=== PATIENT | female | born 2000 | race Caucasian/White ===

== ENCOUNTER → 2022-08-05 | Outpatient (CLI) | payer MEDICAID, SELFPAY ==
[2022-08-05 12:23] LABS: Absolute Lymphocyte Count 2.49 X10^3/uL (0.83-4.51); Absolute Neutrophil Count 6.2 X10^3/uL (2.0-7.7); Basophil# 0.03 X10^3/uL; Basophil% 0.3 % (0-1); Eosinophil# 0.14 X10^3/uL; Eosinophils% 1.5 % (0-5); Hematocrit 39.4 % (37-47); Hemoglobin 13.6 g/dL (12.0-15.0); Lymphocyte # 2.49 X10^3/ul (0.83-4.51); Lymphocyte % 26.2 % (19-41); Mean Corp Hgb Conc 34.5 g/dL (32-36); Mean Corpuscular Hgb 29.2 pg (27.0-32.0); Mean Corpuscular Volume 84.7 fL (81-99); Mean Platelet Vol. 9.4 fl (6.2-12.0); Monocyte# 0.55 X10^3/uL; Monocyte% 5.8 % (0-10); NRBC Flagged by Analyzer 0 % (0-5); Neutrophil # 6.19 X10^3/uL (2.7-7.7); Platelet Count 312 K/mm3 (150-450); RBC Distribution Width CV 12.4 % (11.6-14.6); RBC Distribution Width SD 37.8 fl (35.1-43.9); Red Blood Count 4.65 M/mm3 (4.2-5.4); White Blood Count 9.5 K/mm3 (4.4-11.0)
[2022-08-05 16:25] LABS: HIV - WCH Non-Reactive (Nonreactive); Hepatitis B Surface Antigen Non-Reactive (Nonreactive); Hepatitis C Antibody Non-Reactive (Nonreactive); Rubella IgG Reactive (Nonreactive); Syphilis Antibodies Non-reactive
[2022-08-06 14:56] LABS: V-Zoster IgG (Immunity) 859 index (Immune >165)
[2022-08-07 07:08] LABS: Chlamydia By Nucleic Acid AMP Negative (Negative)
[2022-08-07 07:53] LABS: Gonococcus By Nucleic Acid AMP Negative (Negative)
[2022-08-14 22:24] LABS: HPV APTIMA, High Risk Positive (Negative); HPV Reflexed? YES, CHARGE PATIENT
== END | disposition home or self-care (01) ==
LOC: LABSPEC 11:30
PROVIDERS: Visit Provider Obstetrics & Gynecology
DX: Z34.81 Encounter for supervision of other normal pregnancy, first trimester (principal); Z12.4 Encounter for screening for malignant neoplasm of cervix; Z11.3 Encounter for screening for infections with a predominantly sexual mode of transmission
CPT/HCPCS: 36415; 85025; 86703; 86762; 86780; 86787; 86803; 87086; 87340; 87491; 87591; 87624; 88175; G0145

== ENCOUNTER → 2022-08-14 | Outpatient (CLI) | payer MEDICAID, SELFPAY ==
[2022-08-14 12:28] LABS: Amphetamine Urine VISTA NEGATIVE (<1000 ng/mL); Barbiturate Urine VISTA NEGATIVE (< 200 ng/mL); Benzodiazepine Urine VISTA NEGATIVE (< 200 ng/mL); Cocaine Urine VISTA NEGATIVE (< 300 ng/mL); Ecstacy Urine VISTA NEGATIVE (< 500 ng/mL); Methadone Urine VISTA NEGATIVE (< 300 ng/mL); PCP Urine VISTA NEGATIVE (< 25 ng/mL); THC Urine VISTA NEGATIVE (< 50 ng/mL); Vista UDS pH Range 7
== END | disposition home or self-care (01) ==
LOC: LABSPEC 11:42
PROVIDERS: Referring Provider Obstetrics & Gynecology; Visit Provider Obstetrics & Gynecology
DX: Z34.90 Encounter for supervision of normal pregnancy, unspecified, unspecified trimester (principal)
CPT/HCPCS: 80307; 87086; 87088

== ENCOUNTER → 2022-08-26 | Outpatient (CLI) | payer MEDICAID, SELFPAY ==
[2022-08-26 11:19] LABS: Absolute Lymphocyte Count 2.08 X10^3/uL (0.83-4.51); Absolute Neutrophil Count 5.6 X10^3/uL (2.0-7.7); Basophil# 0.03 X10^3/uL; Basophil% 0.4 % (0-1); Eosinophil# 0.13 X10^3/uL; Eosinophils% 1.6 % (0-5); Hematocrit 39.1 % (37-47); Hemoglobin 13.2 g/dL (12.0-15.0); Lymphocyte # 2.08 X10^3/ul (0.83-4.51); Lymphocyte % 25.4 % (19-41); Mean Corp Hgb Conc 33.8 g/dL (32-36); Mean Corpuscular Hgb 28.7 pg (27.0-32.0); Monocyte# 0.31 X10^3/uL; Monocyte% 3.8 % (0-10); NRBC Flagged by Analyzer 0 % (0-5); Neutrophil # 5.59 X10^3/uL (2.7-7.7); Neutrophil % 68.2 % (47-70); Platelet Count 286 K/mm3 (150-450); RBC Distribution Width CV 12.2 % (11.6-14.6); RBC Distribution Width SD 37.2 fl (35.1-43.9); White Blood Count 8.2 K/mm3 (4.4-11.0)
[2022-08-26 12:13] LABS: NATERA MAILED SPECIMEN
[2022-08-26 12:36] LABS: HIV - WCH Non-Reactive (Nonreactive); Hepatitis B Surface Antigen Non-Reactive (Nonreactive); Hepatitis C Antibody Non-Reactive (Nonreactive); Rubella IgG Reactive (Nonreactive); Syphilis Antibodies Non-reactive
== END | disposition home or self-care (01) ==
LOC: PAVLAB 11:01
PROVIDERS: Referring Provider Obstetrics & Gynecology; Visit Provider Obstetrics & Gynecology
DX: Z34.81 Encounter for supervision of other normal pregnancy, first trimester (principal)
CPT/HCPCS: 36415; 85025; 86703; 86762; 86780; 86803; 86850; 86900; 86901; 87340

== ENCOUNTER → 2022-10-07 | Outpatient (CLI) | payer MEDICAID, SELFPAY | END | disposition home or self-care (01) | LOC: LABSPEC 11:33 | PROVIDERS: Visit Provider Nurse Practitioner Women's Health | DX: O23.40 Unspecified infection of urinary tract in pregnancy, unspecified trimester (principal) | CPT/HCPCS: 87086 ==

== ENCOUNTER → 2022-11-12 | Outpatient (CLI) | payer MEDICAID, SELFPAY ==
[2022-11-12 11:03] LABS: ROM Internal Control Test YES-OK TO RESULT pt. (Internal QC); ROM Patient Test Negative (Negative)
[2022-11-14 07:08] LABS: Chlamydia By Nucleic Acid AMP Negative (Negative)
[2022-11-14 08:29] LABS: Gonococcus By Nucleic Acid AMP Negative (Negative)
== END | disposition home or self-care (01) ==
PROVIDERS: Referring Provider Registered Nurse; Visit Provider Registered Nurse
DX: O26.899 Other specified pregnancy related conditions, unspecified trimester (principal); N89.8 Other specified noninflammatory disorders of vagina
CPT/HCPCS: 84112; 87205; 87491; 87591

== ENCOUNTER → 2022-12-11 | Outpatient (CLI) | payer MEDICAID, SELFPAY ==
[2022-12-11 11:38] LABS: Absolute Lymphocyte Count 1.75 X10^3/uL (0.83-4.51); Absolute Neutrophil Count 6.6 X10^3/uL (2.0-7.7); Basophil# 0.02 X10^3/uL; Basophil% 0.2 % (0-1); Eosinophil# 0.06 X10^3/uL; Eosinophils% 0.7 % (0-5); Hematocrit 34.1 % (37-47); Hemoglobin 11.4 g/dL (12.0-15.0); Lymphocyte # 1.75 X10^3/ul (0.83-4.51); Lymphocyte % 19.5 % (19-41); Mean Corp Hgb Conc 33.4 g/dL (32-36); Mean Corpuscular Hgb 28.6 pg (27.0-32.0); Mean Corpuscular Volume 85.5 fL (81-99); Mean Platelet Vol. 9.1 fl (6.2-12.0); Monocyte# 0.44 X10^3/uL; Monocyte% 4.9 % (0-10); NRBC Flagged by Analyzer 0 % (0-5); Neutrophil # 6.61 X10^3/uL (2.7-7.7); Neutrophil % 73.5 % (47-70); Platelet Count 250 K/mm3 (150-450); RBC Distribution Width CV 13.5 % (11.6-14.6); RBC Distribution Width SD 42.4 fl (35.1-43.9); Red Blood Count 3.99 M/mm3 (4.2-5.4)
[2022-12-11 12:01] LABS: Glucose Challenge Gest 1H 50g 157 mg/dL (70-140)
[2022-12-11 12:34] LABS: HIV - WCH Non-Reactive (Nonreactive); Syphilis Antibodies Non-reactive
== END | disposition home or self-care (01) ==
LOC: PAVLAB 11:15
PROVIDERS: Referring Provider Obstetrics & Gynecology; Visit Provider Obstetrics & Gynecology
DX: O09.90 Supervision of high risk pregnancy, unspecified, unspecified trimester (principal)
CPT/HCPCS: 36415; 82950; 85025; 86703; 86780

== ENCOUNTER → 2022-12-15 | Outpatient (CLI) | payer MEDICAID, SELFPAY ==
[2022-12-15 07:46] LABS: Glucose GTT-Gestation. Fasting 88 mg/dL (<105)
[2022-12-15 08:58] LABS: Glucose GTT-Gestational 1 Hr 165 mg/dL (<190)
[2022-12-15 10:24] LABS: Glucose GTT-Gestational 2 Hr 143 mg/dL (<165)
[2022-12-15 11:09] LABS: Glucose GTT-Gestational 3 Hr 77 L (<145)
== END | disposition home or self-care (01) ==
LOC: LAB 07:04
PROVIDERS: Referring Provider Obstetrics & Gynecology; Visit Provider Obstetrics & Gynecology
DX: Z13.1 Encounter for screening for diabetes mellitus (principal)
CPT/HCPCS: 36415; 82951; 82952

== ENCOUNTER → 2023-02-10 | Outpatient (CLI) | payer MEDICAID, SELFPAY | END | disposition home or self-care (01) | LOC: LABSPEC 11:42 | PROVIDERS: Referring Provider Obstetrics & Gynecology; Visit Provider Obstetrics & Gynecology | DX: O26.899 Other specified pregnancy related conditions, unspecified trimester (principal); R30.0 Dysuria | CPT/HCPCS: 87086; 87088 ==

== ENCOUNTER → 2023-02-19 | Outpatient (CLI) | payer MEDICAID, SELFPAY | END | disposition home or self-care (01) | LOC: LABSPEC 12:45 | PROVIDERS: Referring Provider Obstetrics & Gynecology; Visit Provider Obstetrics & Gynecology | DX: O09.90 Supervision of high risk pregnancy, unspecified, unspecified trimester (principal); Z3A.00 Weeks of gestation of pregnancy not specified | CPT/HCPCS: 87081 ==

== ENCOUNTER 2023-03-05 17:05 | Inpatient (IN) | payer MEDICAID, SELFPAY ==
[2023-03-05] VITALS (7 sets, daily range): BP systolic 118–139; BP diastolic 72–89; PULSE 82–108; TEMP 36.7–36.8; O2SAT 98; BMI 34.5
[2023-03-05] MEDS: 0.9% Saline Lock 10 ML Syringe IV (18:05)
[2023-03-05 18:26] LABS: Absolute Lymphocyte Count 2.03 X10^3/uL (0.83-4.51); Basophil# 0.03 X10^3/uL; Basophil% 0.3 % (0-1); Eosinophils% 1.1 % (0-5); Hematocrit 35.5 % (37-47); Hemoglobin 11.5 g/dL (12.0-15.0); Lymphocyte # 2.03 X10^3/ul (0.83-4.51); Lymphocyte % 22.8 % (19-41); Mean Corp Hgb Conc 32.4 g/dL (32-36); Mean Corpuscular Hgb 27.8 pg (27.0-32.0); Mean Platelet Vol. 10.1 fl (6.2-12.0); Monocyte# 0.71 X10^3/uL; NRBC Flagged by Analyzer 0 % (0-5); Neutrophil # 5.95 X10^3/uL (2.7-7.7); Neutrophil % 66.8 % (47-70); Platelet Count 250 K/mm3 (150-450); RBC Distribution Width CV 14.1 % (11.6-14.6); RBC Distribution Width SD 43.8 fl (35.1-43.9); Red Blood Count 4.13 M/mm3 (4.2-5.4); White Blood Count 8.9 K/mm3 (4.4-11.0)
[2023-03-05 19:01] LABS: Syphilis Antibodies Non-reactive
[2023-03-05] MEDS: miSOPROStol 25 MCG TABLET VAGINAL ×2 (19:02→23:11)
[2023-03-06] VITALS (61 sets, daily range): BP systolic 108–143; BP diastolic 57–93; PULSE 65–106; RESP 15–16; TEMP 35.5–37.1; O2SAT 97–100
[2023-03-06] MEDS: Lactated Ringers 1,000 ML 50 ML IV ×2 (00:30→15:31)
[2023-03-06] MEDS: Acetaminophen 500 MG Tablet PO ×2 (00:36→19:41)
[2023-03-06] MEDS: DiphenhydrAMINE 50 MG/ML Syringe IV (00:37)
--- NOTE | 2023-03-06 01:58 | HP.PCM.OB_ITS ---
HPI - General General Date of Admission: 03/05/23 HPI Narrative MARKEL LAN, is a 22 F who presents for IOL secondary to IUGR, no vb lof admits good fm Maternal Data Information KATHI Calculator Estimated Delivery Date Method Current WG Current Estimate 03/12/23 LMP (Certain) 39w 1d Other Estimates 03/16/23 Ultrasound #1 38w 4d PFSH PFSH Medical History Depression Palpitations Home Medications cetirizine 10 mg capsule (Zyrtec) 10 mg PO DAILY PRN allergies 08/01/22 [History Last Taken Unknown] multivit-min no.71-iron fum 28 mg-folate no.1 1 mg-dha 300 mg capsule (PNV- Daisy) 1 cap PO DAILY 08/01/22 [History Last Taken Unknown] Allergy/AdvReac Type Severity Reaction Status Date / Time No Known Allergies Allergy Verified 02/26/23 08:44 Family History Mother Breast cancer, Onset Age: 40 not hereditary type of cancer Surgical History History of tonsillectomy and adenoidectomy Social History adopted: No household members: significant other housing: house current occupational status: employed 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 @ [employer] current occupational exposures/hazards: No pets and animals: Yes pets and animals: dog(s) history of recent travel: No sexually active: Yes Smoking Status: Former smoker quit date: 07/07/22 Smokeless tobacco user: other Electronic Cigarette Use: with nicotine quit status: quit date established counseling given: provider counseling alcohol intake: former details: socially prior to substance use type: does not use well-balanced diet: about half the time caffeine: Yes Type: carbonated beverages Number of servings: 1 eating out: 1-3 times/week during the past year weight has: remained stable what type of physical activity do you participate in: none sarwat/jain: None seatbelt use: sometimes do you feel safe at home: Yes additional social history: BF/FOB [employer] History 1 Elective abortions Hx Para 0 Spontaneous abortions Hx # Term Pregnancies Ectopic pregnancies Hx # Pregnancies Multiple births # of living children Visit Details Expected Delivery Route/Plan Labor Preferences- CB/BF classes: [] labor support person: [] labor intervention preferences: [] pain management options preferred: [] cut cord/dad catch: [] : [] PP control planned: [] discussed possible routes of delivery and associated risks: [] special requests: [] Plans Covid status: [] Flu vaccine: [] Tdap vaccine: [] Rhogam: [] LARC form signed: [] Problem list reviewed and updated with the most current plan of care details and appropriate orders placed. Relevant counseling for the gestational age provided. Continue routine care and follow up unless otherwise noted in visit notes/problem list details OB Flowsheet Initial Weight: Not Recorded Date -?-?-?-?-?-?-?-?-?-?-?-?- EGA Weight BP Urine Prot -?-?-?-?-?-?-?-?-?-?-?-?- Glucose FHR FuHt Pres Dilation -?-?-?-?-?-?-?-?-?-?-?-?- Effaced St Visit Note 08/14/22 -?-?-?-?-?-?-?-?-?-?-?-?- 10w 0d 174 lb 6 oz 123/86 Nega tive -?-?-?-?-?-?-?-?-?-?-?-?- Negative 179 -?-?-?-?-?-?-?-?-?-?-?-?- JV- single live IUP measuring 9weeks 3 days consistent with LMP. 09/12/22 -?-?-?-?-?-?-?-?-?-?-?-?- 14w 1d 174 lb 140/84 Negative -?-?-?-?-?-?-?-?-?-?-?-?- Negative 158 -?-?-?-?-?-?-?-?-?-?-?-?- LC- doing well. no concerns. no vb/cramping. declines afp. anatomy to be scheduled with [facility] 10/07/22 -?-?-?-?-?-?-?-?-?-?-?-?- 17w 5d 176 lb 124/82 Negative -?-?-?-?-?-?-?-?-?-?-?-?- Negative 162 -?-?-?-?-?-?-?-?-?-?-?-?- MH-No VB. Review ed PN labs. Some GERD-rev meds. 11/04/22 -?-?-?-?-?-?--?-?-?-?-?-?- 21w 5d 183 lb 8 oz 118/78 Nega tive -?-?-?-?-?-?-?-?-?-?-?-?- Negative 151 -?-?-?-?-?-?-?-?-?-?-?-?- MH-No Vb, LOF. F eeling movement. More anxiety but manageable. Considering zoloft 11/12/22 -?-?-?-?-?-?-?-?-?-?-?-?- 22w 6d 181 lb 6 oz 111/73 Nega tive -?-?-?-?-?-?-?-?-?-?-?-?- Negative 155 -?-?-?-?-?-?-?-?-?-?-?-?- LC- no vb/ctx. h aving questionable LOF. ROM plus sent- negative, neg bv/trich. gential cx sent. 12/02/22 -?-?-?-?-?-?-?-?--?-?-?-?- 25w 5d 187 lb 123/80 Negative -?-?-?-?-?-?-?-?-?-?-?-?- Negative 150 -?-?-?-?-?-?-?-?-?-?-?-?- JV- no lof, vagi nal bleeding but was having dec fm until this am. gct ordered. 12/15/22 -?-?-?-?-?-?-?-?-?-?-?-?- 27w 4d 188 lb 6 oz 125/80 Nega tive -?-?-?-?-?-?-?-?-?-?-?-?- Negative 145 28 -?-?-?-?-?-?-?-?-?-?-?-?- SM- no vb lof go od fm no regular ctx 12/22/22 -?-?-?-?-?-?-?-?-?-?-?-?- 28w 4d 189 lb 2 oz 131/79 Nega tive -?-?-?-?-?-?-?-?-?-?-?-?- Negative 140 -?-?-?-?-?-?-?-?-?-?-?-?- LC- pt with reso lved previa. 5%AC, obtaining NST today, reactive. c/o HR130- 140s at baseline that increases to 160s with activity per pt. cards consult placed. to call if worsens. LC- pt with resolved previa. however with 5%AC, obtaining NST today, reactive. c/o [id number] at baseline that increases to 160s with activity per pt. cards consult placed. to call if worsens. 01/01/23 -?-?-?-?-?-?-?-?-?-?-?-?- 30w 0d 190 lb 122/79 Negative -?-?-?-?-?-?-?-?-?-?--?-?- Negative 150 -?-?-?-?-?-?-?-?-?-?-?-?- JV- IUGR- pt is being monitored by mfm with q 2 week growths/dopplers. NST reactive today 01/08/23 -?-?-?-?-?-?-?-?-?-?-?-?- 31w 0d 193 lb 6 oz 113/74 Nega tive -?-?-?-?-?-?-?-?-?-?-?-?- Negative 150 -?-?-?-?-?-?-?-?-?-?-?-?- MH-NST only reac tive 01/12/23 -?-?-?-?-?-?-?-?-?-?-?-?- 31w 4d 191 lb 4 oz 106/69 Nega tive -?-?-?-?-?-?-?-?-?-?-?-?- Negative 145 -?-?-?-?-?-?-?-?-?-?-?-?- SM- no v lof goo d fm no regular ctx 01/22/23 -?-?-?-?-?-?-?-?-?-?-?-?- 33w 0d 196 lb 4 oz 111/72 Nega tive -?-?-?-?-?-?-?-?-?-?-?-?- Negative 150 -?-?-?-?-?-?-?-?-?-?-?-?- MH-NST only reac tive 01/29/23 -?-?-?-?-?-?-?-?-?-?-?-?- 34w 0d 198 lb 128/70 128/70 Negative -?-?-?-?-?-?-?-?-?-?-?-?- Negative 150 34 -?-?-?-?-?-?-?-?-?-?-?-?- JV- nst reactive . we discussed birthing plan today. only wants BF in room. 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 02/05/23 -?-?-?-?-?-?-?-?-?-?-?-?- 35w 0d 197 lb 6 oz 112/77 Nega tive -?-?-?-?-?-?-?-?-?-?-?-?- Negative 150 -?-?-?-?-?-?-?-?-?-?-?-?- MH-Reactive NST. No VB, LOF or CTX. Good FM. 02/19/23 -?-?-?-?-?-?-?-?-?-?-?-?- 37w 0d 199 lb 114/76 Negative -?-?-?-?-?-?-?-?-?-?-?-?- Negative 150 0 -?-?-?-?-?-?-?-?-?-?-?-?- JV- growth scan from 02/16 states the AC is now up to 10th% and resolved IUGR however MFM is still doing bpp's and growths one more at 39 weeks. if IUGR at 39 week scan likely will require induction. normal dopplers. 02/26/23 -?-?-?-?-?-?-?-?-?-?-?-?- 38w 0d 191 lb 8 oz 121/80 Nega tive -?-?-?-?-?-?-?-?-?-?-?-?- Negative 150 0 -?-?-?-?-?-?-?-?-?-?-?-?- JV- IUGr resolve d but JV- IUGr resolved but mfm re commending 39 weeks IOL 03/05/23 -?-?-?-?-?-?-?-?-?-?-?-?- 39w 0d 201 lb 6 oz 139/81 120/72 120/78 138/89 120/76 118/75 -?-?-?-?-?-?-?-?-?-?-?-?- -?-?-?-?-?-?-?-?-?-?-?-?- NST FHR Rate Baby A Baseline: 130 Variability:: Moderate Accelerations:: 15 x 15 Decelerations:: None NST Reactive:: Yes FHR Category:: Category I Uterine Activity:: irregular ROS Constitutional Constitutional: Reports systems reviewed and no addt'l complaints, except as documented Eyes Eyes: Denies change in vision ENT HEENT: Reports systems reviewed and no addt'l complaints, except as documented; Denies headache(s) Cardiovascular Cardiovascular: Reports systems reviewed and no addt'l complaints, except as documented; Denies chest pain or dyspnea Respiratory/Chest Respiratory/Chest: Reports systems reviewed and no addt'l complaints, except as documented Gastrointestinal Gastrointestinal: Reports systems reviewed and no addt'l complaints, except as documented; Denies abdominal pain Genitourinary Genitourinary: Reports systems reviewed and no addt'l complaints, except as documented, contractions Details: present (irregular) and movement Details: present; Denies dysuria or genital lesions Musculoskeletal Musculoskeletal: Reports systems reviewed and no addt'l complaints, except as documented Neurologic Neurologic: Reports systems reviewed and no addt'l complaints, except as documented Endocrine Endocrinology: Reports systems reviewed and no addt'l complaints, except as documented Vital Signs Vital Signs Vital Signs: 03/05/23 17:29 03/05/23 17:29 03/05/23 17:29 Temperature Temperature Source Pulse Rate 99 Blood Pressure 139/81 H BP Systolic 139 BP Diastolic 81 Pulse Ox 98 03/05/23 17:29 03/05/23 17:29 03/05/23 17:29 Temperature 98.1 F Temperature Source Temporal Pulse Rate 100 Blood Pressure BP Systolic BP Diastolic Pulse Ox 03/05/23 17:29 03/05/23 17:29 03/05/23 17:40 Temperature 98.1 F Temperature Source Pulse Rate Blood Pressure 120/72 BP Systolic 120 BP Diastolic 72 Pulse Ox 98 03/05/23 17:40 03/05/23 17:51 03/05/23 17:51 Temperature Temperature Source Pulse Rate 104 H 97 Blood Pressure 120/78 BP Systolic 120 BP Diastolic 78 Pulse Ox 03/05/23 18:01 03/05/23 18:01 03/05/23 19:15 Temperature 98.1 F Temperature Source Pulse Rate 108 H Blood Pressure 138/89 H BP Systolic 138 BP Diastolic 89 Pulse Ox 03/05/23 19:14 03/05/23 19:15 03/05/23 19:15 Temperature Temperature Source Temporal Pulse Rate 99 Blood Pressure 120/76 BP Systolic 120 BP Diastolic 76 Pulse Ox 03/05/23 19:14 03/05/23 23:09 03/05/23 23:09 Temperature 98.1 F Temperature Source Temporal Pulse Rate Blood Pressure 118/75 BP Systolic 118 BP Diastolic 75 Pulse Ox 03/05/23 23:09 03/05/23 23:09 03/05/23 23:09 Temperature 98.2 F Temperature Source Pulse Rate 82 Blood Pressure BP Systolic BP Diastolic Pulse Ox 98 Weight Weight: 201 lb 6 oz Body Mass Index (BMI) 34.5 Physical Exam Const alert, oriented x3, no apparent distress and healthy appearing HEENT normocephalic and moist oral mucous membranes Head and Scalp: atraumatic Neck full ROM, no lymphadenopathy, supple and thyroid normal General: trachea midline Lymph Lymphatic: no lymphadenopathy noted Chest inspection of chest normal Resp normal respiratory effort Cardio regular rate GI normal to inspection, nondistended, normoactive bowel sounds, soft to palpation and non-tender Inspection: gravid external exam normal Manual OB Exam: estimated gestational size appropriate, presentation cephalic, dilated, effaced and station Extremity normal to inspection General Extremity: Negative for edema Skin no rashes or lesions noted Neuro no focal motor deficits and deep tendon reflexes 2+ bilaterally Motor Exam: strength 5/5 throughout and clonus absent Psych mental status grossly normal Labs Labs Labs: Blood Type O POSITIVE Antibody Screen NEGATIVE Hct 35.5 % (37-47) L Hgb 11.5 g/dL (12.0-15.0) L Syphilis Total Ab Non-reactive VZV IgG Antibody 859 index (Immune >165) Rubella IgG Antibody Reactive (Nonreactive) Hep Bs Antigen Non-Reactive (Nonreactive) Chlamydia DNA (RA) Negative (Negative) Neisseria gonorrhoeae DNA (RA) Negative (Negative) HIV 1&2 Antibody Non-Reactive (Nonreactive) Glucose 1 Hr 50 gm 157 mg/dL (70-140) H Assessment & Plan (1) Seasonal allergies: COMMENT: mainly Spring. Takes zyrtec as needed. (2) Anxiety: COMMENT: not medicated; noting more anxiety, considering zoloft and will call for RX (3) : QUALIFIERS: Weeks of gestation: 38 weeks Qualified Code(s): Z3A.38 - 38 weeks gestation of COMMENT: GBS neg. NIPT low risk, carrier neg. anatomy reviewed. (4) Supervision of high risk , antepartum: COMMENT: [id number], KATHI 03/12/23, boy Yael Malik (5) Abnormal glucose in , antepartum: COMMENT: 3 hr GTT nl (6) ASCUS with 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: COMMENT: Rpt pp (7) IUGR (intrauterine growth restriction) affecting care of mother: COMMENT: - NST at [facility], Mondays- BPP every other week at [facility]-get NST on mondays when not getting BPP. Growth US 4/6/23 37% AC at 5%. Growth US every 2 weeks, umbilical artery doppler weekly and delivery depends on EFW%. consider delivery 38-39weeks per MFM, 5/ growth 8% 6.5 AC now 10th% and considered resolved if still at 39 weeks will have another growth scan as of 02/23- mfm recommending IOL at 39 weeks regardless due to h/o IUGR earlier in the . set up for 03/05 at 7pm (8) Encounter for induction of labor: COMMENT: cytotec IOL PLAN: Plan Patient presents IOL, plan management for with cytotec then pitocin. Pain management: plans epidural. GBS negative. Management of any complications: IUGR I have reviewed the [facility] and made any clinically relevant updates.
[2023-03-06] MEDS: miSOPROStol 25 MCG TABLET VAGINAL (03:38)
[2023-03-06] MEDS: 0.9% Normal Saline Single 100 ML IV.SOLN. INTRA-UTER (07:36)
--- NOTE | 2023-03-06 07:42 | PCM.PN.BLA ---
Progress Note Doing well with contractions current tracing: FHT: 145 Moderate variability reactive no decelerations category I tracing [place]: moderate irregular Contractions SVE: 2/50/-2 Membranes: Intact A/P: Licona bulb placed start pitocin and titrate per protocol when appropriate AROM when appropriate continue position changes anticipate Multi Select Codes Urinary/Genital Urinary/Genital CPT Codes: No Charge
[2023-03-06] MEDS: Oxytocin 15 Units/NS 250ml 15 UNITS/250 ML IV.SOLN 2 UNITS IV (08:11)
[2023-03-06] MEDS: LACTATED RINGERS 500 ML 999 ML IV ×2 (12:12→14:03)
[2023-03-06] MEDS: fentaNYL-bupivacaine (epidural) 100 ML BAG EPIDURAL ×3 (12:54→21:49)
--- NOTE | 2023-03-06 16:20 | PCM.PN.BLA ---
Progress Note comfortable with epidural current tracing: FHT: 145 Moderate variability reactive no decelerations category II tracing [place]: 4-5 minute Contractions Pitocin: 4mu reviewed tracing abnormalities since last note: Reviewed strip with Dr Arteaga. Plan to continue pitocin titration A/P: continuous FHT continue pitocin titration per protocol continue position changes Anticipate Assessment & Plan Assessment/Plan (1) Encounter for induction of labor: (2) IUGR (intrauterine growth restriction) affecting care of mother: (3) Abnormal glucose in , antepartum: (4) ASCUS with 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: (5) Supervision of high risk , antepartum: (6) : QUALIFIERS: Weeks of gestation: 38 weeks Qualified Code(s): Z3A.38 - 38 weeks gestation of (7) Anxiety: (8) Seasonal allergies: Multi Select Codes Urinary/Genital Urinary/Genital CPT Codes: No Charge
[2023-03-06] MEDS: Ondansetron 4 MG/2 ML Vial IV (17:04)
--- NOTE | 2023-03-06 17:44 | PCM.PN.BLA ---
Progress Note comfortable with epidural current tracing: FHT: 140 Moderate variability reactive with stimulation, recurrent variables category II tracing [place]: 3-4 minute Contractions SVE: 5/70/-1 Pitocin at 6mu A/P: IUPC placed, plan for amnioinfusion continue to titrate pitocin continue position changes Dr Arteaga reviewed strip and agrees with plan of care. 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: (5) Supervision of high risk , antepartum: (6) : QUALIFIERS: Weeks of gestation: 38 weeks Qualified Code(s): Z3A.38 - 38 weeks gestation of (7) Anxiety: (8) Seasonal allergies: Procedures Urinary/Genital 52xxx-59xxx: No Charge
[2023-03-06] MEDS: Amnioinfusion- 0.9% NS 1,000 ML IV.SOLN. 400 ML INTRA-UTER (18:05)
[2023-03-06] MEDS: Lactated Ringers 1,000 ML 200 ML IV (20:48)
[2023-03-06] MEDS: Sodium Citrate/Citric Acid 30 ML UDC PO (22:20)
--- NOTE | 2023-03-06 22:32 | OP.PCM_ITS ---
Assessment & Plan (1) Encounter for induction of labor: COMMENT: cytotec IOL (2) IUGR (intrauterine growth restriction) affecting care of mother: COMMENT: - NST at [facility], Mondays- BPP every other week at [facility]-get NST on mondays when not getting BPP. Growth US 12/18/22 37% AC at 5%. Growth US every 2 weeks, umbilical artery doppler weekly and delivery depends on EFW%. consider delivery 38-39weeks per [facility], 01/12 growth 8% 6.5 AC now 10th% and considered resolved if still at 39 weeks will have another growth scan as of 02/23- [facility] recommending IOL at 39 weeks regardless due to h/o IUGR earlier in the . set up for 03/05 at 7pm (3) Abnormal glucose in , antepartum: COMMENT: 3 hr GTT nl (4) ASCUS with 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: COMMENT: Rpt pp (5) Supervision of high risk , antepartum: COMMENT: [id number], KATHI 03/12/23, kerrie Malik (6) : QUALIFIERS: Weeks of gestation: 38 weeks Qualified Code(s): Z3A.38 - 38 weeks gestation of COMMENT: GBS neg. NIPT low risk, carrier neg. anatomy reviewed. (7) Anxiety: COMMENT: not medicated; noting more anxiety, considering zoloft and will call for RX (8) Seasonal allergies: COMMENT: mainly Spring. Takes zyrtec as needed. (9) Variable heart rate decelerations, antepartum: (10) delivery delivered: COMMENT: SM/KW IOL IUGR recurrent decels cat II 7 cm LTCS Maternal Data Information KATHI Calculator Estimated Delivery Date Method Current WG Current Estimate 03/12/23 LMP (Certain) 39w 2d Other Estimates 03/16/23 Ultrasound #1 38w 5d Final KATHI Source: LMP Gestational age: 39 Details Operative Information Pre-Operative Diagnosis: see a/p diagnoses Post-Operative Diagnosis: same Indications Narrative: surgeon: Fatmata Arteaga MD Procedure Type: low transverse tack puller #1: Anni Mccoy tack puller #2: Raisa Hawkins Type of Anesthesia: Epidural Special Medications: none Drain: Licona to straight drain Fluids Replaced: crystalloid Findings Description of Procedure: Patient presented for induction of labor secondary to IUGR. Patient underwent Cytotec followed by Pitocin induction of labor. Patient may change to 5 to 6 cm and developed recurrent variable decelerations and intermittent late decelerations therefore the Pitocin was turned off. After recovery the Pitocin was restarted and patient may change to 6 cm however developed again recurrent variable decelerations. Again the Pitocin was shut off and heart rate tracing became category 1 again after being category 2. Again after the third time the Pitocin was restarted and the patient developed a category 2 tracing with recurrent moderate to severe heart rate variable decelerations and the patient was only 6 to 7 cm and was remote from delivery enough, developed minimal variability and increasing heart rate baseline and therefore the decision was made to proceed with primary low-transverse . Patient was consented. The patient was placed in the dorsal supine position with leftward tilt. Patient was prepped and draped in the normal sterile fashion. Pfannenstiel skin incision was made with the scalpel and carried through to the underlying layer of fascia with the scalpel. Fascia was nicked in the midline and the incision extended laterally. The rectus bellies were dissected off superiorly and inferiorly with out complication both sharply and bluntly. The peritoneum was entered digitally. The incision was stretched and a low transverse uterine incision was made with the scalpel. The infant's head was delivered atraumatically followed by the anterior and posterior shoulders without complication the rest of the delivered. The cord was clamped and cut and the was handed off to awaiting nurse. The placenta was delivered spontaneously immediately following and was noted to be intact and have a three- vessel cord. The uterus was exteriorized cleared of all clots and debris, and the incision was closed in a single layer closure using #1 Monocryl. The ovaries and fallopian tubes were noted to be within normal limits. The uterus was returned to the maternal abdomen and gutters were cleared of all clots and debris. The peritoneum was closed with 3-0 Monocryl in a running fashion. Gloves were changed prior to fascial closure. Fascia was closed with 0 PDS in a running fashion. Subcutaneous tissue was copiously irrigated and the skin was closed with 3-0 Monocryl in a subcuticular fashion. Mepilex dressing was applied without complication. Patient was taken to recovery in stable condition. It was discussed with the patient that based on the clinical information obtained during this encounter, combined with her history, at this time I would recommend vaginal or cesareans for future deliveries if further pregnancies are desired. Placental Delivery Description: Spontaneous Placenta Disposition: [facility] Cord Vessel Description: 3 Vessels Delayed Cord Clamping: Yes Complications Risks of Surgery Discussed w/Patient: Bleeding, Infection, Need for Future C- Sections and Injury to surrounding structure(s) including bowel and bladder Complications: none Admit VTE Documentation VTE Present on Admission: No VTE Mechan Device Prophylaxis: SCD's Procedures Urinary/Genital 52xxx-59xxx: [id number] Delivery [facility]
[2023-03-06] MEDS: Cefazolin 2 GM in 0.9% Normal Saline 100 ML IV (22:40)
--- NOTE | 2023-03-06 22:40 | DCINST_ITS ---
Discharge Instructions Procedure Diet Discharge Diet: No restrictions Activity Discharge Activity: May Not Drive (for 2 weeks or while taking narcotic pain medications.), May Shower and May Take a Tub Bath (in 7 days) May shower in (days): 0 May resume sexual activity in: 4-6 weeks Weight Bearing Status: Full weight bearing Lifting Restrictions: 20 pounds Dressing / Incision Call your doctor if your incision/area has: Continuous Slow Oozing, Sudden Increased Bleeding, Increased Pain/ Swelling, Increased Redness and Foul Smelling Discharge Call your doctor if you observe: Fever of 101 or Higher and Using more than 1 pad per hour (for 2 hours) Suture Line Care: Avoid Pulling/Pushing and Avoid Pinching/Bending Cleanse incision/area with: Soap & Water and Keep Dressing Clean & Dry Follow Up Care Please Follow Up With: Fatmata Arteaga MD When: Call [phone] to make an appointment for an incision check in 1-2 weeks. Test Results: Test results from this visit will be discussed in further detail at your follow- up appointment, if applicable. Discharge Plan Admission Admit Date/Time: 03/05/23 17:05 Attending Provider: Fatmata Arteaga Primary Care Provider: Care PhysicianRebeca Primary Discharge Orders/Prescriptions Prescriptions: New oxycodone-acetaminophen [Percocet] 5-325 mg tablet 1 tab PO Q6H PRN (Reason: pain) 7 Days Qty: 20 0RF naproxen [naproxen] 500 mg tablet 500 mg PO BID PRN PRN (Reason: Pain) Qty: 30 1RF Continued PNV-[place] 28-1-300 mg capsule 1 cap PO DAILY Zyrtec 10 mg capsule 10 mg PO DAILY PRN (Reason: allergies) Referrals / Follow Up: Care PhysicianRebeca Primary [Primary Care Provider] - Disposition Disposition (needs filled in before D/C Order can be placed): Home, Self Care
--- NOTE | 2023-03-06 22:58 | PLAC_PTH ---
PATIENT: MARKEL LAN LOC: [facility] U#:[id number] AGE/SX: 22 ROOM: WP015 RE03/05/[address]: Dr. Fatmata Arteaga MD : 2000 BED: 1 DIS: 03/08/2023 SPEC #: [id number] RECD: 03/07/23 01:58 STATUS: JENNIE ZACHARIAH #: [id number] LYNNE: 03/06/23 22:[address]: Fatmata Arteaga DEPT: SURGICAL PATHOLOGY RECD BY: Cha Galaviz ENTERED: 03/09/23 09:39 SP TYPE: PLACENTA OTHR DR: No Primary Care Phys Tissues: Placenta, NOS Procedures: Surgery Specimen Level V HEADER OPERATION: Primary section PRE-OP DIAGNOSIS: IUGR TISSUE SUBMITTED: Placenta MICROSCOPIC DIAGNOSIS Placenta: Placental disc - third trimester placenta (416 gm). - Focal villous congestion and hemorrhage Membranes - no pathologic diagnosis. Umbilical cord - three blood vessels and no pathologic diagnosis. S[facility]:[place] 03/10/2023 MICROSCOPIC DESCRIPTION Slides are reviewed. GROSS DESCRIPTION SPECIMEN: PLACENTA / CLINICAL INFORMATION: A. Weight: 2.665 kg B. Gestational Age: 39 weeks C. Sex: Male PLACENTAL WEIGHT (POST FIXATION): 416 gm PLACENTAL DIMENSIONS: 18.0 x 15.0 x 3.0 cm PLACENTAL SHAPE: Usual ovoid PLACENTAL WEIGHT FOR GESTATIONAL AGE: Within 10-99th percentile MEMBRANES - Present A. Insertion: Marginal B. Site of rupture from edge: 7 cm from edge of placental disc C. Color of membrane: Salgado-prieto D. Abnormalities: None UMBILICAL CORD - Present A. Color: Salgado-prieto B. Insertion: Paracentral C. Length: 37.0 cm D. Diameter: 1.0 cm E. Number of vessels: Three F. Abnormalities: None PLACENTAL DISC - Present A. Color of surface: Salgado-prieto B. surface abnormalities: None C. Maternal cotyledons: Intact with minimal tears D. Attached retro placental clot: No clot E. Cut surface: Dark red and spongy F. Lesions: None G. Separate clot: Absent SECTIONS SUBMITTED: 1. Membrane roll 2. Cord, maternal end 3. Cord, end 4. Placental disc, and maternal surfaces 5. Placental disc, and maternal surfaces 6. Placental disc, and maternal surfaces S[place] 03/10/2023 TC:5 CPT: 47946
[2023-03-06] MEDS: Oxytocin 15 Units/NS 250ml 15 UNITS/250 ML IV.SOLN 83 UNITS IV (23:45)
[2023-03-07] VITALS (80 sets, daily range): BP systolic 98–151; BP diastolic 54–99; PULSE 73–118; RESP 14–19; TEMP 36.1–37.3; O2SAT 90–100
[2023-03-07] MEDS: Ketorolac 30 MG/ML Syringe IV ×4 (00:23→17:54)
[2023-03-07] MEDS: 0.9% Saline Lock 10 ML Syringe IV ×3 (00:23→17:55)
[2023-03-07] MEDS: Lactated Ringers 1,000 ML 100 ML IV (00:24)
[2023-03-07] MEDS: Acetaminophen 500 MG Tablet 1000 MG PO ×4 (01:32→19:53)
--- NOTE | 2023-03-07 02:07 | NURSING ---
Epidural catheter removed after recovery period. Blue tip noted to be intact.
[2023-03-07 03:24] LABS: Pathology Specimen OB SEE PATHOLOGY REPORT
[2023-03-07 05:48] LABS: Hematocrit 31.3 % (37-47); Hemoglobin 10.3 g/dL (12.0-15.0); Mean Corp Hgb Conc 32.9 g/dL (32-36); Mean Corpuscular Hgb 28.3 pg (27.0-32.0); Mean Platelet Vol. 9.7 fl (6.2-12.0); Platelet Count 229 K/mm3 (150-450); RBC Distribution Width SD 43.2 fl (35.1-43.9); Red Blood Count 3.64 M/mm3 (4.2-5.4); White Blood Count 14.7 K/mm3 (4.4-11.0)
--- NOTE | 2023-03-07 08:33 | PCM.PN.OB ---
Subjective Subjective Patient doing well without complaints. Tolerating PO. Ambulating and voiding without difficulty. Feeding well. Denies chest pain, shortness of breath, calf pain/swelling, fevers, chills, lightheadedness. Objective Data Objective Data Vital Signs: Vital Signs Temp Pulse Resp BP Pulse Ox O2 Del Method 97.0 F L 85 18 114/59 L 98 Room Air 03/07/23 05:39 03/07/23 08:00 03/07/23 05:39 03/07/23 08:00 03/07/23 08:00 03/07/23 05:39 Oxygen Delivery Method Room Air Weight: 201 lb 6 oz Body Mass Index (BMI) 34.5 Intake & Output: Intake and Output for Last 24 Hours 03/05/23 03/06/23 03/07/23 23:59 23:59 23:59 Intake Total 3189.85 / 3189.85 615 / 615 Output Total 1550 / 1550 600 / 600 Balance 1639.85 / 1639.85 15 / 15 Lab / Micro Data Attestation: I reviewed the patient's lab results. Result Diagrams: 03/07/23 05:40 Labs: Laboratory Results - last 24 hr 03/07/23 05:40: WBC 14.7 H, RBC 3.64 L, Hgb 10.3 L, Hct 31.3 L, MCV 86.0, MCH 28.3, MCHC 32.9, RDW Std Deviation 43.2, RDW Coeff of Grace 14.0, Plt Count 229, MPV 9.7 ROS Constitutional Constitutional: Reports systems reviewed and no addt'l complaints, except as documented; Denies anorexia or headache(s) Cardiovascular Cardiovascular: Reports systems reviewed and no addt'l complaints, except as documented; Denies dizziness, dyspnea, nausea or tachypnea Respiratory/Chest Respiratory/Chest: Reports systems reviewed and no addt'l complaints, except as documented; Denies cough, dyspnea, shortness of breath at rest or tachypnea Gastrointestinal Gastrointestinal: Reports systems reviewed and no addt'l complaints, except as documented; Denies abdominal pain, constipation or nausea Genitourinary Genitourinary: Reports systems reviewed and no addt'l complaints, except as documented; Denies burning urination, difficulty urinating, dysuria, urinary frequency or urinary incontinence Musculoskeletal Musculoskeletal: Reports systems reviewed and no addt'l complaints, except as documented Integumentary Integumentary: Reports systems reviewed and no addt'l complaints, except as documented Neurologic Neurologic: Reports systems reviewed and no addt'l complaints, except as documented; Denies abnormal speech, dizziness or headache(s) Psychiatric Psychiatric: Reports systems reviewed and no addt'l complaints, except as documented Endocrine Endocrinology: Reports systems reviewed and no addt'l complaints, except as documented Hematologic/Lymphatic Hematologic/Lymphatic: Reports systems reviewed and no addt'l complaints, except as documented Physical Exam Const alert, oriented x3 and no apparent distress Neck full ROM Resp normal respiratory effort, normal air movement and no retractions Effort and Inspection: able to speak in complete sentences and symmetric chest movement GI soft to palpation Inspection: incision intact Bladder / Kidney Exam: bladder normal to palpation Uterus Palpation: uterus fundus firm Extremity normal to inspection and full ROM Psych mental status grossly normal, thought process normal and cooperative Assessment & Plan (1) delivery delivered: COMMENT: SM/KW IOL IUGR recurrent decels cat II 7 cm LTCS (2) 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
[2023-03-07] MEDS: Senna/Docusate Sodium 1 Tablet PO (12:05)
--- NOTE | 2023-03-07 18:56 | CASEMGMT ---
Social Work Assessment Labor and Delivery Unit Patient Address: [facility] [address] [place] Phone number: [phone] Date of Referral: 03/07/2023 Referred By: Jenni Date of Intervention: ?03/07/2023 Time of Intervention:? 4:30 Reason for Referral:? Anx/depression history History obtained from: medical records and mother of baby Household composition: MOB, FOB and baby Patient's parent/guardian status: MOB and FOBKing, have been together approximately 4 years. This is both parents first child. Medical History: MOB had sufficient care. No prior pregnancies or children. Baby Boy Scott, 6lbs 2oz, 8/9 apgars. Educational Status: Both parents deny literacy concerns. 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 Financial Status: Both parents employed, denies concerns Infant Supplies: MOB reports having car seat and bed for baby as well as all other necessary supplies. Childcare/Caregiver(s):? MOB Transportation:? Reports reliable transportation Programs/Agencies Involved: Medicaid and [facility] Children Services/Legal Issues:? Denies Behavioral Health Issues: ?? Mental Health History:? MOB reports depression an anxiety history. Reports depression was mostly situational and that she took Zoloft in the past which was helpful. MOB considering Zoloft if needed, will contact doctor. Denies any current mental health concerns. Denies family history. Substance Use History:?? MOB and FOB deny substance abuse for selves Family History:?? Denies?? Drug Screens: None Family/Social Stressors:? Parents deny any current stressors. Support Systems: MOB reports baby?s grandparents are supportive. Depression: Provided education and resources, parents receptive. Shaken Baby: Provided education and parents receptive. Safe Sleeping: Provided education and parents receptive. ASSESSMENT:? MOB and FOB listened, were receptive and responded appropriately. No current mental health concerns and mental health resources/[facility] resource list given. MOB expressed some difficulty with baby latching and is actively working with and has [place] services. PLAN:? No other services requested or indicated. Anni Fajardo COMBINE DRIVER, [employer]AD[employer]
[2023-03-08] MEDS: Acetaminophen 500 MG Tablet 1000 MG PO ×2 (01:35→07:28)
[2023-03-08 01:36] VITALS: BP 124/75; PULSE 90; RESP 20; TEMP 37; O2SAT 99
[2023-03-08 01:37] VITALS: BP 124/75; PULSE 93; TEMP 37
--- NOTE | 2023-03-08 07:20 | NURSING ---
bedside report given to Dara Lau RN who is assuming care of pt at this time
[2023-03-08] MEDS: Senna/Docusate Sodium 1 Tablet PO (07:29)
[2023-03-08] MEDS: Naproxen 500 MG Tablet PO ×2 (07:29)
[2023-03-08 07:32] VITALS: BP 126/76; PULSE 83
[2023-03-08 07:35] VITALS: BP 126/76; PULSE 83; RESP 18; TEMP 36.3; O2SAT 98
[2023-03-08 07:37] VITALS: PULSE 86; O2SAT 98
--- NOTE | 2023-03-08 07:56 | PCM.PN.OB ---
Subjective Subjective Patient doing well without complaints. Tolerating PO. Ambulating and voiding without difficulty. Feeding well. Denies chest pain, shortness of breath, calf pain/swelling, fevers, chills, lightheadedness. Objective Data Objective Data Vital Signs: Vital Signs Temp Pulse Resp BP Pulse Ox O2 Del Method 97.3 F L 86 18 126/76 H 98 Room Air 03/08/23 07:35 03/08/23 07:37 03/08/23 07:35 03/08/23 07:35 03/08/23 07:37 03/08/23 07:35 Oxygen Delivery Method Room Air Weight: 201 lb 6 oz Body Mass Index (BMI) 34.5 Intake & Output: Intake and Output for Last 24 Hours 03/06/23 03/07/23 03/08/23 23:59 23:59 23:59 Intake Total 3189.85 / 3189.85 1171.67 / 1171.67 Output Total 1550 / 1550 850 / 850 Balance 1639.85 / 1639.85 321.67 / 321.67 Lab / Micro Data Attestation: I reviewed the patient's lab results. Result Diagrams: 03/07/23 05:40 ROS Constitutional Constitutional: Reports systems reviewed and no addt'l complaints, except as documented; Denies anorexia or headache(s) Cardiovascular Cardiovascular: Reports systems reviewed and no addt'l complaints, except as documented; Denies dizziness, dyspnea, nausea or tachypnea Respiratory/Chest Respiratory/Chest: Reports systems reviewed and no addt'l complaints, except as documented; Denies cough, dyspnea, shortness of breath at rest or tachypnea Gastrointestinal Gastrointestinal: Reports systems reviewed and no addt'l complaints, except as documented; Denies abdominal pain, constipation or nausea Genitourinary Genitourinary: Reports systems reviewed and no addt'l complaints, except as documented; Denies burning urination, difficulty urinating, dysuria, urinary frequency or urinary incontinence Musculoskeletal Musculoskeletal: Reports systems reviewed and no addt'l complaints, except as documented Integumentary Integumentary: Reports systems reviewed and no addt'l complaints, except as documented Neurologic Neurologic: Reports systems reviewed and no addt'l complaints, except as documented; Denies abnormal speech, dizziness or headache(s) Psychiatric Psychiatric: Reports systems reviewed and no addt'l complaints, except as documented Endocrine Endocrinology: Reports systems reviewed and no addt'l complaints, except as documented Hematologic/Lymphatic Hematologic/Lymphatic: Reports systems reviewed and no addt'l complaints, except as documented Physical Exam Const alert, oriented x3 and no apparent distress Neck full ROM Resp normal respiratory effort, normal air movement and no retractions Effort and Inspection: able to speak in complete sentences and symmetric chest movement GI soft to palpation Inspection: incision intact Bladder / Kidney Exam: bladder normal to palpation Uterus Palpation: uterus fundus firm Extremity normal to inspection and full ROM Psych mental status grossly normal, thought process normal and cooperative Assessment & Plan (1) delivery delivered: COMMENT: SM/KW IOL IUGR recurrent decels cat II 7 cm LTCS PLAN: s/p LTCS PPD # 2 1. routine post care 2. breast feeding- support given 3. rh positive 4. rubella immune 5. 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
--- NOTE | 2023-03-08 07:58 | DCINST_ITS ---
Discharge Instructions Diet Discharge Diet: No restrictions Activity May shower in (days): 0 May resume sexual activity in: 4-6 weeks Weight Bearing Status: Full weight bearing Dressing / Incision Call your doctor if your incision/area has: Continuous Slow Oozing, Sudden Increased Bleeding, Increased Pain/ Swelling, Increased Redness and Foul Smelling Discharge Call your doctor if you observe: Fever of 101 or Higher and Using more than 1 pad per hour (for 2 hours) Suture Line Care: Avoid Pulling/Pushing and Avoid Pinching/Bending Cleanse incision/area with: Soap & Water and Keep Dressing Clean & Dry Follow Up Care Please Follow Up With: Fatmata Arteaga MD Test Results: Test results from this visit will be discussed in further detail at your follow- up appointment, if applicable. Discharge Plan Admission Admit Date/Time: 03/05/23 17:05 Attending Provider: Fatmata Arteaga Primary Care Provider: Care Physician,No Primary Discharge Orders/Prescriptions Prescriptions: New oxycodone-acetaminophen [Percocet] 5-325 mg tablet 1 tab PO Q6H PRN (Reason: pain) 7 Days Qty: 20 0RF naproxen [naproxen] 500 mg tablet 500 mg PO BID PRN PRN (Reason: Pain) Qty: 30 1RF Continued PNV-[place] 28-1-300 mg capsule 1 cap PO DAILY Zyrtec 10 mg capsule 10 mg PO DAILY PRN (Reason: allergies) Referrals / Follow Up: Care Physician,No Primary [Primary Care Provider] - Disposition Disposition (needs filled in before D/C Order can be placed): Home, Self Care
== END 2023-03-08 11:25 | disposition home or self-care (01) | DRG 540 ==
PROVIDERS: Admitting Provider Obstetrics & Gynecology; Referring Provider Obstetrics & Gynecology; Visit Provider Obstetrics & Gynecology
DX: O36.5930 Maternal care for other known or suspected poor fetal growth, third trimester, not applicable or unspecified (principal); O98.52 Other viral diseases complicating childbirth; F41.9 Anxiety disorder, unspecified; J30.2 Other seasonal allergic rhinitis; O76 Abnormality in fetal heart rate and rhythm complicating labor and delivery; R87.811 Vaginal high risk human papillomavirus (HPV) DNA test positive; O99.52 Diseases of the respiratory system complicating childbirth; Z37.0 Single live birth; O99.344 Other mental disorders complicating childbirth; Z3A.38 38 weeks gestation of pregnancy; Z87.891 Personal history of nicotine dependence
CPT/HCPCS: 59025; 59050; 76815; 85025; 85027; 86780; 86850; 86900; 86901; 88307; 99221; J7030; J7120; A4216; G0378; J2405

== ENCOUNTER 2023-03-13 15:21 | Emergency (ER) | payer MEDICAID, SELFPAY ==
[2023-03-13 15:22] VITALS: BP 126/76; PULSE 77; RESP 14; TEMP 36.8; O2SAT 99; BMI 31.5
--- NOTE | 2023-03-13 15:57 | EX.ED.DYSGE1 ---
HPI <JORJE Reardon - Last Filed: 03/13/23 21:00> History of Present Illness Chief Complaint: Nausea/Vomiting Narrative Narrative: 22-year-old female with no significant medical history who is 1 week presents to the emergency department for 5 days of nausea, vomiting. She seen her TOUR PRODUCTION SUPERVISOR today, who called in a position of Alvin, however secondary to the patient feeling weak, dehydrated, they referred her to the emergency department. Patient did have a , she has had no complications. She denies any blood in her stool or vomit. Patient is currently not breast-feeding. She is here with her mother. PFSH <JORJE Reardon - Last Filed: 03/13/23 21:00> [facility], LAT[facility] Medical History delivery delivered Depression Palpitations Home Medications cetirizine 10 mg capsule (Zyrtec) 10 mg PO DAILY PRN allergies 08/01/22 [History Last Taken Unknown] multivit-min no.71-iron fum 28 mg-folate no.1 1 mg-dha 300 mg capsule (PNV-Powersite) 1 cap PO DAILY 08/01/22 [History Last Taken Unknown] naproxen 500 mg tablet 500 mg PO BID PRN PRN Pain #30 tabs 03/06/23 [Rx Last Taken Unknown] oxycodone-acetaminophen 5 mg-325 mg tablet (Percocet) 1 tab PO Q6H PRN pain 7 days #20 tabs 03/06/23 [Rx Last Taken Unknown] sertraline 25 mg tablet (Zoloft) 25 mg PO DAILY #10 tabs 03/11/23 [Rx Last Taken Unknown] ondansetron 4 mg disintegrating tablet 4 mg PO Q6H #30 tabs 03/13/23 [Rx Last Taken Unknown] promethazine 25 mg tablet 25 mg PO TID PRN nausea and vomiting #20 tabs 03/13/23 [Rx Last Taken Unknown] Allergy/AdvReac Type Severity Reaction Status Date / Time No Known Allergies Allergy Verified 03/13/23 15:22 Family History Mother Breast cancer, Onset Age: 40 not hereditary type of cancer Surgical History History of tonsillectomy and adenoidectomy Social History adopted: No household members: significant other housing: house current occupational status: employed current occupation: [employer] current occupational exposures/hazards: No pets and animals: Yes pets and animals: dog(s) history of recent travel: No sexually active: Yes Smoking Status: Former smoker quit date: 07/07/22 Smokeless tobacco user: other Electronic Cigarette Use: with nicotine quit status: quit date established counseling given: provider counseling alcohol intake: former details: socially prior to substance use type: does not use well-balanced diet: about half the time caffeine: Yes Type: carbonated beverages Number of servings: 1 eating out: 1-3 times/week during the past year weight has: remained stable what type of physical activity do you participate in: none sarwat/christianity: None seatbelt use: sometimes do you feel safe at home: Yes additional social history: BF/FOB [employer] ROS <JORJE Reardon - Last Filed: 03/13/23 21:00> ROS ED ROS Narrative Constitutional: Negative for fever, chills, weight loss. Positive generalized weakness Eyes: Negative for vision loss, vision change, double vision ENT: Negative for any sore throat, ear pain, congestion Cardiovascular: Negative for any chest pain, tightness, palpitations Respiratory: Negative for any cough, sputum production, hemoptysis, dyspnea, dyspnea on exertion, orthopnea Gastrointestinal: Negative for any abdominal pain, diarrhea, constipation, blood in stool, blood in vomit. Positive for nausea and vomiting : Negative for any urinary frequency, dysuria, retention, blood in urine Muscle skeletal: Negative for any muscle joint pain, stiffness, myalgias, arthralgias, neck pain, back pain Neurological: Negative for any headache, syncope, numbness or tingling, dizziness Skin: Negative for any rashes, lumps, itching, abrasions, lacerations Psychiatric: Negative for any depression, anxiety, stress, suicidal ideation, homicidal ideation Hematologic: Negative for any easy bruising, excessive bruising, easy bleeding Allergies: Negative for any eczema, hives, rash EXAM <JORJE Reardon - Last Filed: 03/13/23 21:00> Physical Exam Narrative Exam Narrative: Vital signs reviewed. Patient appears to be in no obvious distress. HEET: Head normocephalic atraumatic, TMs clear bilaterally. Posterior pharynx is clear, moist mucous membranes. Nares clear bilaterally. Neck: Supple with no lymphadenopathy or tenderness. No signs of meningismus, negative jolt sign. Cardiac: Regular rate and rhythm no murmurs gallops or rubs, equal peripheral pulses bilaterally. Respiratory: Lungs clear to auscultation bilaterally. No chest tenderness. Abdomen: Soft, nontender, nondistended. No abdominal bruit or pulsatile masses. No hepatosplenomegaly. Patient had a dressing over the incision site. This appeared well, there is no redness, there is no induration, there is no signs or symptoms of infection. Extremities: No peripheral edema, no signs of gross trauma or deformity. Active full range of motion of all extremities. Neuro: Cranial nerves II through XII intact, no focal neurological deficits. Skin: Clean dry and intact with no rash, purpura, petechiae, vesicles or pustules. Backs/flank: No CVA tenderness, no midline spinal tenderness, no deformity. Psych: Normal mood and affect. No SI, HI or acute psychosis. Const Vital Signs: 03/13/23 15:22 03/13/23 17:21 03/13/23 19:27 Temperature 98.3 F 98.6 F Temperature Source Temporal Oral Pulse Rate 77 64 60 Respiratory Rate 14 16 18 Blood Pressure 126/76 H 126/78 H 141/78 H Blood Pressure Mean 92 94 99 Pulse Ox 99 100 100 Oxygen Delivery Method Room Air Room Air Room Air Positive well nourished and well developed General Appearance ED: well developed <Dr. Everardo Zepeda MD - Last Filed: 03/13/23 16:43> Physical Exam Const Vital Signs: 03/13/23 15:22 03/13/23 17:21 03/13/23 19:27 Temperature 98.3 F 98.6 F Temperature Source Temporal Oral Pulse Rate 77 64 60 Respiratory Rate 14 16 18 Blood Pressure 126/76 H 126/78 H 141/78 H Blood Pressure Mean 92 94 99 Pulse Ox 99 100 100 Oxygen Delivery Method Room Air Room Air Room Air MDM <JORJE Reardon - Last Filed: 03/13/23 21:00> [facility] Lab Data Labs: Laboratory Results - last 24 hr 03/13/23 03/13/23 16:04 18:50 WBC 9.1 RBC 4.14 L Hgb 11.5 L Hct 35.8 L MCV 86.5 MCH 27.8 MCHC 32.1 RDW Std Deviation 41.7 RDW Coeff of Grace 13.4 Plt Count 395 MPV 9.2 Immature Gran % (Auto) 4.400 H Neut % (Auto) 71.0 H Lymph % (Auto) 17.7 L [place] % (Auto) 5.3 Eos % (Auto) 0.9 Baso % (Auto) 0.7 Absolute Neuts (auto) 6.4 Absolute Lymphs (auto) 1.60 Nucleated RBC % 0.2 Sodium 138 Potassium 3.8 Chloride 105 Carbon Dioxide 23.0 Anion Gap 10 BUN 10 Creatinine 0.70 Estim Creat Clear Calc 107.01 Est GFR (MDRD) Af Amer 132 Est GFR (MDRD) Non-Af 109 BUN/Creatinine Ratio 14.3 Glucose 79 Calcium 9.4 Total Bilirubin 0.40 AST 33 ALT 53 Alkaline Phosphatase 110 Total Protein 7.3 Albumin 2.9 L Globulin 4.4 H Albumin/Globulin Ratio 0.7 L Lipase 28 Urine Color Yellow Urine Clarity Sl. Cloudy Urine pH 6.0 Ur Specific [place] 1.015 Urine Protein 30 H Urine Glucose (UA) Normal Urine Ketones 150 A* Urine Occult Blood 250 H Urine Nitrite Negative Urine Bilirubin Negative Urine Urobilinogen Normal Ur Leukocyte Esterase 25 H Urine RBC 0 SEEN Urine WBC 0-5 SEEN Ur Squamous Epith Cells 0-5 SEEN Urine Bacteria 0 SEEN Urine Mucus 0 SEEN Radiography Diagnostic Testing: Clinical Impression(s) from Imaging Studies Acute Abdomen Series 03/13/23 17:58 IMPRESSION: Normal x-ray examination of the chest, abdomen, and pelvis. Electronically Signed: Leroy Fitch MD at 18:14 EDT , Treatment and Re-Evaluation :: Patient appears to be in no distress, patient's vital signs are stable. Patient presents to the emergency department with nausea, vomiting for 5 days for 1 week. Physical examination showed no acute abdominal pathology. No peritoneal signs. Patient's incision site looks well-appearing. Patient will receive 2 L of normal saline, basic laboratory values, IV Zofran, urinalysis to rule out any infection. Patient received 2 L of normal saline, IV Zofran 4 mg x 2, Phenergan, Reglan, Benadryl.After these medications, patient still exhibits little relief. She still feels nauseous. Patient's laboratory values showed slight anemia with hemoglobin 11.5 however this is improvement from the 24th which was 10.3. Patient's chemistries are grossly unremarkable, electrolytes lipase all unremarkable. Patient still has yet to urinate despite 2 L of normal saline. Patient did receive an x-ray of the abdomen and pelvis concerning for any ileus, obstruction. This was a negative examination. Patient is still being observed. On reassessment, the patient does feel slightly better. Vital signs are stable. Patient did get up and use the restroom. Urinalysis was negative for any infection. Patient was given a Sprite to see if she is able to pass an oral challenge. I spoke with the patient, the patient's mother at length. The patient was able to keep the Sprite down. Patient does feel well enough for discharge home. She will be discharged home, there is no evidence of any acute abdominal process. She will be given another prescription of Phenergan, she will follow-up closely outpatient. She was given strict return precautions return for worsening fever chills nausea or vomiting. She is happy with the plan of care, all questions answered. Patient stable for discharge. <Dr. Everardo Zepeda MD - Last Filed: 03/13/23 16:43> [facility] Narrative Medical decision making narrative: I have personally performed a face to face assessment of the patient and have reviewed the LUZ MAIRNA Note. I performed a substantive portion of the visit including all aspects of the following. My gallego findings include: History: Patient presents with nausea vomiting and diarrhea. She had a 1 week ago. About 4 days ago she started with nausea vomiting. She has had some watery diarrhea. No blood has been seen in any of this. No fevers or chills. She has some abdominal discomfort left over from surgery but states it is the same or getting slightly better. She has had mild vaginal bleeding but that is also slowly decreasing. No malodorous discharge. She has no urinary symptoms. No significant history of nausea vomiting. She has no meds for nausea at home although her physician has called in Zofran today but it has not been picked up. She talked to her PROGRAM THERAPIST physician who referred her in here. Exam: Patient is awake alert. She looks like she does not feel real well. But not toxic. Mucous membranes are little bit dry. But her heart rate is normal. Lungs are clear. Abdomen shows a beautifully healing incision. No sign of inflammation or drainage at all. Abdomen is overall benign. She has minimal tenderness diffusely but no rebound or guarding. She actually has a very good bowel sounds. They are not increased or decreased and they sound normal. She is not distended. Medical Decision Making: We will do basic blood work, add IV fluids that she has not been drinking much, add Zofran. She will be rechecked. 16:40 patient just vomited again. This is not long after getting fluids and Zofran. But we will try a dose of Phenergan to see if this works better for her. Her CBC is normal other than minimal EMEA which would be normal for just delivering. Her electrolytes show acute abnormalities. Liver function test showed no significant abnormalities. Lipase is normal. Lab Data Labs: Laboratory Results - last 24 hr 03/13/23 03/13/23 16:04 18:50 WBC 9.1 RBC 4.14 L Hgb 11.5 L Hct 35.8 L MCV 86.5 MCH 27.8 MCHC 32.1 RDW Std Deviation 41.7 RDW Coeff of Grace 13.4 Plt Count 395 MPV 9.2 Immature Gran % (Auto) 4.400 H Neut % (Auto) 71.0 H Lymph % (Auto) 17.7 L [place] % (Auto) 5.3 Eos % (Auto) 0.9 Baso % (Auto) 0.7 Absolute Neuts (auto) 6.4 Absolute Lymphs (auto) 1.60 Nucleated RBC % 0.2 Sodium 138 Potassium 3.8 Chloride 105 Carbon Dioxide 23.0 Anion Gap 10 BUN 10 Creatinine 0.70 Estim Creat Clear Calc 107.01 Est GFR (MDRD) Af Amer 132 Est GFR (MDRD) Non-Af 109 BUN/Creatinine Ratio 14.3 Glucose 79 Calcium 9.4 Total Bilirubin 0.40 AST 33 ALT 53 Alkaline Phosphatase 110 Total Protein 7.3 Albumin 2.9 L Globulin 4.4 H Albumin/Globulin Ratio 0.7 L Lipase 28 Urine Color Yellow Urine Clarity Sl. Cloudy Urine pH 6.0 Ur Specific [place] 1.015 Urine Protein 30 H Urine Glucose (UA) Normal Urine Ketones 150 A* Urine Occult Blood 250 H Urine Nitrite Negative Urine Bilirubin Negative Urine Urobilinogen Normal Ur Leukocyte Esterase 25 H Urine RBC 0 SEEN Urine WBC 0-5 SEEN Ur Squamous Epith Cells 0-5 SEEN Urine Bacteria 0 SEEN Urine Mucus 0 SEEN Radiography Diagnostic Testing: Clinical Impression(s) from Imaging Studies Acute Abdomen Series 03/13/23 17:58 IMPRESSION: Normal x-ray examination of the chest, abdomen, and pelvis. Electronically Signed: Leroy Fitch MD at 18:14 EDT , Discharge Plan Triage Chief Complaint: Nausea/Vomiting ED Midlevel Provider: Marc Chawla ED Provider: Everardo Zepeda Dx/Rx/DC Orders Clinical Impression: Nausea & vomiting Instructions: ED Diet Vomiting Diarrhea, ED Vomiting (Adult) Prescriptions: New promethazine 25 mg tablet 25 mg PO TID PRN (Reason: nausea and vomiting) Qty: 20 0RF No Action PNV-Powersite 28-1-300 mg capsule 1 cap PO DAILY Zyrtec 10 mg capsule 10 mg PO DAILY PRN (Reason: allergies) sertraline [Zoloft] 25 mg tablet 25 mg PO DAILY Qty: 10 0RF oxycodone-acetaminophen [Percocet] 5-325 mg tablet 1 tab PO Q6H PRN (Reason: pain) 7 Days Qty: 20 0RF naproxen [naproxen] 500 mg tablet 500 mg PO BID PRN PRN (Reason: Pain) Qty: 30 1RF ondansetron 4 mg tablet,disintegrating 4 mg PO Q6H Qty: 30 0RF Primary Care Provider: Care Physician,No Primary Referrals: Care Physician,No Primary [Primary Care Provider] - Activity Restrictions/Additional Instructions: Please eat a bland diet for the next 48 hours. Tomorrow brought anything that he can see through. Make sure that you get enough electrolytes. Please return here for worsening symptoms. You will not feel 100% in the next 24 to 48 hours however you need to keep improving. Please return for any worsening symptoms Disposition Disposition: Home, Self Care
[2023-03-13] MEDS: 0.9% Normal Saline 1,000 ML 1000 ML IV (16:02)
[2023-03-13] MEDS: Ondansetron 4 MG/2 ML Vial IV ×2 (16:02→18:09)
[2023-03-13 16:21] LABS: Absolute Neutrophil Count 6.4 X10^3/uL (2.0-7.7); Basophil# 0.06 X10^3/uL; Basophil% 0.7 % (0-1); Eosinophil# 0.08 X10^3/uL; Eosinophils% 0.9 % (0-5); Hematocrit 35.8 % (37-47); Hemoglobin 11.5 g/dL (12.0-15.0); Lymphocyte % 17.7 % (19-41); Mean Corp Hgb Conc 32.1 g/dL (32-36); Mean Corpuscular Hgb 27.8 pg (27.0-32.0); Mean Corpuscular Volume 86.5 fL (81-99); Mean Platelet Vol. 9.2 fl (6.2-12.0); Monocyte# 0.48 X10^3/uL; Monocyte% 5.3 % (0-10); NRBC Flagged by Analyzer 0.2 % (0-5); Neutrophil # 6.44 X10^3/uL (2.7-7.7); Platelet Count 395 K/mm3 (150-450); RBC Distribution Width CV 13.4 % (11.6-14.6); RBC Distribution Width SD 41.7 fl (35.1-43.9); Red Blood Count 4.14 M/mm3 (4.2-5.4); White Blood Count 9.1 K/mm3 (4.4-11.0)
[2023-03-13 16:34] LABS: ALB/GLOB Ratio 0.7 RATIO (0.9-2.4); AST(SGOT) 33 U/L (15-37); Alanine Aminotransfer ALT/SGPT 53 U/L (13-56); Albumin, Serum 2.9 g/dL (3.2-5.0); Alkaline Phosphatase 110 U/L (45-117); Anion Gap 10 (5-15); BUN 10 mg/dL (7-18); BUN/Creat Ratio 14.3 RATIO (10-20); Calcium,Total 9.4 mg/dL (8.5-10.1); Chloride 105 mmol/L (98-107); EST Glomerular Filtration Rate 109 mL/min (>60); Est Glom Filt Rate - Afr Amer 132 mL/min (>60); Estimated Creatinine Clearance 107.01 ml/min; Globulin 4.4 g/dL (2.2-4.2); Glucose 79 mg/dL (74-106); Lipase 28 U/L (13-75); Potassium 3.8 mmol/L (3.5-5.1); Protein, Total 7.3 g/dL (6.4-8.2); Sodium Level 138 mmol/L (136-145)
[2023-03-13] MEDS: 0.9% Normal Saline 1,000 ML 999 ML IV (16:40)
[2023-03-13] MEDS: proMETHazine 25 MG/ML Syringe 12.5 MG IM (16:46)
[2023-03-13 17:21] VITALS: BP 126/78; PULSE 64; RESP 16; O2SAT 100
--- NOTE | 2023-03-13 17:58 | RAD_ITS ---
STUDY: X-RAY - ACUTE ABDOMINAL SERIES REASON FOR EXAM: Female, 22 years old. Pain TECHNIQUE: Single view of the chest. Supine, view(s) of the abdomen were obtained. COMPARISON: None. FINDINGS: The lungs are clear and expanded. Normal size heart. Normal mediastinum and rafaela. Normal visualized pulmonary arteries. Normal visualized aortic arch and descending thoracic aorta. There is a non-specific bowel gas pattern. The soft tissue structures of the abdomen and pelvis are unremarkable. Normal visualized osseous structures. RAD/Acute Abdomen Inc Chest IMPRESSION: Normal x-ray examination of the chest, abdomen, and pelvis. Electronically Signed: Leroy Fitch MD at 18:14 EDT ,
[2023-03-13] MEDS: Metoclopramide 10 MG/2 ML Vial 5 MG IV (18:09)
[2023-03-13 19:02] LABS: Bacteria 0 SEEN /hpf (None Seen); Mucous, Urine 0 SEEN /hpf (<or=2+); Red Blood Cells-Urine 0 SEEN /hpf (0-5)
[2023-03-13 19:03] LABS: Color, Urine Yellow (Yellow); Glucose, Dipstick Normal (Normal); Leukocyte Esterase-Dipstick 25 /ul (Negative); Nitrite-Dipstick Negative (Negative); Occult Blood-Urine 250 /ul (Negative); Protein-Dipstick 30 mg/dl (Negative); Specific Gravity, Urine 1.015 (1.002-1.030); Urine Bilirubin Dipstick Negative (Negative); Urine Clarity Sl. Cloudy (Clear); Urine Urobilinogen Normal (Normal)
[2023-03-13 19:27] VITALS: BP 141/78; PULSE 60; RESP 18; TEMP 37; O2SAT 100
[2023-03-13 19:32] LABS: Ketone-Dipstick 150 mg/dl (Negative); Squamous Epithelial Cells - UA 0-5 SEEN /hpf (5-10); White Blood Cells 0-5 SEEN /hpf (0-5)
== END 2023-03-13 21:11 | disposition home or self-care (01) ==
PROVIDERS: Nurse Practitioner; Emergency Provider Emergency Medicine; Visit Provider Emergency Medicine
DX: R11.2 Nausea with vomiting, unspecified (principal); Z87.891 Personal history of nicotine dependence; R19.7 Diarrhea, unspecified; E86.0 Dehydration
CPT/HCPCS: 74022; 80053; 81001; 83690; 85025; 96361; 96372; 96374; 96375; 96376; 99282; J7030; J2405

== ENCOUNTER → 2024-07-14 | Outpatient (CLI) | payer OTHER, SELFPAY ==
[2024-07-25 14:40] LABS: HPV Reflexed? NOT INDICATED
== END | disposition home or self-care (01) ==
LOC: LABSPEC 11:39
PROVIDERS: Referring Provider Advanced Practice Midwife; Visit Provider Advanced Practice Midwife
DX: Z12.4 Encounter for screening for malignant neoplasm of cervix (principal); R87.620 Atypical squamous cells of undetermined significance on cytologic smear of vagina (ASC-US); R87.811 Vaginal high risk human papillomavirus (HPV) DNA test positive
CPT/HCPCS: 88175; G0145

== ENCOUNTER → 2025-03-23 | Outpatient (CLI) | payer OTHER, SELFPAY ==
[2025-03-23 12:18] LABS: Hematocrit 37.6 % (37-47); Hemoglobin 12.3 g/dL (12.0-15.0); Immature Granulocytes Count 0.020 X10^3/uL (0.0-0.0); Mean Corp Hgb Conc 32.7 g/dL (32-36); Mean Corpuscular Volume 82.8 fL (81-99); Mean Platelet Vol. 8.9 fl (6.2-12.0); NRBC Flagged by Analyzer 0 % (0-5); Platelet Count 307 K/mm3 (150-450); RBC Distribution Width CV 13.2 % (11.6-14.6); RBC Distribution Width SD 39.3 fl (35.1-43.9); Red Blood Count 4.54 M/mm3 (4.2-5.4); White Blood Count 6.5 K/mm3 (4.4-11.0)
[2025-03-23 13:14] LABS: AST(SGOT) 23 U/L (<=31); Alanine Aminotransfer ALT/SGPT 17 U/L (<=34); Albumin, Serum 4.3 g/dL (3.5-5.0); Alkaline Phosphatase 129 U/L (35-104); Anion Gap 12 (5-15); BUN 8 mg/dL (4-19); BUN/Creat Ratio 12.1 RATIO (10-20); Calcium,Total 9.5 mg/dL (7.6-11.0); Carbon Dioxide 22.3 mmol/L (21.0-32.0); Chloride 105 mmol/L (98-108); Ferritin 18 ng/mL (22-378); Globulin 3.0 g/dL (2.2-4.2); Glucose 92 mg/dL (70-99); Potassium 3.9 mmol/L (3.3-5.1)
[2025-03-23 13:32] LABS: hCG Titer Quant., Serum 148 mIU/mL (<9 non-preg)
[2025-03-23 14:15] LABS: Iron 105 ug/dL (50-170); Iron Binding Capacity,Total 431 ug/dL (250-450); Iron Binding Capacity,Unsat 326 ug/dL (228-428); Magnesium 1.9 mg/dL (1.5-2.2)
== END | disposition home or self-care (01) ==
PROVIDERS: Obstetrics & Gynecology; Physician Assistant Medical; Visit Provider Nurse Practitioner Women's Health
DX: Z00.00 Encounter for general adult medical examination without abnormal findings (principal); O20.9 Hemorrhage in early pregnancy, unspecified; F41.1 Generalized anxiety disorder; F33.0 Major depressive disorder, recurrent, mild; R00.2 Palpitations; Z86.39 Personal history of other endocrine, nutritional and metabolic disease; O99.340 Other mental disorders complicating pregnancy, unspecified trimester; Z3A.00 Weeks of gestation of pregnancy not specified
CPT/HCPCS: 36415; 80053; 82728; 83540; 83550; 83735; 84439; 84443; 84702; 85025

== ENCOUNTER → 2025-03-25 | Outpatient (CLI) | payer OTHER, SELFPAY ==
--- OUTSIDE RECORDS SUMMARY | 2025-03-25 11:39 | XMS RPT_ITS | CCD ---
Author Organization [facility] Care Team Providers Care E Merchant Name Role Phone ARTIS, LLOYD Unavailable Unavailable SELF, SELF Unavailable Unavailable ARTIS, LLOYD Unavailable Unavailable ARTIS, LLOYD Unavailable Unavailable ARTIS, LLOYD Unavailable Unavailable ARTIS, LLOYD Unavailable Unavailable Luis Lindquist Unavailable Unavailable Luis Lindquist Unavailable Unavailable LUIS LINDQUIST Primary Care Unavailable Jim Seay Unavailable Unavailable Jim Seay Unavailable Unavailable Luis Lindquist MD Primary Care Provider Tiffanie Luis Woodruff MD Primary Care Provider [phone] JIM SEAY FLORA Referring Unavailab LUIS Mane Primary Care Unavailable SHANTA OCONNELL Attending Unavailable Jim Seay Unavailable Unavailable Unavailable Geena EXECUTIVE ASSOCIATE, LOBO-C Jim Referring Provider [phone] Dr. Carine Romero Attending Provider [phone] Care Physician, No Primary Primary Care Provider Unavailable DO Rosendo Villa Attending Unavailab Ms. Jim Luo Flora Primary Care Unava ilable Care Physician, No Primary Referring Provider Un available TONJA Hinkle Attending Provider Svetlana EXECUTIVE ASSOCIATE, EXECUTIVE ASSOCIATE-C Hawa Attending Provider Care Physician, No Primary Primary Care Provider Unavailable Care Physician, No Primary Referring Provider Un available TONJA Hinkle Attending Provider Svetlana EXECUTIVE ASSOCIATE, EXECUTIVE ASSOCIATE-C Hawa Attending Provider [phone] Dr. Carine Romero Attending Provider Dr. Fatmata Arteaga Attending Provider HINKLE, ELMER J Referring Unavailable NO PRIMARY CARE, MD Primary Care Unavailable FARRAH MCKEON Attending Unavailable GALDINO DOMINGUEZ Attending Unavailable NO PRIMARY CARE, MD Primary Care Unavailable HINKLE, ELMER J Referring Unavailable GALDINO DOMINGUEZ Attending Unavailable NO PRIMARY CARE, MD Primary Care Unavailable HINKLE, ELMER J Referring Unavailable NO PRIMARY CARE, MD Primary Care Unavailable SHANKAR BAL Attending Unavailable HINKLE, ELMER J Referring Unavailable NO PRIMARY CARE, MD Primary Care Unavailable SHANKAR BAL F Attending Unavailable HINKLE, ELMER J Referring Unavailable NO PRIMARY CARE, MD Primary Care Unavailable SNEHAL TUTTLE Attending Unavailable HINKLE, ELMER J Referring Unavailable NO PRIMARY CARE, MD Primary Care Unavailable ADITHYA WEEMS Attending Unavailable HINKLE, ELMER J Referring Unavailable NO PRIMARY CARE, MD Primary Care Unavailable SHANKAR BAL F Attending Unavailable HINKLE, ELMER J Referring Unavailable NO PRIMARY CARE, MD Primary Care Unavailable SHANKAR BAL F Attending Unavailable NIKOLE ELMER J Referring Unavailable NO PRIMARY CARE, MD Primary Care Unavailable GALDINO DOMINGUEZ Attending Unavailable HINKLE, ELMER J Referring Unavailable NO PRIMARY CARE, MD Primary Care Unavailable BALAIME MARCHICE F Attending Unavailable HINKLE, ELMER J Referring Unavailable HINKLE, ELMER J Referring Unavailable NO PRIMARY CARE, MD Primary Care Unavailable SHANKAR BAL F Attending Unavailable HINKLE, ELMER J Referring Unavailable NO PRIMARY CARE, MD Primary Care Unavailable FARRAH MCKEON Attending Unavailable Care Physician, No Primary Primary Care Provider Unavailable Care Physician, No Primary Referring Provider Un available TONJA Hinkle Attending Provider [phone] Svetlana EXECUTIVE ASSOCIATE, EXECUTIVE ASSOCIATE-C Hawa Attending Provider [phone] Chelsey Hess Attending Provider Unavailable Dr. Fatmata Arteaga Admit Provider [phone] Dr. Fatmata Arteaga Referring Provider [phone] Dr. Fatmata Arteaga Other Provider TONJA Hawkins Attending Provider [phone] Care Physician, No Primary Primary Care Provider Unavailable Care Physician, No Primary Referring Provider Un available TONJA Hinkle Attending Provider [phone] Ashvin EXECUTIVE ASSOCIATE, EXECUTIVE ASSOCIATE-Conner Haynes Attending Provider NO, PHYSICIAN Primary Care Unavailable NIURKA GALVIN Attending Unavailable Raisa Hawkins Attending Unavailable Care Physician, No Primary Referring Unava ilable Care Physician, No Primary Primary Care Unava ilable Care Physician, No Primary Primary Care Unava ilable Raisa Hawkins Referring Unavailable Raisa Hawkins Attending Unavailable Jim Ovalles Primary Care Provid er INGRID PEREZ Referring Unavailable JIM SEAY Primary Care Unavailable Ursula Rosas PA-C Primary Care Provider Allergies Allergy Classification Reported Allergen(s) Allergy Type Date of Onset Reaction(s) Facility (1 source) ALLERGIES NOT ON FILE; Translations: [ALLERGIES NOT ON FILE] Propensity to adverse reactions (disorder) [facility] 2 Repository Medications Current Medications Medication Drug Class(es) Dates Sig (Normalized) Sig (Original) [id number] 200 actuat albuterol 0.09 mg/actuat metered dose inhaler (2 sources) beta2-Adrenergic Agonist Start: 05-03-2018 albuterol 90 mcg/actuation inhaler Inhale 2 puffs. 0 05/03/2018 Active cetirizine hydrochloride 10 mg oral capsule (18 sources) Histamine-1 Receptor Antagonist Start: 08-01-2022 take 1 capsule by mouth once daily Cetirizine (Zyrtec) 10 mg capsule Active 10 MG PO DAILY August 01, 2022 1:00am Start: 05-03-2018 cetirizine (ZY RTEC) 10 MG tablet Take 10 mg by mouth. 0 05/03/2018 Active Ethinyl Estradiol / Levonorgestrel (5 sources) Progestin, Estrogen, Progestin-containing Intrauterine Device Start: 02-07-2021 take 1 tablet by mouth once daily L norgest/e.estradioL-e.estrad (Ashlyna) 0.15 mg-30 mcg (84)/10 mcg (7) tablet take 1 tablet by mouth once daily . 91 tablet 4 02/07/2021 Active Start: 12-21-2019 L norgest/e.es tradioL-e.estrad (Camrese) 0.15 mg-30 mcg (84)/10 mcg (7) tablet 1 pill daily . 91 tablet 4 12/21/2019 Active take 1 tablet by dahiana th once daily Daysee 0.15-0.03 &0.01 MG Oral Tablet TA KE 1 TABLET DAILY. Refills: 0 Active 91 Tablet Pack ferrous sulfate 325 mg oral tablet (2 sources) Start: 05-03-2018 ferrous sulfat e 325 (65 FE) MG tablet Take by mouth. 0 05/03/2018 Active pantoprazole 40 mg oral granules (2 sources) Proton Pump Inhibitor Start: 05-03-2018 pantoprazole (PROTONIX) 40 mg GrPS Take 40 mg by mouth. 0 05/03/2018 Active sertraline 50 mg oral tablet (7 sources) Serotonin Reuptake Inhibitor Start: 03-20-2023 take 1 tablet by mouth once daily Sertraline (Zoloft) 50 mg tablet Active 50 MG PO DAILY March 20, 2023 12:00am Start: 03-11-2023 take 1 tablet by dahiana th once daily Sertraline (Zoloft) 25 mg tablet Active 25 MG PO DAILY March 11, 2023 12:00am Start: 12-21-2019 take 0.5 tablet by [facility] every other week Sertraline HCl - 50 MG Oral Tablet Take 1/2 tablet dailyfor 2 weeks to wean off Quantity: 7 Refills: 0 Jim Ovalles Start : 21-Dec-2019 Active Start: 05-03-2018 sertraline (ZO LOFT) 100 MG tablet Take 100 mg by mouth. 0 05/03/2018 Active Completed/Discontinued Medications Medication Drug Class(es) Dates Sig (Normalized) Sig (Original) acetaminophen 325 mg / oxyCODONE hydrochloride 5 mg oral tablet (3 sources) Opioid Agonist Start: 03-06-2023 End: 03-20-2023 take 1 tablet by mouth every six hours Oxycodone-Acetamino phen (Percocet) 5-325 mg tablet Discontinued 1 TABLET PO EVERY 6 HOURS 02 04March 06, 2023 March 20, 2023 3:41pm 12 hr buPROPion hydrochloride 100 mg extended release oral tablet (3 sources) Aminoketone Start: 03-19-2020 take 1 tablet by mouth once daily buPROPion HCl ER (SR) 100 MG Oral Tablet Extended Release 12 Hour TAKE 1 TABLET DAILY. Quantity: 30 Refills: 5 Jim Ovalles Start : 19-Mar-2020 Active Start: 03-19-2020 take 1 tablet by dahiana th twice daily buPROPion HCl ER (SR) 100 MG Oral Tablet Extended Release 12 Hour TAKE 1 TABLET TWICE DAILY. Quantity: 60 Refills: 1 Jim Ovalles Start : 19-Mar-2020 Active Start: 12-21-2019 take 1 tablet by dahiana th once daily buPROPion HCl ER (XL) 150 MG Oral Tablet Extended Release 24 Hour TAKE 1 TABLET DAILY. Quantity: 30 Refills: 5 Jim Ovalles Start : 21-Dec-2019 Active busPIRone hydrochloride 5 mg oral tablet (1 source) Start: 12-21-2019 take 1 tablet by mouth twice daily as needed for anxiety busPIRone HCl - 5 MG Oral Tablet TAKE 1 TABLET Twice daily PRN for anxiety Quantity: 60 Refills: 1 Geena DURANNKatieJACQUELINMarciaJim Start : 21-Dec-2019 Active Start: 12-21-2019 take 1 tablet by dahiana th twice daily as needed for anxiety busPIRone HCl - 5 MG Oral Tablet TAKE 1 TABLET Twice daily PRN for anxiety Quantity: 60 Refills: 1 Jim Ovalles Start : 21-Dec-2019 Active celecoxib 100 mg oral capsule (2 sources) Nonsteroidal Anti-inflammatory Drug Start: 01-09-2021 End: 10-03-2021 take 1 capsule by mouth once daily at mealtime Celecoxib 100 MG Oral Capsule TAKE 1 CAPSULE Daily take with food Quantity: 30 Refills: 5 Ordered: 09-Jan-2021 Marcia Ovallesinda Start : 09-Jan-2021 End : 03-Oct-2021 Complete Daysee 0.15-0.03 &0.01 MG Oral Tablet (2 sources) take 1 tablet by mouth once daily Daysee 0.15-0.03 &0.01 MG Oral Tablet TAKE 1 TABLET DAILY. Quantity: 0 Refills: 0 Ordered: 03-Oct-2021 DO Active take 1 tablet by mouth once lexi y Daysee 0.15-0.03 &0.01 MG Oral Tablet TAKE 1 TABLET DAILY. Quantity: 0 Refills: 0 Ordered: 21-Dec-2019 DO Active escitalopram 5 mg oral tablet (2 sources) Serotonin Reuptake Inhibitor Start: 03-19-2020 take 1 tablet by mouth once daily Escitalopram Oxalate 5 MG Oral Tablet TAKE 1 TABLET BY MOUTH EVERY DAY Quantity: 30 Refills: 5 Jim Ovalles Start : 19-Mar-2020 Active fluticasone propionate 0.05 mg/actuat metered dose nasal spray (1 source) Corticosteroid Start: 10-03-2021 take 1 spray(s) nasal route twice daily Fluticasone Propionate 50 MCG/ACT Nasal Suspension USE 1 SPRAY IN EACH NOSTRIL TWICE DAILY. Quantity: 1 Refills: 0 Ordered: 03-Oct-2021 [place] Start : 03-Oct-2021 Active hydrOXYzine hydrochloride 25 mg oral tablet (4 sources) Antihistamine Start: 10-03-2021 take 1 tablet by mouth at bedtime as needed for anxiety hydrOXYzine HCl - 25 MG Oral Tablet Take one tablet at bedtime as needed for anxiety Quantity: 30 Refills: 0 Ordered: 03-Oct-2021e Start : 03-Oct-2021 Active Mv-Mins 75-Iuxo-Quphz No.1-Dha (Pnv-Whiting) 28-1-300 mg capsule (7 sources) Start: 08-01-2022 End: 03-20-2023 take 1 capsule by mouth once daily Mv-Mins 70-Yxqy-Yzmdd No.1-Dha (Pnv-Whiting) 28-1-300 mg capsule Discontinued 1 CAP PO DAILY August 01, 2022 1:00am March 20, 2023 3:40pm Start: 08-01-2022 take 1 capsule by [facility] once daily Mv-Mins 16-Rufs-Niyok No.1-Dha (Pnv-Whiting) 28-1-300 mg capsule Active 1 CAP PO DAILY August 01, 2022 1:00am Start: 08-01-2022 take 1 capsule by mouth once M v-Mins 47-Tduz-Hequd No.1-Dha (Pnv-Whiting) 28-1-300 mg capsule Active CAP PO August 01, 2022 1:00am Start: 08-01-2022 take 1 capsule by mouth once M v-Mins 43-Sijt-Upwny No.1-Dha (Pnv-Whiting) 28-1-300 mg capsule Active CAP PO August 01, 2022 12:00am naproxen 500 mg oral tablet (3 sources) Nonsteroidal Anti-inflammatory Drug Start: 03-06-2023 End: 03-20-2023 take 500 mg by mouth twice daily as needed Naproxen Discontinued 500 MG PO TWICE DAILY NEEDED March 06, 2023 12:00am March 20, 2023 3:41pm ondansetron 4 mg disintegrating oral tablet (2 sources) Serotonin-3 Receptor Antagonist Start: 03-13-2023 End: 03-20-2023 take 4 mg by mouth every six hours Ondansetron Discontinued 4 MG PO EVERY 6 HOURS March 13, 2023 12:00am March 20, 2023 3:41pm promethazine hydrochloride 25 mg oral tablet (2 sources) Phenothiazine Start: 03-13-2023 End: 03-20-2023 take 25 mg by mouth three times daily Promethazine Discontinued 25 MG PO THREE TIMES A DAY March 13, 2023 12:00am March 20, 2023 3:41pm Problems Active Problems Problem Classification Problem Date Documented Date Episodic/Chronic Adjustment disorders (8 sources) Adjustment disorder with mixed emotional features; Translations: [Adjustment disorder with mixed anxiety and depressed mood] Chronic Administrative/social admission (1 source) First encounter by subject; Translations: [Persons encountering health services in other specified circumstances] 03-22-2025 Episodic Anxiety disorders (20 sources) Anxiety; Translations: [Anxiety disorder, unspecified] Onset: 03-20-2025 Chronic Cancer of other female genital organs (20 sources) Atypical squamous cells of undetermined significance on vaginal Papanicolaou smear; Translations: [Atypical squamous cells of undetermined significance on cytologic smear of vagina (ASC-US)] Onset: 07-14-2024 10-07-2022 Episodic Cardiac dysrhythmias (20 sources) Tachycardia, unspecified; Translations: [Palpitations] Onset: 09-03-2022 02-10-2023 Episodic Conditions associated with dizziness or vertigo (1 source) Dizziness and giddiness; Translations: [Dizziness and giddiness] Onset: 09-03-2022 Episodic Diabetes or abnormal glucose tolerance complicating ; childbirth; or the puerperium (20 sources) Impaired glucose tolerance in ; Translations: [Abnormal glucose complicating ] 12-15-2022 Episodic Genitourinary symptoms and ill-defined conditions (3 sources) Urinary incontinence; Translations: [Urinary incontinence, unspecified] Chronic Hemorrhage during ; abruptio placenta; placenta previa (18 sources) Placenta previa; Translations: [Complete placenta previa NOS or without hemorrhage, unspecified trimester] 11-04-2022 Episodic Immunizations and screening for infectious disease (8 sources) Patient encounter status; Translations: [Other specified vaccination] 03-06-2023 Episodic Malaise and fatigue (1 source) Fatigue; Translations: [Other fatigue] 03-22-2025 Episodic Miscellaneous mental health disorders (6 sources) Severe depression; Translations: [ depression] Onset: 07-14-2024 03-11-2023 Episodic Mood disorders (2 sources) Recurrent major depressive episodes, mild ; Translations: [Major depressive disorder, recurrent, mild] Onset: 01-25-2016 03-22-2025 Chronic Nausea and vomiting (3 sources) Nausea and vomiting; Translations: [Nausea with vomiting, unspecified] 03-13-2023 Episodic Other circulatory disease (1 source) Orthostatic hypotension; Translations: [Orthostatic hypotension] Onset: 09-03-2022 Episodic Other complications of ; puerperium affecting management of mother (3 sources) Deliveries by ; Translations: [Encounter for delivery without indication] 03-06-2023 Episodic Other complications of ; puerperium affecting management of mother (1 source) Encounter for delivery without indication; Translations: [ delivery, without mention of indication, delivered, with or without mention of antepartum condition] 03-08-2023 Episodic Other complications of (7 sources) High risk ; Translations: [Supervision of high risk , unspecified, unspecified trimester] 10-07-2022 Episodic Other complications of (20 sources) Supervision of high risk , unspecified, unspecified trimester; Translations: [Supervision of unspecified high-risk ] Episodic Other complications of (1 source) Diseases of the circulatory system complicating , first trimester; Translations: [Diseases of the circ sys comp , first trimester] Onset: 09-03-2022 Episodic Other complications of (1 source) Unspecified infection of urinary tract in , first trimester; Translations: [Unsp infct of urinary tract in , first trimester] Onset: 09-03-2022 Episodic Other complications of (1 source) Other specified related conditions, first trimester; Translations: [Oth related conditions, first trimester] Onset: 09-03-2022 Episodic Other complications of (3 sources) Variable heart decelerations; Translations: [Maternal care for abnormalities of the heart rate or rhythm, unspecified trimester, not applicable or unspecified] 03-06-2023 Episodic Other complications of (3 sources) Poor growth affecting management; Translations: [Maternal care for other known or suspected poor growth, unspecified trimester, not applicable or unspecified] 03-06-2023 Episodic Other complications of (20 sources) Maternal care for other known or suspected poor growth, unspecified trimester, not applicable or unspecified; Translations: [Poor growth, affecting management of mother, unspecified as to episode of care or not applicable] 12-22-2022 Episodic Other complications of (3 sources) Maternal care for abnormalities of the heart rate or rhythm, unspecified trimester, not applicable or unspecified; Translations: [Abnormality in heart rate or rhythm, antepartum condition or complication] 03-08-2023 Episodic Other congenital anomalies (6 sources) Congenital fusion of spine; 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), congenital] Onset: 03-20-2025 03-20-2025 Chronic Other non-traumatic joint disorders (8 sources) Pain in wrist; Translations: [Pain in right wrist] Onset: 03-20-2025 Episodic Other non-traumatic joint disorders (3 sources) Arthralgia of the ankle and/or foot; Translations: [Pain in left ankle and joints of left foot] Onset: 08-29-2024 08-29-2024 Episodic Other non-traumatic joint disorders (1 source) Pain in left ankle and joints of left foot; Translations: [Pain in left ankle and joints of left foot] Onset: 08-29-2024 Episodic Other nutritional; endocrine; and metabolic disorders (1 source) Obesity caused by energy imbalance; Translations: [Class 1 obesity due to excess calories without serious comorbidity with body mass index (BMI) of 32.0 to 32.9 in adult] 03-22-2025 Chronic Other nutritional; endocrine; and metabolic disorders (2 sources) Body mass index 25-29 - overweight; Translations: [Body Mass Index 27.0-27.9, adult] Episodic Other nutritional; endocrine; and metabolic disorders (2 sources) History of iron deficiency; Translations: [Personal history of other endocrine, nutritional and metabolic disease] Onset: 09-30-2018 03-22-2025 Episodic Other and delivery including normal (20 sources) ; Translations: [Encounter for supervision of normal , unspecified, unspecified trimester] Episodic Other screening for suspected conditions (not mental disorders or infectious disease) (1 source) Encounter for screening for malignant neoplasm of cervix; Translations: [Encounter for screening for malignant neoplasm of cervix] Onset: 08-03-2024 Episodic Other upper respiratory disease (8 sources) Allergic rhinitis; Translations: [Allergic rhinitis, cause unspecified] Chronic Other upper respiratory disease (9 sources) Seasonal allergy; Translations: [Other seasonal allergic rhinitis] Onset: 03-22-2025 08-01-2022 Chronic Other upper respiratory disease (20 sources) Other seasonal allergic rhinitis; Translations: [Allergic rhinitis, cause unspecified] Chronic Residual codes; unclassified (5 sources) History finding; Translations: [Other specified conditions influencing health status] Episodic Residual codes; unclassified (1 source) 13 weeks gestation of ; Translations: [13 weeks gestation of ] Onset: 09-03-2022 Episodic Sexually transmitted infections (not HIV or hepatitis) (1 source) Vaginal high risk human papillomavirus (HPV) DNA test positive; Translations: [Vaginal high risk human papillomavirus (HPV) DNA test positive] Onset: 07-14-2024 Episodic Spondylosis; intervertebral disc disorders; other back problems (12 sources) Lumbar radiculitis; Translations: [Thoracic or lumbosacral neuritis or radiculitis, unspecified] Onset: 03-20-2025 03-20-2025 Episodic Sprains and strains (2 sources) Sprain of unspecified ligament of left ankle, initial encounter; Translations: [Sprain of unspecified ligament of left ankle, initial encounter] Onset: 03-20-2024 Episodic Unclassified (1 source) Contact with and (suspected) exposure to COVID-19; Translations: [Contact with and (suspected) exposure to COVID-19] Onset: 09-03-2022 Urinary tract infections (1 source) Urinary tract infection, site not specified; Translations: [Urinary tract infection, site not specified] Onset: 09-03-2022 Episodic Past or Other Problems Problem Classification Problem Date Documented Da te Episodic/Chronic Influenza (2 sources) Influenza due to other identified influenza virus with other respiratory manifestations; Translations: [Influenza due to other identified influenza virus with other respiratory manifestations] Onset: 09-06-2017 Episodic Other upper respiratory infections (4 sources) Acute upper respiratory infection, unspecified; Translations: [Acute pharyngitis, unspecified] Onset: 09-06-2017 Episodic Unclassified (2 sources) History finding; Translations: [No pertinent past medical history] Unclassified (1 source) Onset: 03-22-2025 03-22-2025 Viral infection (9 sources) Other viral agents as the cause of diseases classified elsewhere; Translations: [Genital warts] Onset: 09-06-2017 06-23-2019 Episodic NEGATED: Highlighted row has not occurred!Residual codes; unclassified (4 sources) Disease Episodic Results Test Name Value Interpretation Reference Range Facility XR ANKLE LEFT 3+ VIEWSon XR ANKLE LEFT 3+ VIEWS Interpreted By: Avelino Gonsalez, STUDY: XR ANKLE LEFT 3+ VIEWS; ; 08/29/2024 3:53 pm INDICATION: Signs/Symptoms:LEFT ANKLE PAIN. ,M25.572 Pain in left ankle and joints of left foot COMPARISON: None. ACCESSION NUMBER(S): [id number] ORDERING CLINICIAN: INGRID PEREZ FINDINGS: Left ankle, three views There is no fracture. There is no dislocation. There are no degenerative changes. There is no lytic or sclerotic lesion. There is mild bimalleolar soft tissue edema IMPRESSION: Mild soft tissue edema. No osseous abnormality seen MACRO: None Signed by: Avelino Martin 08/30/2024 5:51 PM Dictation workstation: [id number] [facility] Comment on above: Order Comment: STAND ING PAP I-G w/rfx hrHPV-Aptimaon 07-21-2024 ADEQ Comment Normal . [facility] Comment on above: Order Comment: Speci men Comment: [id number] Specimen Comment: Source.............Cervix;Endocervix Specimen Comment: LMP / Prev Treat...[id number] Specimen Comment: No. of containers..01 ThinPrep Vial Result Comment: Sati sfactory for evaluation. Endocervical and/or squamous metaplastic cells (endocervical component) are present. Performed By: #### L 7400.0353 #### [facility] [address] [place], [place], [id number] COMM . Normal . [facility] Comment on above: Order Comment: Speci men Comment: [id number] Specimen Comment: Source.............Cervix;Endocervix Specimen Comment: LMP / Prev Treat...[id number] Specimen Comment: No. of containers..01 ThinPrep Vial Performed By: #### L 7400.0353 #### [facility] [address] [place], [place], [id number] COMMENT Comment Normal . [facility] Comment on above: Order Comment: Speci men Comment: [id number] Specimen Comment: Source.............Cervix;Endocervix Specimen Comment: LMP / Prev Treat...[id number] Specimen Comment: No. of containers..01 ThinPrep Vial Result Comment: This liquid based ThinPrep(R) pap test was screened with the use of an image guided system. Performed By: #### L 7400.0353 #### [facility] [address] [place], [place], [id number] DIAG Comment Normal . [facility] Comment on above: Order Comment: Speci men Comment: [id number] Specimen Comment: Source.............Cervix;Endocervix Specimen Comment: LMP / Prev Treat...[id number] Specimen Comment: No. of containers..01 ThinPrep Vial Result Comment: NEGA TIVE FOR INTRAEPITHELIAL LESION OR MALIGNANCY. Performed By: #### L 7400.0353 #### [facility] [address] [place], [place], [id number] HPV RFLX Comment Normal . [facility] Comment on above: Order Comment: Speci men Comment: [id number] Specimen Comment: Source.............Cervix;Endocervix Specimen Comment: LMP / Prev Treat...[id number] Specimen Comment: No. of containers..01 ThinPrep Vial Result Comment: The HPV DNA reflex criteria were not met with this specimen result therefore, no HPV testing was performed. Performed at: [address] [id number] Electron Gun Inspector: Elsa Waller MD, Phone: [phone] Performed By: #### L 7400.0353 #### [facility] [address] [place], [place], [id number] PAPSMR Comment Normal . [facility] Comment on above: Order Comment: Speci men Comment: [id number] Specimen Comment: Source.............Cervix;Endocervix Specimen Comment: LMP / Prev Treat...[id number] Specimen Comment: No. of containers..01 ThinPrep Vial Result Comment: The Pap smear is a screening test designed to aid in the detection of premalignant and malignant conditions of the uterine cervix. It is not a diagnostic procedure and should not be used as the sole means of detecting cervical cancer. Both false-positive and false-negative reports do occur. Performed By: #### L 7400.0353 #### [facility] [address] [place], [place], [id number] PERFORM Comment Normal . [facility] Comment on above: Order Comment: Speci men Comment: [id number] Specimen Comment: Source.............Cervix;Endocervix Specimen Comment: LMP / Prev Treat...STF=[id number] Specimen Comment: No. of containers..01 ThinPrep Vial Result Comment: Scarlett Montague Director Safety Council Performed By: #### L [id number] #### [facility] [address] [place], [address] Grinding Room Supervisor Office Visit Reporton 07-14-2024 Grinding Room Supervisor Office Visit Report [facility] [address], [address] [place] [address] OFFICE VISIT Date of Service: 07/14/24 MR#: [id number] Acct: [id number] Name: MARKEL LAN Rep #: [id number] : 2000 Provider: TONJA Adams ams Age/Sex: 23/F Location: [facility] Status: Signed Intake Vital Signs 04/30/23 15:03 07/14/24 09:38 07/14/24 09:40 Height 5 ft 4 in 5 ft 4 in 5 ft 4 in Weight: 184 lb BMI 31.6 BP 121/81 H Intake Visit 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: No Is patient in pain?: No Allergies No Known Allergies Allergy (Verified 07/14/24 09:38) Medications ???Medication ???Instructions ???Recorded ???Confirmed ???Type cetirizine 10 mg capsule (Zyrtec) 10 mg PO DAILY PRN allergies 08/01/22 07/14/24 History sertraline 50 mg tablet 50 mg PO DAILY #30 TABLETS 07/14/24 07/14/24 Rx Is last menstrual period known: Yes Last Menstrual Period: 07/06/24 Post menopausal: No Patient : No : No PFSH Medical History (Updated 07/14/24 @ 10:05 by Raisa Hawkins CNM) delivery delivered Palpitations Depression Surgical History (Updated 07/14/24 @ 09:40 by Nathalie Gutierrez) [place] teeth extracted History of tonsillectomy and adenoidectomy Family History Mother Breast cancer, Onset Age: 40 not hereditary type of cancer Social History adopted: No household members: significant other housing: house current occupational status: employed 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 @ [employer] current occupational exposures/hazards: No pets and animals: Yes pets and animals: dog(s) history of recent travel: No sexually active: Yes Smoking Status: Former smoker quit date: 07/07/22 Smokeless tobacco user: other Electronic Cigarette Use: with nicotine quit status: quit date established alcohol intake: former details: socially prior to substance use type: does not use well-balanced diet: about half the time caffeine: Yes Type: carbonated beverages Number of servings: 1 eating out: 1-3 times/week during the past year weight has: remained stable what type of physical activity do you participate in: none sarwat/anglican: None seatbelt use: sometimes do you feel safe at home: Yes additional social history: BF/FOB [employer] History 1 Elective abortions Hx Para 0 Spontaneous abortions Hx # Term Pregnancies Ectopic pregnancies Hx # Pregnancies Multiple births # of living children 1 Past Pregnancies Del. Date Name GA/Weeks Outcome Route Bth Weight Infant Gen Labor Lgth Anesthesia Del Locatn Provider FOB 03/06/23 Scott 39 live - full term Male [facility] rcanthony Delivery Date: 03/06/23 Last Updated by: Chelsey Rondon IUGR IOL LTCS variable decels CatII HPI Encounter for routine gynecological examination Details: MARKEL LAN is a 23 year old who presents for annual exam.NOticing heavier bleeding with small clots for a couple days during her menses over the last 3 months. Last PAP: 2021 History of abnormal PAP: 2021 ASCUS Last mammogram: History of abnormal mammogram: Colon cancer screening: Other preventative health care screenings: no pcp Female Reproductive History Last Menstrual Period: 07/06/24 Cycle Length: 21-35 Bleeding Duration: 8 Questions: sexually active: Yes, dyspareunia: No and PCB: No Menopausal Symptoms: No hot flashes, No night sweats, No mood changes, No difficulty concentrating and No sleep problems ROS Const Constitutional: Reports system reviewed and no additional complaints, except as documented; Denies night sweats Cardio Card: Reports system reviewed and no additional complaints, except as documented Resp Resp: Reports system reviewed and no additional complaints, except as documented GI GI: Reports system reviewed and no additional complaints, except as documented : Reports system reviewed and no additional complaints, except as documented; Denies difficulty voiding, dysuria, hot flashes or urinary frequency Skin Skin/Breast: Reports system reviewed and no additional complaints, except as documented Neuro Neuro: Reports system reviewed and no additional complaints, except as documented Psych Psych: Reports system reviewed and no additional complaints, except as documented; Denies anhedonia, anxiety, depression or difficulty concentrating Exam Const General: cooperative, healthy appearing, comfortable and no acute distress Orientation: alert, awake and oriented x3 Neck Neck: normal visual inspection and full ROM Thyroid: thyroid normal Chest Breast inspection: normal inspection of the breasts and normal inspection of the (more content not included)... Normal [facility] ED Prov Noteon 03-20-2024 ED Prov Note ED PROVIDER NOTE [facility] EM[facility] NAME: Markel Lan AGE: 23 y.o. : 2000 VISIT DATE: 03/20/2024 CSN: [id number] PCP: No, Physician Chief Complaint Patient presents with Ankle Pain History provided by: Patient Ankle Pain Location: Ankle Time since incident: 2 hours Severity: Moderate Injury: yes Ankle location: L ankle Chronicity: New Worsened by: Bearing weight and activity Ineffective treatments: NSAIDs Associated symptoms: decreased ROM, stiffness, swelling and tenderness Associated symptoms: no numbness Past Medical History: Diagnosis Date Anxiety Depression GERD (gastroesophageal reflux disease) Past Surgical History: Procedure Laterality Date ADENOIDECTOMY SECTION, CLASSIC TONSILLECTOMY Family History Problem Relation Age of Onset Hypertension Maternal Grandmother Cancer Mother Breast not hereditary Social History Socioeconomic History Marital status: Single Tobacco Use Smoking status: Never Smokeless tobacco: Never Vaping Use Vaping status: Never Used Substance and Sexual Activity Alcohol use: Yes Drug use: No Sexual activity: Yes Partners: Male control/protection: Pill Previous Medications Medication Sig sertraline (ZOLOFT) 50 MG tablet Take 1 (one) tablet (50 mg total) by mouth daily . albuterol 90 mcg/actuation inhaler Inhale 2 puffs. cetirizine (ZYRTEC) 10 MG tablet Take 10 mg by mouth. L norgest/e.estradioL-e.es trad (Ashlyna) 0.15 mg-30 mcg (84)/10 mcg (7) tablet take 1 tablet by mouth once daily . [DISCONTINUED] ferrous sulfate 325 (65 FE) MG tablet Take by mouth. [DISCONTINUED] pantoprazole (PROTONIX) 40 mg GrPS Take 40 mg by mouth. No Known Allergies Review of Systems Musculoskeletal: Positive for stiffness. Patient Vitals for the past 24 hrs: BP Temp Pulse Resp SpO2 Height Weight 03/20/24 2224 122/85 98.9 degrees F (37.2 degrees C) 97 16 98 % 5' 4 81.6 kg (180 lb) Physical Exam Vitals and nursing note reviewed. Constitutional: General: She is awake. She is not in acute distress. Appearance: Normal appearance. She is well-developed. She is not toxic-appearing or diaphoretic. Eyes: Extraocular Movements: Extraocular movements intact. Comments: PER, unremarkable size Neck: Trachea: No tracheal deviation. Musculoskeletal: General: Swelling, tenderness and signs of injury present. No deformity. Cervical back: Normal range of motion. Left ankle: Swelling present. No deformity or lacerations. Tenderness present. Normal range of motion. Anterior drawer test negative. Normal pulse. Legs: Pulmonary: Effort: Pulmonary effort is normal. No respiratory distress. Neurological: General: No focal deficit present. Mental Status: She is alert. Motor: No abnormal muscle tone. Coordination: Coordination normal. Comments: Awake, alert and appropriate. Psychiatric: Mood and Affect: Mood normal. Behavior: Behavior normal. Behavior is cooperative. . Laboratory & Radiographic Imaging (if done): No results found for this visit on 03/20/24. XR Ankle Left 3+ Views (Standard) (Results Pending) XR Foot Left 3+ Views (Standard) (Results Pending) Procedures Medical Decision Making Amount and/or Complexity of Data Reviewed Radiology: ordered and independent interpretation performed. Decision-making details documented in ED Course. Details: 3 views of the left foot demonstrate no avulsion or transverse fracture of the fifth metatarsal. No bony abnormalities otherwise. Impression: Normal foot. 3 views of the left ankle demonstrate soft tissue swelling of the lateral malleolus but no bony abnormality. Joint spaces are intact. There is no fracture or dislocation. Impression: Negative ankle. The patient has been informed that they may have pre-hypertension or hypertension based on a blood pressure reading in the Emergency Department. I recommend that the patient call the primary care provider listed on their discharge instructions or a physician of their choice as soon as possible to arrange follow-up in the next 4 weeks for further evaluation of possible pre-hypertension or hypertension. . Clinical Impression: 1. Moderate ankle sprain, left, initial encounter ED Disposition ED Disposition Discharge Condition Stable Comment Markel J Lan discharged to home/self care in stable condition. Follow-up Information 1. [facility] Emergency Department. Specialty: Emergency Medicine Why: As needed, If symptoms worsen [address] [facility] [id number] Contact information for after-discharge care Follow-up information has not been specified. Discontinued Medications Disp Refills Start End ferrous sulfate 325 (65 FE) MG tablet -- -- 05/03/2018 03/20/2024 Class: Historical Med Reason for Discontinue: Error pantoprazole (PROTONIX) 40 mg GrPS -- -- 05/03/2018 03/20/2024 (more content not included)... [facility] XR ANKLE LEFT 3+ VIEWS (WADE DYER)on 03-20-2024 XR ANKLE LEFT 3+ VIEWS (STANDARD) EXAMINATION: XR FOOT LEFT 3+ VIEWS (STANDARD); XR ANKLE LEFT 3+ VIEWS (STANDARD) 03/20/2024 8:50 pm HISTORY: ORDERING SYSTEM PROVIDED HISTORY: twisted ankle; mild pain 5th [place], TECHNOLOGIST PROVIDED HISTORY: Injury/Trauma Reason for exam: fell out of camper, pain all over but more lateral Cancer History: unknown Surgery, Radiation History: unknown Encounter Type: Initial Mechanism of injury: Patient reports she was stepping out of her camper, the camper steps were folded in. She landed on her twisted ankle ORDERING SYSTEM PROVIDED DIAGNOSIS CODES: COMPARISON: None. FINDINGS: Three views of the left ankle and 3 views of the left foot were obtained. No acute fracture or dislocation is seen. The joint spaces are preserved. The ankle mortise is congruent. There is no significant left ankle joint effusion. There is soft tissue edema overlying the anterior and lateral aspects of the ankle. IMPRESSION: 1. Soft tissue edema overlying the anterior and lateral aspects of the left ankle with no acute fracture or dislocation of the left ankle or foot seen. If pain persists, repeat radiographs are recommended in 7-10 days. [facility] Workstation ID: [id number] Dictated by: WINNIE FOSTER on ThuMar 20, 2024 11:10:57 PM EDT Transcribed by: SHYANNE CA on ThuMar 20, 2024 11:12:07 PM EDT Finalized by: WINNIE FOSTER on [place] Mar 20, 2024 11:13:13 PM EDT [facility] Comment on above: Order Comment: Injur y/Trauma or Illness?:Injury/Trauma How long have you had these symptoms (acute/chronic)?:Acute Reason for exam?:fell out of camper, pain all over but more lateral History of cancer?:unknown Surgeries, chemotherapy, or radiation?:unknown Type of Exam?:Initial Mechanism of injury?:atient reports she was stepping out of her camper, the camper steps were folded in. She landed on her twisted ankle. XR FOOT LEFT 3+ VIEWS (STAND AILYN)on 03-20-2024 XR FOOT LEFT 3+ VIEWS (STANDARD) EXAMINATION: XR FOOT LEFT 3+ VIEWS (STANDARD); XR ANKLE LEFT 3+ VIEWS (STANDARD) 03/20/2024 8:50 pm HISTORY: ORDERING SYSTEM PROVIDED HISTORY: twisted ankle; mild pain 5th MT, TECHNOLOGIST PROVIDED HISTORY: Injury/Trauma Reason for exam: fell out of camper, pain all over but more lateral Cancer History: unknown Surgery, Radiation History: unknown Encounter Type: Initial Mechanism of injury: Patient reports she was stepping out of her camper, the camper steps were folded in. She landed on her twisted ankle ORDERING SYSTEM PROVIDED DIAGNOSIS CODES: COMPARISON: None. FINDINGS: Three views of the left ankle and 3 views of the left foot were obtained. No acute fracture or dislocation is seen. The joint spaces are preserved. The ankle mortise is congruent. There is no significant left ankle joint effusion. There is soft tissue edema overlying the anterior and lateral aspects of the ankle. IMPRESSION: 1. Soft tissue edema overlying the anterior and lateral aspects of the left ankle with no acute fracture or dislocation of the left ankle or foot seen. If pain persists, repeat radiographs are recommended in 7-10 days. [facility] Workstation ID: [id number] Dictated by: WINNIE FOSTER on ThuMar 20, 2024 11:10:57 PM EDT Transcribed by: SHYANNE CA on ThuMar 20, 2024 11:12:07 PM EDT Finalized by: WINNIE FOSTER on ThuMar 20, 2024 11:13:13 PM EDT [facility] Comment on above: Order Comment: Injur y/Trauma or Illness?:Injury/Trauma How long have you had these symptoms (acute/chronic)?:Acute Reason for exam?:fell out of camper, pain all over but more lateral History of cancer?:unknown Surgeries, chemotherapy, or radiation?:unknown Type of Exam?:Initial Mechanism of injury?:Patient reports she was stepping out of her camper, the camper steps were folded in. She landed on her twisted ankle Absolute lymphocyte countOrd ered By: Marc Chawla on 03-13-2023 Lymphocytes Auto (Unsp spec) [#/Vol] 1.60 10*3/uL 0.83-4.51 [facility] Basophil percentageOrdered B y: Marc Chawla on 03-13-2023 Basophil percentage 0-5 SEEN /hpf 0-5 [facility] Basophils/100 WBC (Bld) 0.7 % 0-1 [facility] Bilirubin [Mass/Vol] 0.40 mg/dL 0.20-1.00 [facility] Comment on above: For patients on eltr ombopag therapy, use of Dimension [place] TBIL is not recommended. Chloride [Moles/Vol] 105 mmol/L 98-107 [facility] Eosinophils/100 WBC (Bld) 0.9 % 0-5 [facility] Glucose [Mass/Vol] 79 mg/dL 74-106 [facility] Neutrophils (Bld) [#/Vol] 6.4 10*3/uL 2.0-7.7 [facility] Neutrophils/100 WBC (Bld) 71.0 % 47-70 [facility] Potassium [Moles/Vol] 3.8 mmol/L 3.5-5.1 [facility] Protein [Mass/Vol] 7.3 g/dL 6.4-8.2 [facility] Sodium [Moles/Vol] 138 mmol/L 136-145 [facility] WBC (Bld) [#/Vol] 9.1 10*3/uL 4.4-11.0 [facility] Bilirubin Test strip Ql (U)O rdered By: Marc Chawla on 03-13-2023 Bilirubin Ql (U) Negative Negative [facility] Blood erythrocytes count (nu mber/volume)Ordered By: Marc Chawla on 03-13-2023 RBC (Bld) [#/Vol] 4.14 10*6/uL 4.2-5.4 [facility] Blood hemoglobin measurement (mass/volume)Ordered By: Marc Chawla on 03-13-2023 Hemoglobin (Bld) [Mass/Vol] 11.5 g/dL 12.0-15.0 [facility] Blood lymphocytes/100 leukoc ytesOrdered By: Marc Chawla on 03-13-2023 Lymphocytes/100 WBC (Bld) 17.7 % 19-41 [facility] Blood monocytes/100 leukocyt esOrdered By: Marc Chawla on 03-13-2023 Monocytes/100 WBC (Bld) 5.3 % 0-10 [facility] Blood platelet mean volumeOr dered By: Marc Chawla on 03-13-2023 Platelet mean volume (Bld) [Entitic vol] 9.2 fL 6.2-12.0 [facility] Determination of erythrocyte mean corpuscular volume (MCV)Ordered By: Marc Chawla on 03-13-2023 MCV (RBC) [Entitic vol] 86.5 fL 81-99 [facility] Hematocrit Auto (Bld) [Volum e fraction]Ordered By: Marc Chawla on 03-13-2023 Hematocrit (Bld) [Volume fraction] 35.8 % 37-47 [facility] Ketones Test strip Ql (U)Ord ered By: Marc Chawla on 03-13-2023 Ketones Ql (U) 150 mg/dl Negative [facility] Comment on above: CRITICAL VALUE *HCRI TICAL VALUE VERIFIED. CALLED TO [id number] Myra Bryant.RESULTS READ BACK BY SAME . Laboratory - Chemistry and C hemistry - challengeOrdered By: Marc Chawla on 03-13-2023 ALP [Catalytic activity/Vol] 110 U/L 45-117 [facility] ALT [Catalytic activity/Vol] 53 U/L 13-56 [facility] CO2 [Moles/Vol] 23.0 mmol/L 21.0-32.0 [facility] Globulin (S) [Mass/Vol] 4.4 g/dL 2.2-4.2 [facility] Lipase [Catalytic activity/Vol] 28 U/L 13-75 [facility] Comment on above: Please note:LIPASE r evised reference range effective 23. New Lipase methodology. Expected to produce lower values than the previous assay method. NEW Reference Range: 13 - 75 U/L Urea nitrogen/Creatinine [Mass ratio] 14.3 mg/mg 10-20 [facility] - Hematology and Cell countsOrdered By: Marc Chawla on 03-13-2023 Erythrocyte distribution width (RBC) [Entitic vol] 41.7 fL 35.1-43.9 [facility] Erythrocyte distribution width (RBC) [Ratio] 13.4 % 11.6-14.6 [facility] Immature granulocytes/100 WBC (Bld) 4.400 % 0.0-0.9 [facility] Comment on above: IG% - Immature Granu locytes (promyelocytes, myelocytes and metamyelocytes) > 1% indicates that a LEFT SHIFT is Present. MCH (RBC) [Entitic mass] 27.8 pg 27.0-32.0 [facility] Nucleated RBC/100 WBC (Bld) [Ratio] 0.2 % 0-5 [facility] MCHC Auto (RBC) [Mass/Vol]Or dered By: Marc Chawla on 03-13-2023 MCHC (RBC) [Mass/Vol] 32.1 g/dL 32-36 [facility] Mucus LM Ql (Urine sed)Order ed By: Marc Chawla on 03-13-2023 Mucus Ql (Urine sed) 0 SEEN /hpf [facility] Nitrite Test strip Ql (U)Ord ered By: Marc Chawla on 03-13-2023 Nitrite Ql (U) Negative Negative [facility] No Panel InformationOrdered By: Marc Chawla on 03-13-2023 Estimated Creatinine Clearance Calc 107.01 ml/min [facility] Estimated GFR (MDRD) Amer 132 mL/min >60 [facility] Comment on above: GFR Calc Estimated GFR (MDRD) Non-Af Amer 109 mL/min >60 [facility] Comment on above: Non- GFR Calc Platelets bldOrdered By: Pam Chawla on 03-13-2023 Platelets (Bld) [#/Vol] 395 10*3/uL 150-450 [facility] Protein Test strip Ql (U)Ord ered By: Marc Chawla on 03-13-2023 Protein Ql (U) 30 mg/dl Negative [facility] Serum or plasma albumin maximino urement (mass/volume)Ordered By: Marc Chawla on 03-13-2023 Albumin [Mass/Vol] 2.9 g/dL 3.2-5.0 [facility] Serum or plasma albumin/glob ulin mass ratioOrdered By: Marc Chawla on 03-13-2023 Albumin/Globulin [Mass ratio] 0.7 {ratio} 0.9-2.4 [facility] Serum or plasma calcium maximino urement (mass/volume)Ordered By: Marc Chawla on 03-13-2023 Calcium [Mass/Vol] 9.4 mg/dL 8.5-10.1 [facility] Serum or plasma creatinine m easurement (mass/volume)Ordered By: Marc Chawla on 03-13-2023 Creatinine [Mass/Vol] 0.70 mg/dL 0.55-1.02 [facility] Comment on above: The validity of the calculated GFR & GFRAA in patients over 70 years has not been determined. Clinical correlation is essential. Serum or plasma urea nitroge n measurement (mass/volume)Ordered By: Marc Chawla on 03-13-2023 Urea nitrogen [Mass/Vol] 10 mg/dL 7-18 [facility] Squamous epithelial cells de tection in urine sediment by light microscopyOrdered By: Marc Chawla on 03-13-2023 Epithelial cells.squamous LM Ql (Urine sed) 0-5 SEEN /hpf 5-10 [facility] Thin prep Papanicolaou smear with manual screeningOrdered By: Marc Chawla on 03-13-2023 Thin prep Papanicolaou smear with manual screening 33 U/L 15-37 [facility] Thin prep Papanicolaou smear with manual screening 10 5-15 [facility] Urine blood detectionOrdered By: Marc Chawla on 03-13-2023 RBC Ql (U) 250 /ul Negative [facility] RBC Ql (U) 0 SEEN /hpf 0-5 [facility] Urine clarityOrdered By: Pam Chawla on 03-13-2023 Clarity (U) Sl. Cloudy Clear [facility] Urine color determinationOrd ered By: Marc Chawla on 06-30-2023 Color (U) Yellow Yellow [facility] Urine glucose detectionOrder ed By: Marc Chawla on 03-13-2023 Glucose Ql (U) Normal mg/dl Normal [facility] Urine leukocyte esterase det ection by dipstickOrdered By: Marc Chawla on 03-13-2023 Leukocyte esterase Test strip Ql (U) 25 /ul Negative [facility] Urine pHOrdered By: Marc cruz on 03-13-2023 pH (U) 6.0 [pH] 5.0 - 8.0 [facility] Urine sediment bacteria coun t by microscopy (number/high power field)Ordered By: Marc Chawla on 03-13-2023 Bacteria LM.HPF (Urine sed) [#/Area] 0 /[HPF] None Seen [facility] Urine specific gravity measu rementOrdered By: Marc Chawla on 03-13-2023 Specific gravity (U) [Rel density] 1.015 1.002-1.030 [facility] Urobilinogen Auto test strip Ql (U)Ordered By: Marc Chawla on 03-13-2023 Urobilinogen Ql (U) Normal mg/dl Normal [facility] Basophil percentageOrdered B y: Dr. Arteaga on 03-07-2023 WBC (Bld) [#/Vol] 14.7 10*3/uL 4.4-11.0 [facility] Blood erythrocytes count (nu mber/volume)Ordered By: Dr. Arteaga on 03-07-2023 RBC (Bld) [#/Vol] 3.64 10*6/uL 4.2-5.4 [facility] Blood hemoglobin measurement (mass/volume)Ordered By: Dr. Arteaga on 03-07-2023 Hemoglobin (Bld) [Mass/Vol] 10.3 g/dL 12.0-15.0 [facility] Blood platelet mean volumeOr dered By: Dr. Arteaga on 03-07-2023 Platelet mean volume (Bld) [Entitic vol] 9.7 fL 6.2-12.0 [facility] Determination of erythrocyte mean corpuscular volume (MCV)Ordered By: Dr. Arteaga on 03-07-2023 MCV (RBC) [Entitic vol] 86.0 fL 81-99 [facility] Hematocrit Auto (Bld) [Volum e fraction]Ordered By: Dr. Arteaga on 03-07-2023 Hematocrit (Bld) [Volume fraction] 31.3 % 37-47 [facility] - Hematology and Cell countsOrdered By: Dr. Arteaga on 03-07-2023 Erythrocyte distribution width (RBC) [Entitic vol] 43.2 fL 35.1-43.9 [facility] Erythrocyte distribution width (RBC) [Ratio] 14.0 % 11.6-14.6 [facility] MCH (RBC) [Entitic mass] 28.3 pg 27.0-32.0 [facility] MCHC Auto (RBC) [Mass/Vol]Or dered By: Dr. Arteaga on 03-07-2023 MCHC (RBC) [Mass/Vol] 32.9 g/dL 32-36 [facility] Platelets bldOrdered By: Dr. Arteaga on 03-07-2023 Platelets (Bld) [#/Vol] 229 10*3/uL 150-450 [facility] Absolute lymphocyte countOrd ered By: Dr. Arteaga on 03-05-2023 Lymphocytes Auto (Unsp spec) [#/Vol] 2.03 10*3/uL 0.83-4.51 [facility] Basophil percentageOrdered B y: Dr. Arteaga on 03-05-2023 Basophils/100 WBC (Bld) 0.3 % 0-1 [facility] Eosinophils/100 WBC (Bld) 1.1 % 0-5 [facility] Neutrophils (Bld) [#/Vol] 6.0 10*3/uL 2.0-7.7 [facility] Neutrophils/100 WBC (Bld) 66.8 % 47-70 [facility] Blood lymphocytes/100 leukoc ytesOrdered By: Dr. Arteaga on 03-05-2023 Lymphocytes/100 WBC (Bld) 22.8 % 19-41 [facility] Blood monocytes/100 leukocyt esOrdered By: Dr. Arteaga on 03-05-2023 Monocytes/100 WBC (Bld) 8.0 % 0-10 [facility] - Hematology and Cell countsOrdered By: Dr. Arteaga on 03-05-2023 Immature granulocytes/100 WBC (Bld) 1.000 % 0.0-0.9 [facility] Comment on above: IG% - Immature Granu locytes (promyelocytes, myelocytes and metamyelocytes) > 1% indicates that a LEFT SHIFT is Present. Nucleated RBC/100 WBC (Bld) [Ratio] 0 % 0-5 [facility] Serum Treponema species anti body detectionOrdered By: Dr. Arteaga on 03-05-2023 Treponema sp Ab Ql (S) Non-Reactive [facility] - Chemistry and C hemistry - challengeon 02-26-2023 Glucose Ql (U) Negative [facility] - Urinalysison Protein Ql (U) Negative [facility] No Panel InformationOrdered By: Dr. Hou on 02-22-2023 Group B Streptococcus Culture Group B Beta Streptococcus is not isolated. [facility] - Chemistry and C hemistry - challengeon 02-19-2023 Glucose Ql (U) Negative [facility] - Urinalysison Protein Ql (U) Negative [facility] No Panel InformationOrdered By: Carine Hou on 02-19-2023 Group B Streptococcus Culture Group B Beta Streptococcus is not isolated. [facility] Culture, urineOrdered By: Dr Daysi Arteaga on 02-12-2023 Bacteria identified Cx Nom (U) Positive [facility] Culture, urineOrdered By: Pamela Arteaga on 02-10-2023 Bacteria identified Cx Nom (U) Positive [facility] - Chemistry and C hemistry - challengeon 02-10-2023 Glucose Ql (U) Negative [facility] - Urinalysison Protein Ql (U) Negative [facility] - Chemistry and C hemistry - challengeon 02-05-2023 Glucose Ql (U) Negative [facility] - Urinalysison Protein Ql (U) Negative [facility] - Chemistry and C hemistry - challengeon 01-29-2023 Glucose Ql (U) Negative [facility] - Urinalysison Protein Ql (U) Negative [facility] - Chemistry and C hemistry - challengeon 01-22-2023 Glucose Ql (U) Negative [facility] - Urinalysison Protein Ql (U) Negative [facility] - Chemistry and C hemistry - challengeon 01-15-2023 Glucose Ql (U) Negative [facility] - Urinalysison Protein Ql (U) Negative [facility] - Chemistry and C hemistry - challengeon 01-12-2023 Glucose Ql (U) Negative [facility] - Urinalysison Protein Ql (U) Negative [facility] - Chemistry and C hemistry - challengeon 01-08-2023 Glucose Ql (U) Negative [facility] - Urinalysison Protein Ql (U) Negative [facility] - Chemistry and C hemistry - challengeon 01-01-2023 Glucose Ql (U) Negative [facility] - Urinalysison Protein Ql (U) Negative [facility] - Chemistry and C hemistry - challengeon 12-22-2022 Glucose Ql (U) Negative [facility] - Urinalysison Protein Ql (U) Negative [facility] - Chemistry and C hemistry - challengeon 12-15-2022 Glucose Ql (U) Negative [facility] - Urinalysison Protein Ql (U) Negative [facility] Quantitative serum or plasma 3 hour gestational glucose tolerance panelOrdered By: Dr. Hou on 12-15-2022 Glucose tolerance 3 hours gestational panel See comment [facility] Comment on above: FASTING 88 Col: 040 12/04 0708GLUCOSE TOLERANCE TEST FOR Reference Interval GESTATIONAL DIABETES Fasting <105 mg/dL 1 hour <190 mg/dl 2 hour <165 mg/dl 3 hour <145 mg/dl 1 HR GLU 165 Col: 12/15/22 0814 2 HR GLU 143 Col: 12/15/22 0912 3 HR GLU 77 Col: 12/15/22 1013 Absolute lymphocyte countOrd ered By: Dr. Hou on 12-11-2022 Lymphocytes Auto (Unsp spec) [#/Vol] 1.75 10*3/uL 0.83-4.51 [facility] Basophil percentageOrdered B y: Dr. Hou on 12-11-2022 Basophils/100 WBC (Bld) 0.2 % 0-1 [facility] Eosinophils/100 WBC (Bld) 0.7 % 0-5 [facility] Neutrophils (Bld) [#/Vol] 6.6 10*3/uL 2.0-7.7 [facility] Neutrophils/100 WBC (Bld) 73.5 % 47-70 [facility] WBC (Bld) [#/Vol] 9.0 10*3/uL 4.4-11.0 [facility] Blood erythrocytes count (nu mber/volume)Ordered By: Dr. Hou on 12-11-2022 RBC (Bld) [#/Vol] 3.99 10*6/uL 4.2-5.4 [facility] Blood hemoglobin measurement (mass/volume)Ordered By: Dr. Hou on 12-11-2022 Hemoglobin (Bld) [Mass/Vol] 11.4 g/dL 12.0-15.0 [facility] Blood lymphocytes/100 leukoc ytesOrdered By: Dr. Hou on 12-11-2022 Lymphocytes/100 WBC (Bld) 19.5 % 19-41 [facility] Blood monocytes/100 leukocyt esOrdered By: Dr. Hou on 12-11-2022 Monocytes/100 WBC (Bld) 4.9 % 0-10 [facility] Blood platelet mean volumeOr dered By: Dr. Hou on 12-11-2022 Platelet mean volume (Bld) [Entitic vol] 9.1 fL 6.2-12.0 [facility] Determination of erythrocyte mean corpuscular volume (MCV)Ordered By: Dr. Hou on 12-11-2022 MCV (RBC) [Entitic vol] 85.5 fL 81-99 [facility] Gestational diabetes screen 1-hour screen with 50g oral glucose loadOrdered By: Dr. Hou on 12-11-2022 Glucose 1 Hr post 50 g glucose PO [Mass/Vol] 157 mg/dL 70-140 [facility] HIV 1 and HIV-2 antibody ass ay with HIV-1 p24 antigen detectionOrdered By: Dr. Hou on 12-11-2022 HIV 1+2 Ab+HIV1 p24 Ag IA Ql Non-Reactive Nonreactive [facility] Hematocrit Auto (Bld) [Volum e fraction]Ordered By: Dr. Hou on 12-11-2022 Hematocrit (Bld) [Volume fraction] 34.1 % 37-47 [facility] - Hematology and Cell countsOrdered By: Dr. Hou on 12-11-2022 Erythrocyte distribution width (RBC) [Entitic vol] 42.4 fL 35.1-43.9 [facility] Erythrocyte distribution width (RBC) [Ratio] 13.5 % 11.6-14.6 [facility] Immature granulocytes/100 WBC (Bld) 1.200 % 0.0-0.9 [facility] Comment on above: IG% - Immature Granu locytes (promyelocytes, myelocytes and metamyelocytes) > 1% indicates that a LEFT SHIFT is Present. MCH (RBC) [Entitic mass] 28.6 pg 27.0-32.0 [facility] Nucleated RBC/100 WBC (Bld) [Ratio] 0 % 0-5 [facility] MCHC Auto (RBC) [Mass/Vol]Or dered By: Dr. Hou on 12-11-2022 MCHC (RBC) [Mass/Vol] 33.4 g/dL 32-36 [facility] Platelets bldOrdered By: Dr. Hou on 12-11-2022 Platelets (Bld) [#/Vol] 250 10*3/uL 150-450 [facility] Serum Treponema species anti body detectionOrdered By: Dr. Hou on 12-11-2022 Treponema sp Ab Ql (S) Non-Reactive [facility] - Chemistry and C hemistry - challengeon 12-02-2022 Glucose Ql (U) Negative [facility] - Urinalysison Protein Ql (U) Negative [facility] Chlamydia trachomatis rRNA d etection by probe and target amplification methodOrdered By: Elmer Hinkle on 11-12-2022 C. trachomatis rRNA RA+probe Ql (Unsp spec) Negative Negative [facility] Gram stain for investigation of transfusion reactionOrdered By: Elmer Hinkle on 11-12-2022 Microscopic observation Gram stain Nom (Unsp spec) [facility] - Chemistry and C hemistry - challengeon 11-12-2022 Glucose Ql (U) Negative [facility] - Microbiology an d Antimicrobial susceptibilityOrdered By: Elmer Hinkle on 11-12-2022 N. gonorrhoeae DNA RA+probe Ql (Unsp spec) Negative Negative [facility] Comment on above: Performed at: [address] [id number] Director: Elsa Waller MD, Phone: [phone] Laboratory - Urinalysison Protein Ql (U) Negative [facility] No Panel InformationOrdered By: Elmer Hinkle on 11-12-2022 Vaginal Amniotic Fluid Detection Negative Negative [facility] Comment on above: Amniotic fluid not p resent indicates No Rupture of FetalMembranes at time of specimen collection. No Panel Informationon 11-12 POC Bacterial Vaginitis (Rapid) Negative [facility] POC Trichomonas (Rapid) Negative [facility] - Chemistry and C hemistry - challengeon 11-04-2022 Glucose Ql (U) Negative [facility] - Urinalysison Protein Ql (U) Negative [facility] Culture, urineOrdered By: Lane Mota on 10-09-2022 Bacteria identified Cx Nom (U) Culture exhibits no growth. [facility] - Chemistry and C hemistry - challengeon 10-07-2022 Glucose Ql (U) Negative [facility] - Urinalysison Protein Ql (U) Negative [facility] - Chemistry and C hemistry - challengeon 09-12-2022 Glucose Ql (U) Negative [facility] - Urinalysison Protein Ql (U) Negative [facility] APTTon 09-03-2022 aPTT Coag (Bld) [Time] 30 s Normal 26 - 39 [facility] Comment on above: Result Comment: THE APTT IS NO LONGER USED FOR MONITORING UNFRACTIONATED HEPARIN THERAPY. FOR MONITORING HEPARIN THERAPY, USE THE HEPARIN ASSAY. Performed By: #### A PTT #### [address] [address] BNPon 09-03-2022 Natriuretic peptide B (Bld) [Mass/Vol] 12 pg/mL Normal 0 - 99 [facility] Comment on above: Result Comment: . <1 00 pg/mL - Heart failure unlikely 100-299 pg/mL - Intermediate probability of acute heart . failure exacerbation. Correlate with clinical . context and patient history. >=300 pg/mL - Heart Failure likely. Correlate with clinical . context and patient history. BNP testing is performed using different testing methodology at [facility] than at other [facility]. Direct result comparisons should only be made within the same method. Performed By: #### B NP2 #### [address] [address] CBC AND DIFFERENTIALon 09-03 % AUTOMATED IMMATURE GRAN 0.6 % Normal 0.0 - 0.9 [facility] Comment on above: Result Comment: Erica ture Granulocyte Count (IG) includes promyelocytes, myelocytes and metamyelocytes but does not include bands. Percent differential counts (%) should be interpreted in the context of the absolute cell counts (cells/L). Performed By: #### C BCDF #### [address] [address] Basophils (Bld) [#/Vol] 0.03 10*3/uL Normal 0.00 - 0.1 0 [facility] Comment on above: Performed By: #### C BCDF #### [address] [address] Basophils/100 WBC (Bld) 0.3 % Normal 0.0 - 2.0 [facility] Comment on above: Performed By: #### C BCDF #### [address] [address] Eosinophils (Bld) [#/Vol] 0.08 10*3/uL Normal 0.00 - 0.70 [facility] Comment on above: Performed By: #### C BCDF #### [address] [address] Eosinophils/100 WBC (Bld) 0.8 % Normal 0.0 - 6.0 [facility] Comment on above: Performed By: #### C BCDF #### [address] [address] Erythrocyte distribution width (RBC) [Ratio] 12.3 % Normal 11.5 - 14.5 [facility] Comment on above: Performed By: #### C BCDF #### [address] [address] Hematocrit (Bld) [Volume fraction] 36.6 % Normal 36.0 - 46.0 [facility] Comment on above: Performed By: #### C BCDF #### [address] [address] Hemoglobin (Bld) [Mass/Vol] 12.3 g/dL Normal 12.0 - 16.0 [facility] Comment on above: Performed By: #### C BCDF #### [address] [address] Lymphocytes (Bld) [#/Vol] 2.42 10*3/uL Normal 1.20 - 4.80 [facility] Comment on above: Performed By: #### C BCDF #### [address] [address] Lymphocytes/100 WBC (Bld) 24.3 % Normal 13.0 - 44.0 [facility] Comment on above: Performed By: #### C BCDF #### [address] [address] MCHC (RBC) [Mass/Vol] 33.6 g/dL Normal 32.0 - 36.0 [facility] Comment on above: Performed By: #### C BCDF #### [address] [address] MCV (RBC) [Entitic vol] 86 fL Normal 80 - 100 [facility] Comment on above: Performed By: #### C BCDF #### [address] [address] Monocytes (Bld) [#/Vol] 0.50 10*3/uL Normal 0.10 - 1.0 0 [facility] Comment on above: Performed By: #### C BCDF #### [address] [address] Monocytes/100 WBC (Bld) 5.0 % Normal 2.0 - 10.0 [facility] Comment on above: Performed By: #### C BCDF #### [address] [address] Neutrophils (Bld) [#/Vol] 6.86 10*3/uL Normal 1.20 - 7.70 [facility] Comment on above: Result Comment: Perc ent differential counts (%) should be interpreted in the context of the absolute cell counts (cells/L). Performed By: #### C BCDF #### [address] [address] Neutrophils/100 WBC (Bld) 69.0 % Normal 40.0 - 80.0 [facility] Comment on above: Performed By: #### C BCDF #### [address] [address] Platelets (Bld) [#/Vol] 260 10*3/uL Normal 150 - 450 [facility] Comment on above: Performed By: #### C BCDF #### [address] [address] RBC 4.28 x10E12/L Normal 4.00 - 5.20 [facility] Comment on above: Performed By: #### C BCDF #### [address] [address] WBC (Bld) [#/Vol] 10.0 10*3/uL Normal 4.4 - 11.3 [facility] Comment on above: Performed By: #### C BCDF #### [address] [address] CHEST 1 VIEWon 09-03-2022 CHEST 1 VIEW Patient Name: MARKEL LAN STUDY: CHEST 1 VIEW; 09/03/2022 9:59 am INDICATION: palpitation . COMPARISON: Previous exam is from 07/24/2018. ACCESSION NUMBER(S): [id number] ORDERING CLINICIAN: ROSENDO VILLA TECHNIQUE: Single AP portable view of the chest was obtained. FINDINGS: MEDIASTINUM/ LUNGS/ BIJAL: No cardiomegaly, vascular congestion, or pleural effusion. No abnormal opacity in either lung worrisome for tumor or pneumonia. No pneumothorax. No tracheal deviation. No abnormal hilar fullness or gross mass on either side. BONES: No lytic or blastic destructive bone lesion. UPPER ABDOMEN: Grossly intact. IMPRESSION: Negative exam. Electronically signed by: VIKI SKINNER MD Normal [facility] COMPREHENSIVE PANELon 2021 Albumin [Mass/Vol] 4.1 g/dL Normal 3.4 - 5.0 [facility] Comment on above: Performed By: #### R SVPC #### [place] [address] ALP [Catalytic activity/Vol] 73 U/L Normal 33 - 110 [facility] Comment on above: Performed By: #### R SVPC #### [place] [address] ALT [Catalytic activity/Vol] 20 U/L Normal 7 - 45 [facility] Comment on above: Result Comment: Lisa ents treated with Sulfasalazine may generate falsely decreased results for ALT. Performed By: #### R SVPC #### [place] [id number] Anion gap [Moles/Vol] 13 mmol/L Normal 10 - 20 [facility] Comment on above: Performed By: #### R SVPC #### [place] [id number] AST [Catalytic activity/Vol] 18 U/L Normal 9 - 39 [facility] Comment on above: Performed By: #### R SVPC #### [place] [id number] Bilirubin [Mass/Vol] 0.4 mg/dL Normal 0.0 - 1.2 [facility] Comment on above: Performed By: #### R SVPC #### [place] [id number] Calcium [Mass/Vol] 9.3 mg/dL Normal 8.6 - 10.3 [facility] Comment on above: Performed By: #### R SVPC #### [address] [address] Chloride [Moles/Vol] 102 mmol/L Normal 98 - 107 [facility] Comment on above: Performed By: #### R SVPC #### [address] [address] Creatinine [Mass/Vol] 0.55 mg/dL Normal 0.50 - 1.05 [facility] Comment on above: Performed By: #### R SVPC #### [address] [address] eGFR FEMALE >90 Normal >90 [facility] Comment on above: Result Comment: CALC ULATIONS OF ESTIMATED GFR ARE PERFORMED USING THE 2020 CKD-EPI STUDY REFIT EQUATION WITHOUT THE RACE VARIABLE FOR THE IDMS-TRACEABLE CREATININE METHODS. https://jasn.asnjournals.org/content/early//ASN.2020 539651 Performed By: #### R SVPC #### [address] [address] Glucose [Mass/Vol] 76 mg/dL Normal 74 - 99 [facility] Comment on above: Performed By: #### R SVPC #### [address] [address] HCO3 (Bld) [Moles/Vol] 24 mmol/L Normal 21 - 32 [facility] Comment on above: Performed By: #### R SVPC #### [address] [address] Potassium [Moles/Vol] 3.9 mmol/L Normal 3.5 - 5.3 [facility] Comment on above: Performed By: #### R SVPC #### [address] [address] Protein [Mass/Vol] 6.9 g/dL Normal 6.4 - 8.2 [facility] Comment on above: Performed By: #### R SVPC #### [address] [address] Sodium [Moles/Vol] 135 mmol/L Low 136 - 145 [facility] Comment on above: Performed By: #### R SVPC #### [place] [address] [place] [address] Urea nitrogen [Mass/Vol] 7 mg/dL Normal 6 - 23 [facility] Comment on above: Performed By: #### R SVPC #### [address] [address] Covid 19 Resultson 2 SARS-CoV-2 (COVID-19) RNA RA+probe Ql (Unsp spec) NEGATIVE COVID-19 Test Coronaviruses are common world-wide and are the cause of many common colds. SARS-COV2 is a new coronavirus that began circulating worldwide in 2019 so we are calling it COVID-19. It has been estimated that four out of five patients with COVID-19 will recover at home without the need for medical attention. Symptoms of COVID-19 may include cough, fever, shortness of breath, loss of taste or smell and other flu-like symptoms including chills, sore muscles, sore throat, and headache. Severe illness is more common in older people and people with other health problems such as high blood pressure, obesity, and immune system problems. If the test is positive, you have COVID-19. You will be contacted by the ordering physicians office and instructed to remain on home isolation, in accordance with CDC guidelines. You may also be contacted by the [facility] to see if any of your close contacts may have been exposed to the virus and need to quarantine. If the test is negative, you likely do not have COVID-19 at this time, but you still may have a different illness that can spread to other people (like Influenza, or the Flu) and could still be at risk for getting COVID-19. We recommend that you stay away from other people to limit the spread of illness until your symptoms are improving and you are fever-free for 24 hours without the use of fever lowering medications such as acetaminophen or ibuprofen. No test is 100% accurate so if you are still concerned you may have COVID-19, talk to your doctor about the need to continue to stay away from others. Medicines Unless your provider told you not to use the following: Acetaminophen (Tylenol and others) is generally safe. Anti-inflammatory medications, such as Ibuprofen (Advil or Motrin) or Naproxen (Aleve) can also be used. Kgqt-[id number] cough and cold medicines can be used according to the instructions on the package. Some kkwb-yyh-uqpswyr medicines also contain acetaminophen. Make sure you are not taking more than your recommended dose. For those not hospitalized, there is no specific treatment available for this illness. Antibiotics do not treat Coronaviruses. Follow-Up Follow up with your doctor by scheduling a virtual visit or consider follow-up at one of our urgent care fever clinics. If you are having difficulty breathing, or are very weak and having difficulty standing, this is a medical emergency. Call 911 or have someone take you to the nearest emergency room immediately. If possible, wear a facemask. Additional guidance from the CDC for patients who tested POSITIVE for COVID-19 How to isolate: Isolate yourself in a specific room at home and limit your contact with others. Use a separate bathroom from other members of the household, when possible. Leave home only to get essential medical care. Do not go to work, school or public areas. Avoid using public transportation, ride-sharing, or taxis. Restrict contact with pets and other animals. If you must care for your pet or be around animals while you are sick, wash your hands before and after your interaction and wear a facemask. Make sure that shared spaces in the home have good airflow, such as by an air conditioner or an opened window, weather permitting. Personal Hygiene Procedures: Wear a face mask when in the same room as other people or pets. If a face mask interferes with your breathing, others should wear a mask when sharing space with you. Frequent hand-washing: wash your hands with soap and water for at least 20 seconds. If soap and water are not available, use alcohol-based hand television tube inspector. Avoid touching your eyes, nose, and mouth with unwashed hands. Household Hygiene Procedures: Avoid sharing personal household items such as dishes, glassware, cups, eating utensils, towels or bedding with other people or pets in your home. After use, these items should be washed with soap and hot water. Disinfect all high-touch surfaces every day with antibacterial cleaning solutions such as Lysol wipes, bleach, cleansers, etc. High-touch surfaces include tabletops, doorknobs, bathroom fixtures, toilets, phones, keyboards, tablets and bedside tables. Immediately clean any surfaces that may have blood, poop or body fluids on them, using antibacterial cleaning solutions such as Lysol wipes, bleach, cleansers, etc. If clothing or bedding come into contact with blood, poop or body fluids, they should be washed immediately. Follow the directions on the laundry detergent and clothing labels but hot water is recommended when possible. Stopping home isolation precautions: If possible, consult your doctor before stopping home isolation precautions. According to the CDC, you can discontinue home isolation precautions when you have met both of these criteria: Your fever and respiratory symptoms have been gone for 24 isael (more content not included)... Normal [facility] D-DIMER, VTE EXCLUSIONon D-DIMER, VTE EXCLUSION 470 ng/mL FEU Normal < or = 500 [facility] Comment on above: Result Comment: The VTE Exclusion D-Dimer assay is reported in ng/mL Fibrinogen Equivalent Units (FEU). Per manufacturers instructions for use, a value of less than 500 ng/mL (FEU) may help to exclude DVT or PE in outpatients when the assay is used with a clinical pretest probability assessment. ([facility] must utilize and document eCalc Wells Score Deep Vein Thrombosis Risk for DVT exclusion only; Emergency Department should utilize Guidelines for Emergency Department Use of the VTE Exclusion D-Dimer and Clinical Pretest probability assessment model for DVT or PE exclusion.) Performed By: #### D IMEX #### [place] [id number] INFLUENZA A/B, COVID 2019 PC R,SYMPTOMATICon 09-03-2022 INFLUENZA A, PCR Not detected Normal Not Detected [facility] Comment on above: Result Comment: Resp iratory virus testing is performed routinely by PCR for Influenza A/B and RSV. Not Detected results do not preclude Influenza A/B or RSV infections since the adequacy of sample collection or low viral burden may impact the clinical sensitivity of this test method. Performed By: #### C OINP #### [place] [id number] INFLUENZA B, PCR Not detected Normal Not Detected [facility] Comment on above: Result Comment: Resp iratory virus testing is performed routinely by PCR for Influenza A/B and RSV. Not Detected results do not preclude Influenza A/B or RSV infections since the adequacy of sample collection or low viral burden may impact the clinical sensitivity of this test method. Performed By: #### C OINP #### [place] [address] SARS-CoV-2 (COVID-19) RNA RA+probe Ql (Unsp spec) Not detected Normal Not Detected [facility] Comment on above: Result Comment: . This test has received FDA Emergency Use Authorization (EUA) and has been verified by [facility]. This test is only authorized for the duration of time that circumstances exist to justify the authorization of the emergency use of in vitro diagnostic tests for the detection of SARS-CoV-2 virus and/or diagnosis of COVID-19 infection under section 564(b)(1) of the Act, 21 U.S.C. 360bbb-3(b)(1), unless the authorization is terminated or revoked sooner. [facility] is certified under CLIA-88 as qualified to perform high complexity testing. Testing is performed in the [facility] laboratory located at [address] [place] [address]. SARS-CoV-2/Flu/RSV Multiplex Test: Fact sheet for providers: https://www.fda.gov/media/109291/download Fact sheet for patients: https://www.fda.gov/media/138006/download Performed By: #### C OINP #### [place] [address] Lab Specimen Source Nasal, Nasopharyngeal Normal [facility] Comment on above: Performed By: #### C OINP #### [place] [address] Performed By: #### R SVPC #### [place] [address] PT/INRon 09-03-2022 PT Coag (PPP) [Time] 11.6 s Normal 9.8 - 13.4 [facility] Comment on above: Performed By: #### P MIGUELR #### [address] [address] PT, INR 1.0 Normal 0.9 - 1.1 [facility] Comment on above: Performed By: #### P MIGUELR #### [address] [address] Provider Note - ED v3on 12- Provider Note - ED v3 Provider Note: Chart Review: ED NOTES ED NOTES: Source of Information: Patient. EMR was reviewed for previous records. -------- HPI: Lightheadedness, heart racing, . This 21-year-old white female states that she was at work around 745 this evening when she began to feel dizzy and lightheaded like she might pass out she states that her apple watch told her heart rate was racing up to 180s at times. She denies any recent illness or urinary symptoms. She denies any vertiginous type symptoms she denied chest pain. She states that she is currently 13 weeks she sees [facility] at [place]. Patient denies any leg pain or swelling. Patient denies having similar symptoms in the past. Denies any recent history of morning sickness. Denies any family history of heart disease or heart problems. When the patient sits down her symptoms improve. -------- PMH: 13 weeks. PSH: Denies Social Hx: The patient denies any use of tobacco, alcohol or illicit drugs. Fam: MEDS: Denies ALLERGIES: NKDA -------- PHYSICAL EXAM: General: Patient alert, awake, oriented X3, appears to be in no obvious distress, nontoxic, cooperative Skin: Warm. Dry. Intact. No rash. Eyes: PEARTLA, EOMIs intact, sclera white, conjunctiva clear HEENT: Atraumatic. Normo-cephalic. Oral and nasal mucosa pink and moist. Neck: Supple without meningismus, no lymphadenopathy. CV: Regular rate and rhythm without murmurs, heaves, lifts or thrills. Respiratory: Nonlabored breathing. There are no retractions or tachypnea. Lungs are clear to auscultation bilaterally. GI: Soft, nontender, without gross distention, bowel sounds present in all 4 quadrants. There is no pulsatile masses. There is no CVA tenderness. No rebound, rigidity or guarding. MUSC: There is no joint swelling or bony tenderness on exam. Neuro: Cranial nerves II - XII grossly intact. No focal neurologic deficits are noted on exam. Lower extremities: There is no peripheral edema bilaterally, negative Homans sign. No palpable cords. Distal pulses are +2/4 and present in both lower extremities. Psych: Maintains eye contact. Cooperative. -------- ED course: EKG was interpreted by myself at 9:30 AM reveals sinus rhythm with short AR interval of 106 ms. No other acute ST or T wave changes noted. The heart rate is 96 bpm. The QRS durations 80 ms. QTc is 427 ms axis is 87 degrees. EKG was interpreted by myself at 10:46 AM reveals sinus rhythm 78 bpm with rightward axis no other acute ST or T wave changes noted. The AR interval is 114 ms. QRS durations 86 ms. QTc is 451 ms axis is 90 degrees. Patient was seen and evaluated due to feeling lightheaded with her heart racing. Orthostatic vital signs were abnormal and patient was with IV fluids I ordered a second liter of normal saline wide open and will have repeat orthostatic vital signs performed. Lab work was unremarkable testing for COVID and influenza was normal. Patient does have contamination of her urine due to the fact that she is and she was treated with oral Keflex prior to be discharged home with a prescription for Keflex she was referred back to [facility] for follow-up she is encouraged to drink plenty of fluids specially since she is . This chart was dictated with the use of PreApps software within the framework of the current electronic medical records software. Attempts were made to edit in real time, given time constraints there is the potential for inaccuracies in my dictation. 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 She reports that they have to wear N-95s now at work and that added to her s/s. EKG done at )(1). Triage Information: Most recent Vital Sign Value Date Temp (F): 98.3 09-03-2022 09:43 Temp (C): 36.8 09-03-2022 09:43 Heart Rate (beats/min): 99 09-03-2022 09:43 Respirations (breaths/min): 16 09-03-2022 09:43 SpO2 (%): 100 09-03-2022 09:43 BP Systolic (mm Hg): 128 09-03-2022 09:43 BP Diastolic (mm Hg): 89 09-03-2022 09:43 PAST MEDICAL HISTORY CURRENT OR FORMER SUBSTANCE USE: Tobacco/Nicotine Use: never smoker Alcohol Use: denies Drug Use: denies,ALLERGI (more content not included)... Normal [facility] RSV PCRon 09-03-2022 RSV,PCR Not detected Normal Not Detected [facility] Comment on above: Result Comment: Resp iratory virus testing is performed routinely by PCR for Influenza A/B and RSV. Not Detected results do not preclude Influenza A/B or RSV infections since the adequacy of sample collection or low viral burden may impact the clinical sensitivity of this test method. Performed By: #### R [facility] #### [place] [id number] [place] [id number] Risk Screen - Adult Emergenc yon 09-03-2022 Risk Screen - Adult Emergency Preferred Language: Preferred Language: Preferred Language for Discussing Health Care (patient/designee)Leslie arrieta Patient Preferred Pharmacy: Patient Preferred Pharmacy Statement: I have reviewed and updated the patient's preferred pharmacy selection for today's visit. Advanced Directives: Advance Directive/DNRno Family Violence Adult: Abuse Screen: Are you or have you been threatened or abused physically, emotionally, or sexually by anyoneno Learning Assessment (Patient): Learning Assessment (Patient): Patient is Able to be Assessed for Learningyes Factors Influencing Readiness to Learnacuteness of illness Factors that Impact Ability to Learnnone Devices/Methods Used to Communicatenone Learning Preferencesverbal instruction; written material Cultural Considerationsnone Developmental Considerationsnone Orthodoxy Considerationsnone Learning Assessment (Other Learner): Learning Assessment (Other Learner): Other learner availableno Pressure Injury/TB/Substance: Pressure Injury: Pressure Injury Present on Admissionno Do you have a coughno Smoking Statusnever smoker Alcohol Usedenies Drug Usedenies Admission Risk Screen: Significant IndicatorsComplete CAGE: CAGE: Is this an injured patient at a Trauma Center ([facility]/[place] /[place]): no Electronic Signatures: Audra Correa (RN) (Signed 03-Sep-2022 09:49) Authored: Preferred Language, Patient Preferred Pharmacy, Advanced Directives, Family Violence Adult, Learning Assessment (Patient), Learning Assessment (Other Learner), Pressure Injury/TB/Substance, Pressure Injury, CAGE Last Updated: 03-Sep-2022 09:49 by Audra Correa (RN) Normal [facility] TROPONIN I, HIGH SENSITIVITY on 09-03-2022 TROPONIN I, HIGH SENSITIVITY <3 Normal 0 - 13 [facility] Comment on above: Result Comment: . Less than 99th percentile of normal range cutoff- Female and children under 18 years old <14 ng/L; Male <21 ng/L: Negative Repeat testing should be performed if clinically indicated. . Female and children under 18 years old 14-50 ng/L; Male 21-50 ng/L: Consistent with possible cardiac damage and possible increased clinical risk. Serial measurements may help to assess extent of myocardial damage. . >50 ng/L: Consistent with cardiac damage, increased clinical risk and myocardial infarction. Serial measurements may help assess extent of myocardial damage. . NOTE: Children less than 1 year old may have higher baseline troponin levels and results should be interpreted in conjunction with the overall clinical context. . NOTE: Troponin I testing is performed using a different testing methodology at [facility] than at other [facility]. Direct result comparisons should only be made within the same method. Performed By: #### T [facility] #### [place] [address] TROPONIN I, HIGH SENSITIVITY <3 Normal 0 - 13 [facility] Comment on above: Result Comment: . Less than 99th percentile of normal range cutoff- Female and children under 18 years old <14 ng/L; Male <21 ng/L: Negative Repeat testing should be performed if clinically indicated. . Female and children under 18 years old 14-50 ng/L; Male 21-50 ng/L: Consistent with possible cardiac damage and possible increased clinical risk. Serial measurements may help to assess extent of myocardial damage. . >50 ng/L: Consistent with cardiac damage, increased clinical risk and myocardial infarction. Serial measurements may help assess extent of myocardial damage. . NOTE: Children less than 1 year old may have higher baseline troponin levels and results should be interpreted in conjunction with the overall clinical context. . NOTE: Troponin I testing is performed using a different testing methodology at [facility] than at other [facility]. Direct result comparisons should only be made within the same method. Performed By: #### T [facility] #### [address] [address] TSHon 09-03-2022 TSH Qn 1.61 m[IU]/L Normal 0.44 - 3.98 [facility] Comment on above: Result Comment: TSH testing is performed using different testing methodology at [facility] than at other [facility]. Direct result comparisons should only be made within the same method. Performed By: #### R SV #### [address] [address] Triage - EDon 09-03-2022 Triage - ED Quick Triage: Are You yes Have You Given In The Last 6 Weeksno Are You Currently Breastfeedingno The patient and/or guardian verbally acknowledges placement for services into the following (when Urgent Care Service hours are operating):emergency department Chart Review: ARRIVAL INFORMATION Mode of Arrival: private vehicle CHIEF COMPLAINT MARKEL LAN is a Female patient with a chief complaint of dizziness (To ED per wheelchair from work approximately 13 weeks with c/o feeling hot and lightheaded at work. She reports that they have to wear N-95s now at work and that added to her s/s. EKG done at ). Triage Date/Time: 03-Sep-2022 09:31 SIMON: 3 Pain Rating (0-10): 0 = None Pain location: denies Vital Signs: Temperature: 98.3F ( 36.8C) taken temporal Blood Pressure: 128/89 Mean: Heart Rate: 99 Respiratory Rate: 16 Pulse Oximetry: 100% on room air, no respiratory support. Weight: 174.1 pounds. Calculated 79.0 kg. [place] Coma Scale: Best Eye Response: (E4) spontaneous Best Motor Response: (M6) obeys commands Best Verbal Response: (V5) oriented Jossy Score: 15 Cough lasting greater than 3 weeks: no Allergies: no Mask applied: yes Last menstrual period: 05-Jun-2022 [employer] [facility] History: Patient has homicidal thoughts: no Symptoms Are Negative For: anorexia, blurred vision, chills, congestion, earache, fever, headache, malaise, nausea and vomiting. Last Known Well: unknown Risk Screens Suicide Risk Screen In the Past Month: Have you wished you were or wished you could go to sleep and not wake up no In the Past Month: Have you had any actual thoughts of killing yourself no In Your Lifetime: Have you ever done anything, started to do anything, or prepared to do anything to end your life no Latif Fall Scale Screening Has the patient fallen before (or is the patient in the ED as a result of a fall) has not had a fall Does the patient have an impaired gait does not have impaired gait Is the patient cognitively impaired not cognitively impaired Interventions: Latif Fall Interventions: LOW INTERVENTIONS: *patient oriented to surroundings and call system, * patient/family falls education completed and documented, *patients fall status communicated during bedside handoff, *whiteboard updated, *mode of toileting discussed with patient, *bed in low position with brakes locked, *call light in reach, * non-skid footwear TRAVEL HISTORY Travel History Coronavirus Screening: positive for exposure Travel Exposure History: NO travel to International locations in the past 30 days PAIN Pain Scale Used: ENRRIQUE Pain Rating (0-10): 0 = None Past Medical History: Past Medical History Reviewedyes Electronic Signatures: Audra Correa) (Signed 03-Sep-2022 09:47) Entered: Risk Screens, Pain, Travel History, Chart Review, Scores, Past Medical History Authored: Quick Triage, Risk Screens, Pain, Travel History, Chart Review, Scores, Past Medical History Last Updated: 03-Sep-2022 09:47 by Audra Correa) Normal [facility] UA MICROSCOPICon 09-03-2022 BACTERIA 4+ /HPF Abnormal [facility] Comment on above: Performed By: #### R SV #### [place] [address] HYALINE CAST OCC Abnormal [facility] Comment on above: Performed By: #### R SVPC #### [place] [address] Mucus Ql (Urine sed) 3+ /LPF Normal [facility] Comment on above: Performed By: #### R SVPC #### [place] [address] RBC 3 /HPF Normal 0-5 [facility] Comment on above: Performed By: #### R SVPC #### [place] [address] SQUAMOUS EPITH. CELLS 5 /HPF Normal [facility] Comment on above: Performed By: #### R SVPC #### [place] [address] TRANSITIONAL EPITH.CELLS <1 Normal [facility] Comment on above: Performed By: #### R SVPC #### [place] [address] WBC 6 /HPF Abnormal 0-5 [facility] Comment on above: Performed By: #### R SVPC #### [place] [address] URINALYSIS WITH CULTURE IF I NDICATEDon 09-03-2022 Appearance (U) CLEAR Normal CLEAR [facility] Comment on above: Performed By: #### U ARFX #### [place] [address] Bilirubin Ql (U) Negative Normal NEGATIVE Located within [facility] Comment on above: Performed By: #### U ARFX #### [place] [address] Color (U) YELLOW Normal STRAW,YELLOW [facility] Comment on above: Performed By: #### U ARFX #### [place] [address] Glucose Ql (U) Negative Normal NEGATIVE [facility] Comment on above: Performed By: #### U ARFX #### [place] [address] Hemoglobin Ql (U) TRACE Abnormal NEGATIVE [facility] Comment on above: Performed By: #### U ARFX #### [address] [address] Ketones Ql (U) 300 (3+) Abnormal NEGATIVE [facility] Comment on above: Performed By: #### U ARFX #### [address] [address] Leukocyte esterase Test strip Ql (U) TRACE Abnormal NEGATIVE [facility] Comment on above: Performed By: #### U ARFX #### [address] [address] Nitrite Ql (U) Negative Normal NEGATIVE [facility] Comment on above: Performed By: #### U ARFX #### [address] [address] pH (U) 6.0 [pH] Normal 5.0 - 8.0 [facility] Comment on above: Performed By: #### U ARFX #### [address] [address] Protein Ql (U) Negative Normal NEGATIVE [facility] Comment on above: Performed By: #### U ARFX #### [address] [address] Specific gravity (U) [Rel density] 1.020 Normal 1.005 - 1.035 [facility] Comment on above: Performed By: #### U ARFX #### [address] [address] Urobilinogen (U) [Mass/Vol] mg/dL Normal 0.0 - 1.9 [facility] Comment on above: Performed By: #### U ARFX #### [address] [address] URINE CULTURE,BACTERIALon URINE CULTURE,BACTERIAL PATIENT: MARKEL BRITO LOCATION: [facility]#: [id number] : 89 AGE: SEX: F ORDERED BY: ROSENDO VILLA SOURCE: URINE COLLECTED: 09/03/22 11:20 ANTIBIOTICS AT [facility].: RECEIVED : 09/03/22 21:47 SITE: R E S U L T S URINE CULTURE,BACTERIAL FINAL 09/04/22 14:13 NO GROWTH Normal [facility] Comment on above: Performed By: #### R SVPC #### [facility] [address] [place] [address] Absolute lymphocyte countOrd ered By: Dr. Hou on 08-26-2022 Lymphocytes Auto (Unsp spec) [#/Vol] 2.08 10*3/uL 0.83-4.51 [facility] Basophil percentageOrdered B y: Dr. Hou on 08-26-2022 Basophils/100 WBC (Bld) 0.4 % 0-1 [facility] Eosinophils/100 WBC (Bld) 1.6 % 0-5 [facility] Neutrophils (Bld) [#/Vol] 5.6 10*3/uL 2.0-7.7 [facility] Neutrophils/100 WBC (Bld) 68.2 % 47-70 [facility] WBC (Bld) [#/Vol] 8.2 10*3/uL 4.4-11.0 [facility] Blood erythrocytes count (nu mber/volume)Ordered By: Dr. Hou on 08-26-2022 RBC (Bld) [#/Vol] 4.60 10*6/uL 4.2-5.4 [facility] Blood hemoglobin measurement (mass/volume)Ordered By: Dr. Hou on 08-26-2022 Hemoglobin (Bld) [Mass/Vol] 13.2 g/dL 12.0-15.0 [facility] Blood lymphocytes/100 leukoc ytesOrdered By: Dr. Hou on 08-26-2022 Lymphocytes/100 WBC (Bld) 25.4 % 19-41 [facility] Blood monocytes/100 leukocyt esOrdered By: Dr. Hou on 08-26-2022 Monocytes/100 WBC (Bld) 3.8 % 0-10 [facility] Blood platelet mean volumeOr dered By: Dr. Hou on 08-26-2022 Platelet mean volume (Bld) [Entitic vol] 9.0 fL 6.2-12.0 [facility] Determination of erythrocyte mean corpuscular volume (MCV)Ordered By: Dr. Hou on 08-26-2022 MCV (RBC) [Entitic vol] 85.0 fL 81-99 [facility] HIV 1 and HIV-2 antibody ass ay with HIV-1 p24 antigen detectionOrdered By: Dr. Hou on 08-26-2022 HIV 1+2 Ab+HIV1 p24 Ag IA Ql Non-Reactive Nonreactive [facility] Hematocrit Auto (Bld) [Volum e fraction]Ordered By: Dr. Hou on 08-26-2022 Hematocrit (Bld) [Volume fraction] 39.1 % 37-47 [facility] Laboratory - Hematology and Cell countsOrdered By: Dr. Hou on 08-26-2022 Erythrocyte distribution width (RBC) [Entitic vol] 37.2 fL 35.1-43.9 [facility] Erythrocyte distribution width (RBC) [Ratio] 12.2 % 11.6-14.6 [facility] Immature granulocytes/100 WBC (Bld) 0.600 % 0.0-0.9 [facility] Comment on above: IG% - Immature Granu locytes (promyelocytes, myelocytes and metamyelocytes) > 1% indicates that a LEFT SHIFT is Present. MCH (RBC) [Entitic mass] 28.7 pg 27.0-32.0 [facility] Nucleated RBC/100 WBC (Bld) [Ratio] 0 % 0-5 [facility] MCHC Auto (RBC) [Mass/Vol]Or dered By: Dr. Hou on 08-26-2022 MCHC (RBC) [Mass/Vol] 33.8 g/dL 32-36 [facility] No Panel InformationOrdered By: Dr. Hou on 08-26-2022 Hepatitis B Surface Antigen Non-Reactive Nonreactive [facility] Hepatitis C Antibody Non-Reactive Nonreactive [facility] Comment on above: Non Reactive: < 0.8 Equivocal: >/= 0.8 to < 1.0 Reactive: >/= 1.0The CDC recommends that a reactive/equivocal HCV antibody result be followed up by the HCV Nucleic Acid Amplificationtest (426127) Miscellaneous Test Comment MAILED SPECIMEN [facility] Rubella IgG Antibody Reactive Nonreactive [facility] Comment on above: Antibody Results Int erpretation of Immune Status Non Reactive Presumed Non-Immune Equivocal Equivocal Reactive Presumed Immune Platelets bldOrdered By: Dr. Hou on 08-26-2022 Platelets (Bld) [#/Vol] 286 10*3/uL 150-450 [facility] Serum Treponema species anti body detectionOrdered By: Dr. Hou on 08-26-2022 Treponema sp Ab Ql (S) Non-Reactive [facility] Culture, urineOrdered By: Dr Daysi Hou on 08-16-2022 Bacteria identified Cx Nom (U) Positive [facility] Laboratory - Chemistry and C hemistry - challengeon 08-14-2022 Glucose Ql (U) Negative [facility] - Drug toxicology Ordered By: Dr. Hou on 08-14-2022 Amphetamines Ql (U) Negative <1000 ng/mL [facility] Benzodiazepines Ql (U) Negative < 200 ng/mL [facility] Cannabinoids Screen Ql (U) Negative < 50 ng/mL [facility] Cocaine Ql (U) Negative < 300 ng/mL [facility] Opiates Ql (U) Negative < 300 ng/mL [facility] Laboratory - Urinalysison Protein Ql (U) Negative [facility] No Panel InformationOrdered By: Dr. Hou on 08-14-2022 MDMA (Ecstasy) Screen Negative < 500 ng/mL [facility] Urine Barbiturates Screen Negative < 200 ng/mL [facility] Urine Drug Screen Comment [facility] Comment on above: CONFIRMATORY TESTING FOR ALL POSITIVE URINE DRUG SCREENRESULTS WILL ONLY BE SENT OUT UPON PHYSICIAN ORDER. VISTA Urine Drug Screen methods provide only preliminaryanalytical test results. A more specific alternate chemicalmethod must be used in order to obtain a confirmedanalytical result. Gas chromatography/mass spectrometery(GC/MS) is the preferred confirmatory method. Clinicalconsideration and professional judgement should be appliedto any drug of abuse test result, particularly whenpreliminary positive results are used. URINE TCA TESTING MUST BE ORDERED SEPARATELY. USE TESTMNEMONIC: [facility] Urine Methadone Screen Negative < 300 ng/mL [facility] Urine phencyclidine (PCP) de tectionOrdered By: Dr. Hou on 08-14-2022 Phencyclidine Ql (U) Negative < 25 ng/mL [facility] Culture, urineOrdered By: Dr Daysi Reyes on 08-07-2022 Bacteria identified Cx Nom (U) Culture exhibits no growth. [facility] Absolute lymphocyte countOrd ered By: Dr. Reyes on 08-05-2022 Lymphocytes Auto (Unsp spec) [#/Vol] 2.49 10*3/uL 0.83-4.51 [facility] Basophil percentageOrdered B y: Dr. Reyes on 08-05-2022 Basophils/100 WBC (Bld) 0.3 % 0-1 [facility] Eosinophils/100 WBC (Bld) 1.5 % 0-5 [facility] Neutrophils (Bld) [#/Vol] 6.2 10*3/uL 2.0-7.7 [facility] Neutrophils/100 WBC (Bld) 65.0 % 47-70 [facility] WBC (Bld) [#/Vol] 9.5 10*3/uL 4.4-11.0 [facility] Blood erythrocytes count (nu mber/volume)Ordered By: Dr. Reyes on 08-05-2022 RBC (Bld) [#/Vol] 4.65 10*6/uL 4.2-5.4 [facility] Blood hemoglobin measurement (mass/volume)Ordered By: Dr. Reyes on 08-05-2022 Hemoglobin (Bld) [Mass/Vol] 13.6 g/dL 12.0-15.0 [facility] Blood lymphocytes/100 leukoc ytesOrdered By: Dr. Reyes on 08-05-2022 Lymphocytes/100 WBC (Bld) 26.2 % 19-41 [facility] Blood monocytes/100 leukocyt esOrdered By: Dr. Reyes on 08-05-2022 Monocytes/100 WBC (Bld) 5.8 % 0-10 [facility] Blood platelet mean volumeOr dered By: Dr. Reyes on 08-05-2022 Platelet mean volume (Bld) [Entitic vol] 9.4 fL 6.2-12.0 [facility] Cervical or vagninal specime n microscopic examination by cytology stain (reported asOrdered By: Dr. Reyes on 08-05-2022 Cytology report Cyto stain Doc (Cvx/Vag) Comment . [facility] Comment on above: The Pap smear is a s creening test designed to aid in thedetection of premalignant and malignant conditions of theuterine cervix. It is not a diagnostic procedure andshould not be used as the sole means of detecting cervicalcancer. Both false-positive and false-negative reports dooccur. Chlamydia trachomatis rRNA d etection by probe and target amplification methodOrdered By: Dr. Reyes on 08-05-2022 C. trachomatis rRNA RA+probe Ql (Unsp spec) Negative Negative [facility] Determination of erythrocyte mean corpuscular volume (MCV)Ordered By: Dr. Reyes on 08-05-2022 MCV (RBC) [Entitic vol] 84.7 fL 81-99 [facility] HIV 1 and HIV-2 antibody ass ay with HIV-1 p24 antigen detectionOrdered By: Dr. Reyes on 08-05-2022 HIV 1+2 Ab+HIV1 p24 Ag IA Ql Non-Reactive Nonreactive [facility] Hematocrit Auto (Bld) [Volum e fraction]Ordered By: Dr. Reyes on 08-05-2022 Hematocrit (Bld) [Volume fraction] 39.4 % 37-47 [facility] Laboratory - CytologyOrdered By: Dr. Reyes on 08-05-2022 Clerical Secretary Cyto stain Nom (Cvx/Vag) [ID] Comment . [facility] Comment on above: Tyesha Tolliver, Cytotec hnologist (ASCP) Pathologist Cyto stain Nom (Cvx/Vag) [ID] Comment . [facility] Comment on above: Chanda Sifuentes MD, Pa thologist Recommended follow-up Cyto stain Nom (Cvx/Vag) Comment . [facility] Comment on above: Suggest follow up as clinically appropriate. Laboratory - Hematology and Cell countsOrdered By: Dr. Reyes on 08-05-2022 Erythrocyte distribution width (RBC) [Entitic vol] 37.8 fL 35.1-43.9 [facility] Erythrocyte distribution width (RBC) [Ratio] 12.4 % 11.6-14.6 [facility] Immature granulocytes/100 WBC (Bld) 1.200 % 0.0-0.9 [facility] Comment on above: IG% - Immature Granu locytes (promyelocytes, myelocytes and metamyelocytes) > 1% indicates that a LEFT SHIFT is Present. MCH (RBC) [Entitic mass] 29.2 pg 27.0-32.0 [facility] Nucleated RBC/100 WBC (Bld) [Ratio] 0 % 0-5 [facility] Laboratory - Microbiology an d Antimicrobial susceptibilityOrdered By: Dr. Reyes on 08-05-2022 N. gonorrhoeae DNA RA+probe Ql (Unsp spec) Negative Negative [facility] Comment on above: Performed at: =[address] [id number] Director: Elsa Waller MD, Phone: [phone] Laboratory - Miscellaneous t estsOrdered By: Dr. Reyes on 08-05-2022 Service comment (Unsp spec) [Interp] Comment . [facility] Comment on above: This liquid based Th inPrep(R) pap test was screened withthe use of an image guided system. Service comment (Unsp spec) [Interp] . . [facility] MCHC Auto (RBC) [Mass/Vol]Or dered By: Dr. Reyes on 08-05-2022 MCHC (RBC) [Mass/Vol] 34.5 g/dL 32-36 [facility] No Panel InformationOrdered By: Dr. Reyes on 08-05-2022 Hepatitis B Surface Antigen Non-Reactive Nonreactive [facility] Hepatitis C Antibody Non-Reactive Nonreactive [facility] Comment on above: Non Reactive: < 0.8 Equivocal: >/= 0.8 to < 1.0 Reactive: >/= 1.0The CDC recommends that a reactive/equivocal HCV antibody result be followed up by the HCV Nucleic Acid Amplificationtest (214054) Rubella IgG Antibody Reactive Nonreactive [facility] Comment on above: Antibody Results Int erpretation of Immune Status Non Reactive Presumed Non-Immune Equivocal Equivocal Reactive Presumed Immune Human Papillomavirus Screen Comment . [facility] Comment on above: See below for HPV te sting results. Pathology report final diagnosis Narrative Comment . [facility] Comment on above: EPITHELIAL CELL ABNO RMALITY.ATYPICAL SQUAMOUS CELLS OF UNDETERMINED SIGNIFICANCE (ASC-US). R87.610 Platelets bldOrdered By: Dr. Reyes on 08-05-2022 Platelets (Bld) [#/Vol] 312 10*3/uL 150-450 [facility] Serum Treponema species anti body detectionOrdered By: Dr. Reyes on 08-05-2022 Treponema sp Ab Ql (S) Non-Reactive [facility] Serum Varicella zoster virus IgG antibody assay by immunoassay (units/volume)Ordered By: Dr. Reyes on 08-05-2022 VZV IgG IA Qn (S) 859 index Immune >[facility] Comment on above: Negative <135 Equivo maris 135 - 165 Positive >165A positive result generally indicates exposure to thepathogen or administration of specific immunoglobulins,but it is not indication of active infection or stageof disease.Performed at: [employer] [id number] Director: Toño Candelario PhD, Phone: [phone] IO UA (automated w/o microsc opy)on 02-12-2022 Protein (U) [Mass/Vol] Negative [facility] Work Phone: IO UA (automated w/o microscopy) Negative [facility] Work Phone: IO UA (automated w/o microscopy) Normal (0.2-1.0 mg/dl) [facility] Work Phone: IO UA (automated w/o microscopy) 6.0 1 [facility] Work Phone: IO UA (automated w/o microscopy) 1.025 1 [facility] Work Phone: IO UA (automated w/o microscopy) Clear [facility] Work Phone: IO UA (automated w/o microscopy) Pratibha [facility] Work Phone: Office Visit (Primary Care F orms)on 02-12-2022 Follow-up visit Diagnosis/Problems Assessed Bladder leak (948.30) (R32) Referral to ADMISSIONS MANAGER RN/URO Urinalysis in office was negative. advised trying to urinate every 2-3 hours drink plenty of water, avoid caffeine BMI 27.0-27.9,adult (V85.23) (Z68.27) *Orders Bladder leak IO UA (automated w/o microscopy); Status:Complete; Done: 12Feb2022 11:18AM Performed:In Office; Due:13May2022;Ordered; For:Bladder leak; Ordered By:Lexus Darnell; Gynecologic Urology Evaluation and Treatment Evaluate AND Treat Status: Active Requested for: 13Feb2022 Ordered;For: Bladder leak; Ordered By: Lexus Darnell Performed: Due: 13May2022; Last Updated By: Niesha Provider; 02/12/2022 12:11:04 PM AMA Intake Activity Log Entry by Yoanna Kirkpatrick ([email or web address]) on 2022-02-12 12:07 Status Change: To Confirmed - N/A AMA Intake updated by Yoanna Kirkpatrick ([email or web address]) on 2022-02-12 12:07 New Recipient: Mary Jane Juarez New Appointment Date: 2022-02-13 14:30 AMA Intake Activity Log Entry by Yoanna Kirkpatrick ([email or web address]) on 2022-02-12 12:07 Status Change: To Scheduling in Process - First Call, called pt to schedule her ADMISSIONS MANAGER RN/URO Referral Bladder leak (788.30) (R32) Patient Discussion/Summary Follow up as needed. Chief Complaint Pt presents with c/o bladder leakage. History of Present IllnessMarkel returns with complaints of bladder leakage she believes. She is unsure of when this started, but have recently thought it to be annoying enough, to get checked out. She denies any pregnancies/deliveries. She does not have any history of frequent UTIs. She denies any exposure to STIs or believe the wetness/discharge on her underwear is coming from her vagina. She reports some mild tenderness around her belly button that just started. Denies any new or different back/flank pain. She is sexually active and is in a monogamous relationship of 4 years. Review of Systems Constitutional: not feeling tired and no fever. Genitourinary: normal urine frequency, no dysuria, no urinary urgency, no hesitancy, no blood in urine, no pelvic pain . leakage of small amts of urine. Musculoskeletal: no back pain. 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) COVID-19 virus infection (079.89) (U07.1) Encounter for immunization (V03.89) (Z23) Lumbar radiculitis (724.4) (M54.16) Persistent adjustment disorder with mixed anxiety and depressed mood (309.28) (F43.23) Wrist pain, chronic (719.43,338.29) (M25.539,G89.29) Past Medical History Problems No pertinent past medical history (V49.89) (Z78.9) Surgical History Problems History of Tonsillectomy with adenoidectomy Family History Mother Family history of malignant neoplasm of breast (V16.3) (Z80.3) Social History Problems Carbonated beverages Coffee Never smoker No advance directives (V49.89) (Z78.9) No illicit drug use Occasional alcohol use Use of energy drinks (V49.89) (Z78.9) Current Meds Medication NameInstruction hydrOXYzine HCl - 25 MG Oral TabletTake one tablet at bedtime as needed for anxiety ZyrTEC Allergy 10 MG Oral TabletTAKE 1 TABLET DAILY DIRECTED. Allergies Medication No Known Drug Allergies Recorded By: Kristal Arriaga; 12/21/2019 9:08:10 AM Vitals Vital Signs Recorded: 12Feb2022 10:44AM Heart Rate97 Tzebtkwa446, LUE Denqhyqsp62, LUE Height5 ft 5 in Akyktr802 lb BMI Qtkvdiwpqv91.96 kg/m2 BSA Calculated1.84 Tobacco Useb) No Fall Screeninga) No falls within the last year O2 Wsrkpdpfjk44 Physical Exam Constitutional - Well developed, well nourished, well hydrated and no acute distress. Vital signs reviewed. Pulmonary - normal respiratory effort. Abdomen - Abnormal exam of abdomen. There was mild tenderness in the periumbilical area. The abdomen was not firm. No rebound tenderness. No guarding. no CVA tenderness. Musculoskeletal - Gait and station: Normal. Results/Data IO UA (automated w/o microscopy)12Feb2022 11:18Lexus Shaw [employer] [id number] 07/14/22 Test NameResultFlagReference IO ColorAmber IO AppearanceClear IO Glucose - UrineNegative IO BilirubinNegative IO KetonesNegative IO Specific Gravity1.025 IO BloodNegative IO pH6.0 IO Protein, UrineNegative IO Urobilinogen Normal (0.2-1.0 mg/dl) IO Nitrite, UrineNegative IO LeukocytesNegative Signatures Electronically signed by : Lexus Darnell APRN-JACQUELIN; Feb 12 2022 8:36PM EST (Author) Normal [employer] Tobacco Screening.on 022 Fall risk assessment a) No falls within the last year [facility] Work Phone: Tobacco use status [facility] b) No M [facility] Work Phone: Office Visit (Primary Care F orms)on 10-03-2021 Follow-up visit Diagnosis/Problems Assessed COVID-19 virus infection (079.89) (U07.1) Became symptomatic 09/22/2021, diagnosed by home ag test 09/24/2021. Now with persistent symptoms as outlined in hpi. Will provide rx for symptomatic relief as below. Also recommend scheduled guaifenasin for congestion. Medication dosing and side effects reviewed. Return precautions and symptoms that should prompt urgent/emergent evaluation discussed. Discussed quarantine - work note provided. This visit was completed virtually due to the restrictions of the COVID-19 pandemic. All issues as below were discussed and addressed, but no physical exam was performed. If it was felt that the patient should be evaluated in clinic, then they were directed there. The patient verbally consented to visit. Spent 11 minutes with patient via telephone visit. Orders COVID-19 virus infection Start: Fluticasone Propionate 50 MCG/ACT Nasal Suspension; USE 1 SPRAY IN EACH NOSTRIL TWICE DAILY Rx By: Elma Escobedo; Dispense: 0 Days ; #:1 X 16 GM Bottle; Refill: 0;For: COVID-19 virus infection; OLIVIA = N; Verified Transmission to [facility] [place] [address]; Last Updated By: Bushra Lang; 10/03/2021 12:20:31 PM Start: hydrOXYzine HCl - 25 MG Oral Tablet; Take one tablet at bedtime as needed for anxiety Rx By: Elma Escobedo; Dispense: 30 Days ; #:30 Tablet; Refill: 0;For: COVID-19 virus infection; OLIVIA = N; Verified Transmission to [facility] [facility]; Last Updated By: Bushra Lang; 10/03/2021 12:20:30 PM Chief Complaint Chief Complaints Visit For: Other A telephone visit (audio only) between the patient (at the originating site) and the provider (at the distant site) was utilized to provide this telehealth service. Verbal consent was requested and obtained from MARKEL LAN on this date, 10/03/2021 10:20 AM , for a telehealth visit. Was diagnosed with Covid on September 24 started with symptoms on the went to work on the and felt weak. She still has the weakness, body aches, congestion, issues with not being able to sleep, sore throat no vaccines, no infusion done History of Present IllnessThis is a 20yo female who presents today via telephone visit with chief complaint of covid. States that she first developed symptoms 09/22/21 - sore throat, SOB, weakness, subjective fever, chills. 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 Since that time, has had persistent sore throat, dry throat, chest congestion, nausea, weakness, bl ear fullness, insomnia. Cough has resolved. Denies CP, SOB at this time, GIBBONS, LH, dizziness, abd pain, v/d. Has tried Tylenol, Mucinex, tea without much improvement in symptoms. Did take another rapid ag test earlier this week and it was negative. Her O2 sat is >97%. Review of Systems Constitutional: no fever. Cardiovascular: no chest pain. Respiratory: no cough. All other systems have been reviewed and are negative for complaint. ENT: sore throat and ear fullness. Psychiatric: sleep disturbances. 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) Encounter for immunization (V03.89) (Z23) Lumbar radiculitis (724.4) (M54.16) Persistent adjustment disorder with mixed anxiety and depressed mood (309.28) (F43.23) Wrist pain, chronic (719.43,338.29) (M25.539,G89.29) Past Medical History Problems No pertinent past medical history (V49.89) (Z78.9) Surgical History Problems History of Tonsillectomy with adenoidectomy Family History Mother Family history of malignant neoplasm of breast (V16.3) (Z80.3) Social History Problems Carbonated beverages Coffee Never smoker No advance directives (V49.89) (Z78.9) No illicit drug use Occasional alcohol use Use of energy drinks (V49.89) (Z78.9) Current Meds Medication NameInstruction Daysee 0.15-0.03 AND0.01 MG Oral TabletTAKE 1 TABLET DAILY. ZyrTEC Allergy 10 MG Oral TabletTAKE 1 TABLET DAILY DIRECTED. Allergies Medication No Known Drug Allergies Recorded By: Kristal Arriaga; 12/21/2019 9:08:10 AM Physical Exam Ears, Nose, Mouth, and Throat - Hearing: Normal. Psychiatric - Mood and affect: Normal. Signatures Electronically signed by : Elma Escobedo DO; Oct 03 2021 12:58PM EST (Author) [facility] [birth year]17-2023 [facility] Years Diagnoses/Problems Health Maintenance/Risks Encounter for preventive health examination (V70.0) (Z00.00) Patient Discussion/Summary Physical form completed. Immunization record given from [facility]. Chief Complaint Pt presents for work physical History of Present Illnessthere are no concerns today. The patient's health since the last visit is described as good. There are no interval changes in the patient's PMH, PSH, and current medications. There are no interval changes in the patient's social and family history. She has regular dental visits. She denies vision problems. She denies hearing loss. Immunizations status: up to date. Lifestyle: She does not have a healthy diet. She has weight concerns. She does not exercise regularly. She does not use tobacco. She denies alcohol use. Gaining weight. Reproductive health: she reports normal menses. 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) Encounter for immunization (V03.89) (Z23) Lumbar radiculitis (724.4) (M54.16) Persistent adjustment disorder with mixed anxiety and depressed mood (309.28) (F43.23) Wrist pain, chronic (719.43,338.29) (M25.539,G89.29) Past Medical History Problems No pertinent past medical history (V49.89) (Z78.9) Surgical History Problems History of Tonsillectomy with adenoidectomy Family History Mother Family history of malignant neoplasm of breast (V16.3) (Z80.3) Social History Problems Carbonated beverages Coffee Never smoker No advance directives (V49.89) (Z78.9) No illicit drug use Occasional alcohol use Use of energy drinks (V49.89) (Z78.9) Allergies Medication No Known Drug Allergies Recorded By: Kristal Arriaga; 12/21/2019 9:08:10 AM Current Meds Medication NameInstruction Celecoxib 100 MG Oral CapsuleTAKE 1 CAPSULE Daily take with food Daysee 0.15-0.03 AND0.01 MG Oral TabletTAKE 1 TABLET DAILY. ZyrTEC Allergy 10 MG Oral TabletTAKE 1 TABLET DAILY DIRECTED. Vitals Vital Signs Recorded: 11Kkt1724 01:05PM Ixiotnzosrh75 F Heart Rate89 Fzteklru180, LUE Iifeoodlc63, LUE Height5 ft 5 in Snfhqj565 lb 2 oz BMI Tbdymfybmx59.31 kg/m2 BSA Calculated1.82 Tobacco Useb) No Fall Screeninga) No falls within the last year O2 Lvdkutjymv39 Physical Exam General: well nourished, in no distress Neck: No lymphadenopathy, thyromegaly or carotid bruit. Supple and normal ROM Cardiovascular: RRR, no Murmur, No edema Respiratory: Clear lungs throughout, no cough Abdomen: No tenderness or masses. Normal bowel sounds Neuro: Alert and oriented x 3, Right patella DTR 1+, left 2+ Musculoskeletal: Normal gait 'Scores and Scales' Signatures Electronically signed by : Jim Seay APRN-JACQUELIN; Apr 17 2021 4:36PM EST (Author) Normal [employer] Tobacco Screening.on 021 Fall risk assessment a) No falls within the last year [facility] Work Phone: Tobacco use status [facility] b) No [facility] Work Phone: CBC with Diffon 05-03-2018 Basophils Auto #/vol (Bld) 0.0 K/mcL Normal 0-0.2 [facility] Comment on above: Performed By: #### C BCDIF, FERR, IRON, TFERR ####Unless otherwise noted, all testing performed by [address] [id number]: [id number] Director: Trev Anders M.D. Basophils/100 WBC Auto (Bld) 0.4 % Normal [facility] Comment on above: Performed By: #### C BCDIF, FERR, IRON, TFERR ####Unless otherwise noted, all testing performed by [address] [phone]: [id number] Director: Trev Anders M.D. Eosinophils Auto #/vol (Bld) 0.2 K/mcL Normal 0-0.5 [facility] Comment on above: Performed By: #### C BCDIF, FERR, IRON, TFERR ####Unless otherwise noted, all testing performed by [address] [phone]: [id number] Director: Trev Anders M.D. Eosinophils/100 WBC Auto (Bld) 2.9 % Normal [facility] Comment on above: Performed By: #### C BCDIF, FERR, IRON, TFERR ####Unless otherwise noted, all testing performed by [address] [phone]: [id number] Director: Trev Anders M.D. Erythrocyte distribution width Auto Ratio (RBC) 12.9 % Normal 10.0-14.4 [facility] Comment on above: Performed By: #### C BCDIF, FERR, IRON, TFERR ####Unless otherwise noted, all testing performed by [address] [id number]: [id number] Director: Trev Anders M.D. Hematocrit Auto Volume Fraction (Bld) 43.1 % Normal 34.4-44.8 [facility] Comment on above: Performed By: #### C BCDIF, FERR, IRON, TFERR ####Unless otherwise noted, all testing performed by [address] [id number]: [id number] Director: Trve Anders M.D. Hemoglobin mass conc (Bld) 14.3 g/dL Normal 11.6-15.4 [facility] Comment on above: Performed By: #### C BCDIF, FERR, IRON, TFERR ####Unless otherwise noted, all testing performed by [address] [phone]: [id number] Director: Trev Anders M.D. Lymphocytes Auto #/vol (Bld) 2.7 K/mcL Normal 1.0-3.7 [facility] Comment on above: Performed By: #### C BCDIF, FERR, IRON, TFERR ####Unless otherwise noted, all testing performed by [address] [phone]: [id number] Director: Trev Anders M.D. Lymphocytes/100 WBC Auto (Bld) 37.1 % Normal [facility] Comment on above: Performed By: #### C BCDIF, FERR, IRON, TFERR ####Unless otherwise noted, all testing performed by [address] [phone]: [id number] Director: Trev Anders M.D. MCH Auto Entitic mass (RBC) 28.6 pg Normal 27.9-33.9 [facility] Comment on above: Performed By: #### C BCDIF, FERR, IRON, TFERR ####Unless otherwise noted, all testing performed by [address] [id number]: [id number] Director: Trev Anders M.D. MCHC Auto mass conc (RBC) 33.2 g/dL Normal 33.1-35.1 [facility] Comment on above: Performed By: #### C BCDIF, FERR, IRON, TFERR ####Unless otherwise noted, all testing performed by [address] [phone]: [id number] Director: Trev Anders M.D. MCV Auto Entitic volume (RBC) 86.0 fL Normal 82.6-98.9 [facility] Comment on above: Performed By: #### C BCDIF, FERR, IRON, TFERR ####Unless otherwise noted, all testing performed by [address] [phone]: [id number] Director: Trev Anders M.D. Monocytes Auto #/vol (Bld) 0.5 K/mcL Normal 0.1-0.6 [facility] Comment on above: Performed By: #### C BCDIF, FERR, IRON, TFERR ####Unless otherwise noted, all testing performed by [address] [phone]: [id number] Director: Trev Anders M.D. Monocytes/100 WBC Auto (Bld) 6.2 % Normal [facility] Comment on above: Performed By: #### C BCDIF, FERR, IRON, TFERR ####Unless otherwise noted, all testing performed by [address]8[address]CLIA: [id number] Director: Trev Anders M.D. Neutrophils Auto #/vol (Bld) 3.9 K/mcL Normal 1.2-6.9 [facility] Comment on above: Performed By: #### C BCDIF, FERR, IRON, TFERR ####Unless otherwise noted, all testing performed by [address] [phone]: [id number] Director: Trev Anders M.D. Platelet mean volume Auto Entitic volume (Bld) 8.1 fL Normal 7.0-10.6 [facility] Comment on above: Performed By: #### C BCDIF, FERR, IRON, TFERR ####Unless otherwise noted, all testing performed by [address] [phone]: [id number] Director: Trev Anders M.D. Platelets Auto #/vol (Bld) 300 K/mcL Normal 162-402 [facility] Comment on above: Performed By: #### C BCDIF, FERR, IRON, TFERR ####Unless otherwise noted, all testing performed by [place] [phone]: [id number] Director: Trev Anders M.D. RBC Auto #/vol (Bld) 5.01 M/mcL High 3.7-5.0 [facility] Comment on above: Performed By: #### C BCDIF, FERR, IRON, TFERR ####Unless otherwise noted, all testing performed by [address]8509CLIA: [id number] Director: Trev Anders M.D. Segmented Neut % 53.4 % Normal [facility] Comment on above: Performed By: #### C BCDIF, FERR, IRON, TFERR ####Unless otherwise noted, all testing performed by [address] [phone]: [id number] Director: Trev Anders M.D. WBC Auto #/vol (Bld) 7.3 K/mcL Normal 3.4-10.6 [facility] Comment on above: Performed By: #### C BCDIF, FERR, IRON, TFERR ####Unless otherwise noted, all testing performed by [address] [id number]: [id number] Director: Trev Anders M.D. Ferritinon 05-03-2018 Ferritin 20 ng/mL Normal 13-150 [facility] Comment on above: Result Comment: Samp les from patients routinely receiving high dose biotin therapy(100-300 mg/day) may show falsely decreased results. Please correlateclinically. Performed By: #### C BCDIF, FERR, IRON, TFERR ####Unless otherwise noted, all testing performed by [address] [phone]: [id number] Director: Trev Anders M.D. Iron, Totalon 05-03-2018 Iron, Total 117 mcg/dL Normal 50-170 [facility] Comment on above: Performed By: #### C BCDIF, FERR, IRON, TFERR ####Unless otherwise noted, all testing performed by [address] [phone]: [id number] Director: Trev Anders M.D. Transferrinon 05-03-2018 Transferrin mass conc 451.0 mg/dL High 212.0-360.0 O [facility] Comment on above: Performed By: #### C BCDIF, FERR, IRON, TFERR ####Unless otherwise noted, all testing performed by [address] [phone]: [id number] Director: Trev Anders M.D. PROGRESSon 09-06-2017 [facility] NOTES Normal [facility] THROAT CULTUREon 09-06-2017 THROAT CULTURE SPECIMEN DESCRIPTION THROAT SWAB CULTURE USUAL OROPHARYNGEAL ANNABEL * Result Note: Testing performed at [place], [place] [address] * REPORT STATUS 09/09/2017 * Result Note: FINAL * Normal [facility] Comment on above: Performed By: #### T HRC ####Testing performed at [address] [id number] performed at [address] [address] XR CHEST PA AND LATERALon BMI (Body Mass Index) TWO VIEW CHEST X-R AY ADDITIONAL HISTORY: Cough. COMPARISON: None. FINDINGS: Two views of the chest are submitted. There are clear lungs and no pleural effusion. The heart size is within normal limits. No acute osseous injury. CONCLUSION: 1. No acute cardiopulmonary disease. Normal [facility] Culture, urine Bacteria identified Cx Nom (U) Culture exhibits no growth. [facility] Work Phone: Bacteria identified Cx Nom (U) Positive [facility] Work Phone: Vital Signs Date Time Vital Sign Value Performing Clinician Facility 03-22-2025 10:41-0400 Body height 165.1 cm Ursula Abrahamall PA-C Work Phone: [facility] 03-22-2025 10:41-0400 Body mass index (BMI) [Ratio] 32.08 kg/m2 Ursulaemma Abrahamall PA-C Work Phone: [facility] 03-22-2025 10:41-0400 Body weight 87.45 kg Ursulaemma Abrahamall PA-C Work Phone: [facility] 03-22-2025 10:41-0400 Diastolic blood pressure 84 mm[Hg] Ursula [place] PA-C Work Phone: [facility] 03-22-2025 10:41-0400 Heart rate 86 /min Ursulaemma [place] PA-C Work Phone: [facility] 03-22-2025 10:41-0400 Systolic blood pressure 130 mm[Hg] Ursula [place] PA-C Work Phone: [facility] 03-20-2023 15:36-0400 Body height 162.56 cm No Primary Care Physician [facility] 03-20-2023 15:36-0400 Body mass index (BMI) [Ratio] 30 kg/m2 No Primary Care Physician [facility] 03-20-2023 15:36-0400 Body weight 79.37 kg No Primary Care Physician [facility] 03-20-2023 15:36-0400 Diastolic blood pressure 85 mm[Hg] No Primary Care Physician [facility] 03-20-2023 15:36-0400 Systolic blood pressure 135 mm[Hg] No Primary Care Physician [facility] 03-13-2023 19:27-0400 Body temperature 98.6 [degF] No Primary Care Physician [facility] 03-13-2023 19:27-0400 Diastolic blood pressure 78 mm[Hg] No Primary Care Physician [facility] 03-13-2023 19:27-0400 Heart rate 60 /min No Primary Care Physician [facility] 03-13-2023 19:27-0400 Respiratory rate 18 /min No Primary Care Physician [facility] 03-13-2023 19:27-0400 SaO2% (BldA) [Mass fraction] 100 % No Primary Care Physician [facility] 03-13-2023 19:27-0400 Systolic blood pressure 141 mm[Hg] No Primary Care Physician [facility] 03-13-2023 15:22-0400 Body height 162.56 cm No Primary Care Physician [facility] 03-13-2023 15:22-0400 Body mass index (BMI) [Ratio] 31.5 kg/m2 No Primary Care Physician [facility] 03-13-2023 15:22-0400 Body weight 83.3 kg No Primary Care Physician [facility] 03-11-2023 11:48-0400 Body mass index (BMI) [Ratio] 33.3 kg/m2 No Primary Care Physician [facility] 03-11-2023 11:48-0400 Body weight 87.99 kg No Primary Care Physician [facility] 03-11-2023 11:48-0400 Diastolic blood pressure 80 mm[Hg] No Primary Care Physician [facility] 03-11-2023 11:48-0400 Systolic blood pressure 130 mm[Hg] No Primary Care Physician [facility] 03-08-2023 07:37-0400 Heart rate 86 /min No Primary Care Physician [facility] 03-08-2023 07:37-0400 SaO2% (BldA) [Mass fraction] 98 % No Primary Care Physician [facility] 03-08-2023 07:35-0400 Body temperature 97.3 [degF] No Primary Care Physician [facility] 03-08-2023 07:35-0400 Diastolic blood pressure 76 mm[Hg] No Primary Care Physician [facility] 03-08-2023 07:35-0400 Respiratory rate 18 /min No Primary Care Physician [facility] 03-08-2023 07:35-0400 Systolic blood pressure 126 mm[Hg] No Primary Care Physician [facility] 03-05-2023 17:24-0400 Body height 162.56 cm No Primary Care Physician [facility] 03-05-2023 17:24-0400 Body mass index (BMI) [Ratio] 34.5 kg/m2 No Primary Care Physician [facility] 03-05-2023 17:24-0400 Body weight 91.34 kg No Primary Care Physician [facility] 02-26-2023 08:44-0400 Body mass index (BMI) [Ratio] 32.8 kg/m2 No Primary Care Physician [facility] 02-26-2023 08:44-0400 Body weight 86.86 kg No Primary Care Physician [facility] 02-26-2023 08:44-0400 Diastolic blood pressure 80 mm[Hg] No Primary Care Physician [facility] 02-26-2023 08:44-0400 Systolic blood pressure 121 mm[Hg] No Primary Care Physician [facility] 02-19-2023 10:17-0400 Body mass index (BMI) [Ratio] 34.1 kg/m2 No Primary Care Physician [facility] 02-19-2023 10:17-0400 Body weight 90.26 kg No Primary Care Physician [facility] 02-19-2023 10:17-0400 Diastolic blood pressure 76 mm[Hg] No Primary Care Physician [facility] 02-19-2023 10:17-0400 Systolic blood pressure 114 mm[Hg] No Primary Care Physician [facility] 02-10-2023 10:28-0400 Body mass index (BMI) [Ratio] 34.1 kg/m2 No Primary Care Physician [facility] 02-10-2023 10:28-0400 Body weight 90.26 kg No Primary Care Physician [facility] 02-10-2023 10:28-0400 Diastolic blood pressure 72 mm[Hg] No Primary Care Physician [facility] 02-10-2023 10:28-0400 Systolic blood pressure 116 mm[Hg] No Primary Care Physician [facility] 02-05-2023 11:31-0400 Body mass index (BMI) [Ratio] 33.8 kg/m2 No Primary Care Physician [facility] 02-05-2023 11:31-0400 Body weight 89.52 kg No Primary Care Physician [facility] 02-05-2023 11:31-0400 Diastolic blood pressure 77 mm[Hg] No Primary Care Physician [facility] 02-05-2023 11:31-0400 Systolic blood pressure 112 mm[Hg] No Primary Care Physician [facility] 01-29-2023 10:23-0400 Body mass index (BMI) [Ratio] 34 kg/m2 No Primary Care Physician [facility] 01-29-2023 10:23-0400 Diastolic blood pressure 70 mm[Hg] No Primary Care Physician [facility] 01-29-2023 10:23-0400 Systolic blood pressure 128 mm[Hg] No Primary Care Physician [facility] 01-29-2023 10:00-0400 Body weight 89.81 kg No Primary Care Physician [facility] 01-22-2023 09:32-0400 Body mass index (BMI) [Ratio] 33.7 kg/m2 No Primary Care Physician [facility] 01-22-2023 09:32-0400 Body weight 89.01 kg No Primary Care Physician [facility] 01-22-2023 09:32-0400 Diastolic blood pressure 72 mm[Hg] No Primary Care Physician [facility] 01-22-2023 09:32-0400 Systolic blood pressure 111 mm[Hg] No Primary Care Physician [facility] 01-15-2023 09:13-0400 Body mass index (BMI) [Ratio] 33.3 kg/m2 No Primary Care Physician [facility] 01-15-2023 09:13-0400 Body weight 88.22 kg No Primary Care Physician [facility] 01-15-2023 09:13-0400 Diastolic blood pressure 85 mm[Hg] No Primary Care Physician [facility] 01-15-2023 09:13-0400 Systolic blood pressure 122 mm[Hg] No Primary Care Physician [facility] 01-12-2023 09:11-0400 Body weight 86.74 kg No Primary Care Physician [facility] 01-12-2023 09:11-0400 Diastolic blood pressure 69 mm[Hg] No Primary Care Physician [facility] 01-12-2023 09:11-0400 Systolic blood pressure 106 mm[Hg] No Primary Care Physician [facility] 01-08-2023 09:19-0400 Body mass index (BMI) [Ratio] 33.2 kg/m2 No Primary Care Physician [facility] 01-08-2023 09:19-0400 Body weight 87.71 kg No Primary Care Physician [facility] 01-08-2023 09:19-0400 Diastolic blood pressure 74 mm[Hg] No Primary Care Physician [facility] 01-08-2023 09:19-0400 Systolic blood pressure 113 mm[Hg] No Primary Care Physician [facility] 01-01-2023 08:28-0400 Body mass index (BMI) [Ratio] 32.5 kg/m2 No Primary Care Physician [facility] 01-01-2023 08:28-0400 Body weight 86.18 kg No Primary Care Physician [facility] 01-01-2023 08:28-0400 Diastolic blood pressure 79 mm[Hg] No Primary Care Physician [facility] 01-01-2023 08:28-0400 Systolic blood pressure 122 mm[Hg] No Primary Care Physician [facility] 12-22-2022 11:09-0400 Body mass index (BMI) [Ratio] 32.4 kg/m2 No Primary Care Physician [facility] 12-22-2022 11:09-0400 Body weight 85.78 kg No Primary Care Physician [facility] 12-22-2022 11:09-0400 Diastolic blood pressure 79 mm[Hg] No Primary Care Physician [facility] 12-22-2022 11:09-0400 Systolic blood pressure 131 mm[Hg] No Primary Care Physician [facility] 12-15-2022 11:44-0400 Diastolic blood pressure 80 mm[Hg] No Primary Care Physician [facility] 12-15-2022 11:44-0400 Systolic blood pressure 125 mm[Hg] No Primary Care Physician [facility] 12-15-2022 11:29-0400 Body height 162.56 cm No Primary Care Physician [facility] 12-15-2022 11:26-0400 Body mass index (BMI) [Ratio] 32.3 kg/m2 No Primary Care Physician [facility] 12-15-2022 11:26-0400 Body weight 85.44 kg No Primary Care Physician [facility] 12-02-2022 08:20-0400 Body mass index (BMI) [Ratio] 32.1 kg/m2 No Primary Care Physician [facility] 12-02-2022 08:20-0400 Body weight 84.82 kg No Primary Care Physician [facility] 12-02-2022 08:20-0400 Diastolic blood pressure 80 mm[Hg] No Primary Care Physician [facility] 12-02-2022 08:20-0400 Systolic blood pressure 123 mm[Hg] No Primary Care Physician [facility] 11-12-2022 09:38-0500 Body mass index (BMI) [Ratio] 31.1 kg/m2 No Primary Care Physician [facility] 11-12-2022 09:38-0500 Body weight 82.27 kg No Primary Care Physician [facility] 11-12-2022 09:38-0500 Diastolic blood pressure 73 mm[Hg] No Primary Care Physician [facility] 11-12-2022 09:38-0500 Systolic blood pressure 111 mm[Hg] No Primary Care Physician [facility] 11-04-2022 12:55-0500 Body mass index (BMI) [Ratio] 31.4 kg/m2 No Primary Care Physician [facility] 11-04-2022 12:55-0500 Body weight 83.23 kg No Primary Care Physician [facility] 11-04-2022 12:55-0500 Diastolic blood pressure 78 mm[Hg] No Primary Care Physician [facility] 11-04-2022 12:55-0500 Systolic blood pressure 118 mm[Hg] No Primary Care Physician [facility] 10-07-2022 11:13-0500 Body height 162.56 cm EXECUTIVE ASSOCIATE-Conner Seay EXECUTIVE ASSOCIATE Work Phone: [facility] 10-07-2022 11:07-0500 Body mass index (BMI) [Ratio] 30.2 kg/m2 EXECUTIVE ASSOCIATEBessie Seay EXECUTIVE ASSOCIATE Work Phone: [facility] 10-07-2022 11:07-0500 Body weight 79.83 kg EXECUTIVE ASSOCIATE-C Jim Addis EXECUTIVE ASSOCIATE Work Phone: [facility] 10-07-2022 11:07-0500 Diastolic blood pressure 82 mm[Hg] EXECUTIVE ASSOCIATE-C Jim Addis EXECUTIVE ASSOCIATE Work Phone: [facility] 10-07-2022 11:07-0500 Systolic blood pressure 124 mm[Hg] EXECUTIVE ASSOCIATE-C Jim Addis EXECUTIVE ASSOCIATE Work Phone: [facility] 09-12-2022 10:51-0500 Body mass index (BMI) [Ratio] 29.8 kg/m2 EXECUTIVE ASSOCIATE-C Jim Addis EXECUTIVE ASSOCIATE Work Phone: [facility] 09-12-2022 10:51-0500 Body weight 78.92 kg EXECUTIVE ASSOCIATE-C Jim Addis EXECUTIVE ASSOCIATE Work Phone: [facility] 09-12-2022 10:51-0500 Diastolic blood pressure 84 mm[Hg] EXECUTIVE ASSOCIATE-C Jim Addis EXECUTIVE ASSOCIATE Work Phone: [facility] 09-12-2022 10:51-0500 Systolic blood pressure 140 mm[Hg] EXECUTIVE ASSOCIATE-C Jim Addis EXECUTIVE ASSOCIATE Work Phone: [facility] 08-14-2022 11:08-0500 Body height 162.56 cm EXECUTIVE ASSOCIATE-C Jim Addis EXECUTIVE ASSOCIATE Work Phone: [facility] Work Phone: 08-14-2022 11:08-0500 Body mass index (BMI) [Ratio] 29.9 kg/m2 EXECUTIVE ASSOCIATE-C Jim Addis EXECUTIVE ASSOCIATE Work Phone: [facility] 08-14-2022 11:08-0500 Body weight 79.09 kg EXECUTIVE ASSOCIATE-C Jim Addis EXECUTIVE ASSOCIATE Work Phone: [facility] 08-14-2022 11:08-0500 Diastolic blood pressure 86 mm[Hg] EXECUTIVE ASSOCIATE-C Jim Addis EXECUTIVE ASSOCIATE Work Phone: [facility] 08-14-2022 11:08-0500 Systolic blood pressure 123 mm[Hg] EXECUTIVE ASSOCIATE-C Jim Addis EXECUTIVE ASSOCIATE Work Phone: [facility] 02-12-2022 10:44-0400 Body height 165.1 cm Jim Boubacar Addis Work Phone: [facility] Work Phone: 02-12-2022 10:44-0400 Body mass index (BMI) [Ratio] 27.96 kg/m2 Jim Boubacar Addis Work Phone: [facility] Work Phone: 02-12-2022 10:44-0400 Body surface area Derived from formula 1.84 m2 Jim Hamlin Addis Work Phone: [facility] Work Phone: 02-12-2022 10:44-0400 Body weight 76.2 kg Jim Boubacar Geena Work Phone: [facility] Work Phone: 02-12-2022 10:44-0400 Diastolic blood pressure 70 mm[Hg] Jim Boubacar Addis Work Phone: [facility] Work Phone: 02-12-2022 10:44-0400 Heart rate 97 /min Jim Seay Work Phone: [facility] Work Phone: 02-12-2022 10:44-0400 SaO2% (BldA) [Mass fraction] 98 % Jim J Addis Work Phone: [facility] Work Phone: 02-12-2022 10:44-0400 Systolic blood pressure 100 mm[Hg] Jim Seay Work Phone: [facility] Work Phone: 04-17-2021 13:05-0400 Body height 165.1 cm Jim Seay Work Phone: [facility] Work Phone: 04-17-2021 13:05-0400 Body mass index (BMI) [Ratio] 27.31 kg/m2 Jim Seay Work Phone: [facility] Work Phone: 04-17-2021 13:05-0400 Body surface area Derived from formula 1.82 m2 Jim Seay Work Phone: [facility] Work Phone: 04-17-2021 13:05-0400 Body temperature 96 [degF] Jim Seay Work Phone: [facility] Work Phone: 04-17-2021 13:05-0400 Body weight 74.45 kg Jim Seay Work Phone: [facility] Work Phone: 04-17-2021 13:05-0400 Diastolic blood pressure 72 mm[Hg] Jim Seay Work Phone: [facility] Work Phone: 04-17-2021 13:05-0400 Heart rate 89 /min Jim Seay Work Phone: [facility] Work Phone: 04-17-2021 13:05-0400 SaO2% (BldA) [Mass fraction] 98 % Jim Seay Work Phone: [facility] Work Phone: 04-17-2021 13:05-0400 Systolic blood pressure 118 mm[Hg] Jim Seay Work Phone: [facility] Work Phone: Encounters Encounter Date Encounter Type Care Provider Facility Start: 03-22-2025 End: 03-22-2025 Office outpatient new 45 minutes Ursula Rosas PA-C Work Phone: [facility] Comment on above: Encounter to [facility] with new doctor (Primary Dx); History of iron deficiency; CHARO (generalized anxiety disorder); Depression, major, recurrent, mild; Fatigue, unspecified type; Heart palpitations; Encounter for wellness examination in adult; Seasonal allergies; Class 1 obesity due to excess calories without serious comorbidity with body mass index (BMI) of 32.0 to 32.9 in adult Start: 03-22-2025 End: 03-22-2025 Patient encounter status Ursula Rosas PA-C Work Phone: [facility] Work Phone: Start: 08-29-2024 End: 08-29-2024 Subsequent hospital visit by physician Raphael [email or web address] X-Ray [facility] Comment on above: Pain in left ankle a nd joints of left foot Start: 08-29-2024 End: 08-29-2024 ambulatory INGRID PEREZ [facility] Start: 07-14-2024 End: 07-14-2024 ambulatory Raisa Hawkins Facility:[facility] Start: 07-14-2024 End: 07-14-2024 ambulatory No Primary Care Physician Facility:[facility] Start: 03-20-2024 End: 03-20-2024 Emergency department patient visit PHYSICIAN CAMILO [facility] Start: 03-20-2023 End: 03-20-2023 Patient encounter procedure No Primary Care Physician [facility] Work Phone: Start: 03-13-2023 End: 03-13-2023 Emergency department patient visit No Primary Care Physician [facility] Work Phone: Start: 03-11-2023 End: 03-11-2023 Patient encounter procedure No Primary Care Physician [facility] Work Phone: Start: 03-09-2023 End: 03-09-2023 Patient encounter procedure No Primary Care Physician [facility] Work Phone: Start: 03-08-2023 Non-patient / Non-visit No Primary Care Physician [facility] Start: 03-07-2023 Non-patient / Non-visit No Primary Care Physician [facility] Start: 03-06-2023 Non-patient / Non-visit No Primary Care Physician [facility] Start: 03-05-2023 End: 03-08-2023 Evaluation and management of inpatient No Primary Care Physician [facility] Start: 03-02-2023 End: 03-02-2023 ambulatory MD NO PRIMARY CARE [facility] Start: 02-26-2023 End: 02-26-2023 Patient encounter procedure No Primary Care Physician [facility] Start: 02-23-2023 End: 02-23-2023 ambulatory MD NO PRIMARY CARE [facility] Start: 02-19-2023 End: 02-19-2023 Patient encounter procedure No Primary Care Physician [facility] Spec[facility] Start: 02-19-2023 End: 02-19-2023 Patient encounter procedure No Primary Care Physician [facility] Start: 02-16-2023 End: 02-16-2023 ambulatory MD NO PRIMARY CARE [facility] Start: 02-12-2023 End: 02-12-2023 ambulatory ELMER HINKLE [facility] Start: 02-10-2023 End: 02-10-2023 ambulatory No Primary Care Physician [facility] Work Phone: Start: 02-10-2023 End: 02-10-2023 Patient encounter procedure No Primary Care Physician [facility] Start: 02-10-2023 End: 02-10-2023 Patient encounter procedure No Primary Care Physician [facility] Start: 02-05-2023 End: 02-05-2023 Patient encounter procedure No Primary Care Physician [facility] Start: 02-02-2023 End: 02-02-2023 ambulatory ELMER HINKLE [facility] Start: 01-29-2023 End: 01-29-2023 Patient encounter procedure No Primary Care Physician [facility] Start: 01-26-2023 End: 01-26-2023 ambulatory ELMER HINKLE [facility] Start: 01-22-2023 Non-patient / Non-visit No Primary Care Physician [facility] Start: 01-22-2023 End: 01-22-2023 Patient encounter procedure No Primary Care Physician [facility] Start: 01-19-2023 ambulatory [facility] Start: 01-15-2023 End: 01-15-2023 Patient encounter procedure No Primary Care Physician [facility] Start: 01-12-2023 End: 01-12-2023 ambulatory [facility] Start: 01-12-2023 End: 01-12-2023 Patient encounter procedure No Primary Care Physician [facility] Start: 01-08-2023 End: 01-08-2023 Patient encounter procedure No Primary Care Physician [facility] Start: 01-05-2023 End: 01-05-2023 ambulatory MD NO PRIMARY CARE [facility] Start: 01-01-2023 End: 01-01-2023 Patient encounter procedure No Primary Care Physician [facility] Start: 12-29-2022 End: 12-29-2022 ambulatory MD NO PRIMARY CARE [facility] Start: 12-25-2022 End: 12-25-2022 ambulatory MD NO PRIMARY CARE [facility] Start: 12-22-2022 End: 12-22-2022 Patient encounter procedure No Primary Care Physician [facility] Start: 12-18-2022 End: 12-18-2022 ambulatory MD NO PRIMARY CARE [facility] Start: 12-15-2022 End: 12-15-2022 Patient encounter procedure No Primary Care Physician [facility] Start: 12-15-2022 End: 12-15-2022 Patient encounter procedure No Primary Care Physician [facility] Start: 12-11-2022 End: 12-11-2022 ambulatory No Primary Care Physician [facility] Work Phone: Start: 12-11-2022 End: 12-11-2022 Patient encounter procedure No Primary Care Physician [facility] Start: 12-02-2022 End: 12-02-2022 Patient encounter procedure No Primary Care Physician [facility] Start: 11-12-2022 End: 11-12-2022 Patient encounter procedure No Primary Care Physician [facility] Start: 11-12-2022 End: 11-12-2022 Patient encounter procedure No Primary Care Physician [facility] Start: 11-04-2022 End: 11-04-2022 Patient encounter procedure No Primary Care Physician [facility] Start: 10-20-2022 End: 10-20-2022 ambulatory MD NO PRIMARY CARE [facility] Start: 10-07-2022 End: 10-07-2022 ambulatory EXECUTIVE ASSOCIATE-Conner Seay EXECUTIVE ASSOCIATE Work Phone: [facility] Work Phone: Start: 10-07-2022 End: 10-07-2022 Patient encounter procedure EXECUTIVE ASSOCIATE-Conner Seay EXECUTIVE ASSOCIATE Work Phone: [facility] Start: 09-12-2022 End: 09-12-2022 Patient encounter procedure EXECUTIVE ASSOCIATEBessie Seay EXECUTIVE ASSOCIATE Work Phone: [facility] Start: 09-03-2022 End: 09-03-2022 Emergency department patient visit DO Rosendo Villa Facility:[id number] Start: 08-26-2022 End: 08-26-2022 Patient encounter procedure EXECUTIVE ASSOCIATE-Conner Seay EXECUTIVE ASSOCIATE Work Phone: [facility] Start: 08-14-2022 End: 08-14-2022 ambulatory EXECUTIVE ASSOCIATE-C Jim Seay EXECUTIVE ASSOCIATE Work Phone: [facility] Work Phone: Start: 08-14-2022 End: 08-14-2022 Patient encounter procedure EXECUTIVE ASSOCIATE-C Jim Seay EXECUTIVE ASSOCIATE [facility] Start: 08-14-2022 End: 08-14-2022 Patient encounter procedure EXECUTIVE ASSOCIATE-Conner Seay EXECUTIVE ASSOCIATE Work Phone: [facility] Start: 08-05-2022 End: 08-05-2022 ambulatory [facility] Work Phone: Start: 08-05-2022 End: 08-05-2022 [facility] Start: 02-13-2022 NPV, Provider: Mary Jane Juarez, Status: Pen, Time: 2:30 PM Jim Seay Work Phone: [facility] Work Phone: Start: 02-12-2022 Office outpatient visit 15 minutes Jmi Seay Work Phone: [facility] 205 DO Work Phone: Start: 02-12-2022 Patient encounter procedure Jim Seay Work Phone: [facility] Work Phone: Start: 10-03-2021 Office outpatient visit 15 minutes Jim Seay Work Phone: [facility] 205 DO Work Phone: Start: 04-17-2021 Periodic preventive med est patient 18-39 yrs Jim Seay Work Phone: [facility] Work Phone: Start: 03-05-2021 End: 03-05-2021 [facility] Start: 03-05-2021 End: 03-05-2021 Patient encounter procedure Shanta Oconnell MD Work Phone: [facility] Comment on above: Chronic pain of both wrists Start: 01-11-2021 End: 01-11-2021 Transcribe Orders Jim Seay [facility] Work Phone: [facility] Comment on above: Chronic pain of both wrists (Primary Dx) Start: 03-19-2020 Patient encounter procedure Jim Seay [facility] Work Phone: Start: 12-21-2019 Patient encounter procedure Jim Seay [facility] Work Phone: Start: 06-23-2019 End: 06-27-2019 Patient encounter procedure LUIS LINDQUIST [facility] Start: 05-03-2018 Patient encounter Luis Lindquist [facility] ility:[place] Start: 09-06-2017 Ambulatory LLOYD [facility] Procedures Date Procedure Procedure Detail Performing Clinician Start: 03-13-2023 Diagnostic radiograp hy of abdomen No Primary Care Physician Start: 02-19-2023 Group B Streptococcu s Culture No Primary Care Physician Start: 02-10-2023 Urine culture No Primar y Care Physician Start: 08-05-2022 Microscopic observat ion [Identifier] in Cervix by Cyto stain Raphael X-Ray Start: 04-17-2021 Follow-up visit Start: 06-23-2019 Adult depression scr eening assessment Shanta Oconnell MD Work Phone: [facility] Streptococcu s Culture No Primary Care Physician Investigation of transfusion reaction No Primary Care Physician Tonsillectomy and adenoidectomy Jim Seay Urine culture Urine culture EXECUTIVE ASSOCIATE-C Jim mullinsbrijeshdorian EXECUTIVE ASSOCIATE Work Phone: Urine culture EXECUTIVE ASSOCIATE-C Jim mullinsbrijeshdorian EXECUTIVE ASSOCIATE Work Phone: Urine culture EXECUTIVE ASSOCIATE-C Jim carlin EXECUTIVE ASSOCIATE Work Phone: Urine culture No Primary Car e Physician Plan of Treatment Date Care Activity Detail Author Start: 2048 Zoster Vaccines (1 of 2) Zoste r Vaccines (1 of 2) [facility] Start: 08-18-2030 DTaP/Tdap/Td Vaccine s (8 - Td or Tdap) DTaP/Tdap/Td Vaccines (8 - Td or Tdap) [facility] Start: 08-05-2025 Screening for malign ant neoplasm of cervix [facility] Start: 05-17-2025 End: 05-17-2025 Patient encounter procedure 05/17/2025 1:00 PM EDT Office Visit [facility] [address] [place] [id number] Ursula Rosas PA-C [address] [place] [address] [facility] Start: 05-15-2025 Influenza vaccination Influenza Vacc ine (#1) [facility] Start: 03-22-2025 End: 03-22-2026 CBC W Auto Differential panel - Blood CBC and Auto Differential Lab Routine CHARO (generalized anxiety disorder) Depression, major, recurrent, mild Fatigue, unspecified type Heart palpitations Encounter for wellness examination in adult Expected: 03/22/2025 (Approximate), Expires: 03/22/2026 [facility] Service Area Work Phone: Comment on above: Expected: 03/22/2025 (Approximate), Expires: 03/22/2026 Start: 03-22-2025 End: 03-22-2026 Comprehensive metabolic 2000 panel - Serum or Plasma Comprehensive Metabolic Panel Lab Routine CHARO (generalized anxiety disorder) Depression, major, recurrent, mild Fatigue, unspecified type Heart palpitations Encounter for wellness examination in adult Expected: 03/22/2025 (Approximate), Expires: 03/22/2026 [facility] Work Phone: Comment on above: Expected: 03/22/2025 (Approximate), Expires: 03/22/2026 Start: 03-22-2025 End: 03-22-2026 Ferritin [Mass/volume] in Serum or Plasma Ferritin Lab Routine History of iron deficiency CHARO (generalized anxiety disorder) Depression, major, recurrent, mild Fatigue, unspecified type Heart palpitations Encounter for wellness examination in adult Expected: 03/22/2025 (Approximate), Expires: 03/22/2026 [facility] Work Phone: Comment on above: Expected: 03/22/2025 (Approximate), Expires: 03/22/2026 Start: 03-22-2025 End: 03-22-2026 Iron and Iron binding capacity panel - Serum or Plasma Iron and TIBC Lab Routine History of iron deficiency CHARO (generalized anxiety disorder) Depression, major, recurrent, mild Fatigue, unspecified type Heart palpitations Encounter for wellness examination in adult Expected: 03/22/2025 (Approximate), Expires: 03/22/2026 [facility] Work Phone: Comment on above: Expected: 03/22/2025 (Approximate), Expires: 03/22/2026 Start: 03-22-2025 End: 03-22-2026 Magnesium [Mass/volume] in Serum or Plasma Magnesium Lab Routine CHARO (generalized anxiety disorder) Depression, major, recurrent, mild Fatigue, unspecified type Heart palpitations Encounter for wellness examination in adult Expected: 03/22/2025 (Approximate), Expires: 03/22/2026 [facility] Work Phone: Comment on above: Expected: 03/22/2025 (Approximate), Expires: 03/22/2026 Start: 03-22-2025 End: 03-22-2026 Thyrotropin [Units/volume] in Serum or Plasma Thyroid Stimulating Hormone Lab Routine CHARO (generalized anxiety disorder) Depression, major, recurrent, mild Fatigue, unspecified type Heart palpitations Encounter for wellness examination in adult Expected: 03/22/2025 (Approximate), Expires: 03/22/2026 [facility] Work Phone: Comment on above: Expected: 03/22/2025 (Approximate), Expires: 03/22/2026 Start: 03-22-2025 End: 03-22-2026 Thyroxine (T4) free [Mass/volume] in Serum or Plasma Thyroxine, Free Lab Routine CHARO (generalized anxiety disorder) Depression, major, recurrent, mild Fatigue, unspecified type Heart palpitations Encounter for wellness examination in adult Expected: 03/22/2025 (Approximate), Expires: 03/22/2026 [facility] Work Phone: Comment on above: Expected: 03/22/2025 (Approximate), Expires: 03/22/2026 Start: 05-15-2024 COVID-19 Vaccine ( season) COVID-19 Vaccine () [facility] Start: 05-15-2024 Influenza vaccination Influenza Vacc ine (#1) [facility] Start: 03-21-2023 Patient referral [facility] Work Phone: Start: 03-11-2023 Patient referral [facility] Work Phone: Start: 03-08-2023 Patient discharge [facility] Start: 03-07-2023 Application of abdom inal corset [facility] Start: 03-07-2023 Consultation [facility] Start: 03-06-2023 Administration of medication [facility] Start: 03-06-2023 Ambulation therapy management [facility] Start: 03-06-2023 Application of device [facility] Start: 03-06-2023 Application of intermittent pneumatic compression device [facility] Start: 03-06-2023 Assessment of risk o f venous thromboembolism [facility] Start: 03-06-2023 Catheterization of vein [facility] Start: 03-06-2023 Deep breathing and coughing exercises [facility] Start: 03-06-2023 Exercises [facility] Start: 03-06-2023 Incentive spirometry [facility] Start: 03-06-2023 Measuring intake and output [facility] Start: 03-06-2023 Notification of physician [facility] Start: 03-06-2023 Procedure discontinued [facility] Start: 03-06-2023 Provision of activit y privileges [facility] Start: 03-06-2023 Vital signs measurements [facility] Start: 03-06-2023 Wound care [facility] Start: 03-06-2023 Application of abdom inal corset [facility] Start: 03-06-2023 End: 03-06-2023 [facility] Start: 03-05-2023 Admission procedure [facility] Start: 12-22-2022 Patient referral [facility] Work Phone: Start: 05-02-2022 Yearly Adult Physical Yearly Adult P hysical [facility] Start: 05-01-2022 NPV, Provider: Mary Jane Juarez, Status: Pen, Time: 9:00 AM NPV, Provider: Mary Jane Juarez, Status: Pen, Time: 9:00 AM [facility] Work Phone: Start: 11-28-2021 Screening for Chlamy kings trachomatis Chlamydia Screening [facility] Start: 05-15-2021 Influenza vaccination Sequenti al Influenza Vaccine (Season Ended) [facility] Start: 04-21-2021 Tetanus vaccination Tetanus: Every 1 0yrs [facility] Start: 02-28-2021 End: 02-28-2021 Patient encounter procedure [facility] Start: 06-23-2020 Depression screening using PHQ-9 (Patient Health Questionnaire 9) score Depression Screening (PHQ9) [facility] Start: 05-15-2020 Influenza vaccination Sequenti al Influenza Vaccine (#1) [facility] Start: 11-30-2019 Screening for malign ant neoplasm of cervix HPV/Cotest [facility] Start: 2016 Hepatitis C screening Hepatitis C Sc [facility] Start: 2014 COVID-19 Vaccine (1) COVID-19 Vaccin e (1) [facility] Start: 2013 HPV Vaccines (1 - 3- dose series) HPV Vaccines (1 - 3-dose series) [facility] Start: 11-30-2011 Varicella vaccination Varicell a Vaccines (1 of 2 - 13+ 2-dose series) [facility] Start: 2010 COVID-19 Vaccine (1) COVID-19 Vaccin e (1) [facility] Start: 2010 Depression screening using PHQ-9 (Patient Health Questionnaire 9) score Depression Screening (PHQ9) [facility] Start: 2009 Vaccination for sasha n papillomavirus HPV Vaccines (1 - 2-dose series) [facility] Start: 2001 History and physical examination, annual for health maintenance Wellness Visit [facility] Start: 1998 Lipid panel Lipid Panel [facility] Start: 1998 Screening for malign ant neoplasm of cervix Pap Smear [facility] Start: 1998 Yearly Adult Physical Yearly Adult P [facility] CBC W Auto Different ial panel - Blood [facility] Work Phone: Chlamydia deoxyribon ucleic acid detection [facility] Work Phone: Chlamydia deoxyribon ucleic acid detection [facility] Hepatitis B surface antigen measurement [facility] Work Phone: Hepatitis C antibody measurement [facility] Work Phone: HIV 1+2 Ab+HIV1 p24 Ag [Presence] in Serum or Plasma by Immunoassay [facility] Work Phone: Path report.final Dx Spec [facility] Work Phone: Patient Education ED Diet Vomiti ng Diarrhea ED Vomiting (Adult) [facility] Work Phone: Patient referral [facility] Work Phone: Rubella IgG measurement [facility] Work Phone: Treponema sp Ab [Pre sence] in Serum [facility] Work Phone: End: 08-29-2024 XR Ankle - left 3 Views [facility] Service Are a Work Phone: Comment on above: Once for 1 Occurrenc es starting 08/29/2024 until 08/29/2024 [facility] Immunizations Immunization Date Immunization Notes Care Provider Mike ortiz 03-12-2021 tuberculin skin test ; purified protein derivative solution, intradermal Ursula Abrahamall PA-C Work Phone: [facility] Work Phone: 08-18-2020 tetanus toxoid, redu jacob diphtheria toxoid, and acellular pertussis vaccine, adsorbed Ursula Alison PA-C Work Phone: [facility] Work Phone: 02-29-2016 meningococcal polysaccharide (groups A, C, Y and W-135) diphtheria toxoid conjugate vaccine (MCV4P) Ursula Rosas PA-C Work Phone: [facility] Work Phone: 04-21-2011 tetanus toxoid, redu jacob diphtheria toxoid, and acellular pertussis vaccine, adsorbed Ursula Abrahamall PA-C Work Phone: [facility] Work Phone: 02-22-2004 diphtheria, tetanus toxoids and acellular pertussis vaccine Ursula Alison PA-C Work Phone: [facility] Work Phone: 02-22-2004 measles, mumps and rubella virus vaccine Ursula Alison PA-C Work Phone: [facility] Work Phone: 02-22-2004 poliovirus vaccine, inactivated Ursula [place] PA-C Work Phone: [facility] Work Phone: 06-02-2000 diphtheria, tetanus toxoids and acellular pertussis vaccine Ursula [place] PA-C Work Phone: [facility] Work Phone: 06-02-2000 poliovirus vaccine, inactivated Ursula Alison PA-C Work Phone: [facility] Work Phone: 12-18-1999 haemophilus influenz ae type b vaccine, PRP-T conjugate Ursula Rosas PA-C Work Phone: [facility] Work Phone: 12-18-1999 measles, mumps and rubella virus vaccine Ursula Rosas PA-C Work Phone: [facility] Work Phone: 06-03-1999 diphtheria, tetanus toxoids and acellular pertussis vaccine Ursula Rosas PA-C Work Phone: [facility] Work Phone: 06-03-1999 haemophilus influenz ae type b vaccine, PRP-T conjugate Ursula Mahanenhall PA-C Work Phone: [facility] Work Phone: 06-03-1999 hepatitis B vaccine, pediatric or pediatric/adolescent dosage Ursula Rosas PA-C Work Phone: [facility] Work Phone: 04-01-1999 diphtheria, tetanus toxoids and acellular pertussis vaccine Ursula Rosas PA-C Work Phone: [facility] Work Phone: 04-01-1999 haemophilus influenz ae type b vaccine, PRP-T conjugate Ursula Rosas PA-C Work Phone: [facility] Work Phone: 04-01-1999 poliovirus vaccine, inactivated Ursula Rosas PA-C Work Phone: [facility] Work Phone: 01-28-1999 diphtheria, tetanus toxoids and acellular pertussis vaccine Ursula Rosas PA-C Work Phone: [facility] Work Phone: 01-28-1999 haemophilus influenz ae type b vaccine, PRP-T conjugate Ursula Mahanenhall PA-C Work Phone: [facility] Work Phone: 01-28-1999 hepatitis B vaccine, pediatric or pediatric/adolescent dosage Ursula THAKUR-C Work Phone: [facility] Work Phone: 01-28-1999 poliovirus vaccine, inactivated Ursula Rosas PA-C Work Phone: [facility] Work Phone: 1998 hepatitis B vaccine, pediatric or pediatric/adolescent dosage Ursula THAKUR-C Work Phone: [facility] Work Phone: Payers Date Payer Category Payer Self-pay [id number] 2024 Managed Care (Private) [facility] [id number] 2024 Private Health Insurance [id number] 2015 Medicaid [facility] MEDICAID [employer] [id number] 2015-Present [id number] 2015 Unknown [id number] 2015 Unknown [id number] 1998 Unknown [id number] [id number]. 1069 1998 Unknown [id number] 2.16.840.1.438740.3.579.2. 479 1998 Unknown [id number] 2.16.840.1.612371.3.579.2 479 1998 Unknown [id number] 2.16.840.1.118868.3.579.2 47 1998 Unknown [id number] 2.16.840.1.698745.3.579.2 47 1998 Unknown [id number] 2.16.840.1.393634.3.579.2 47 1998 Unknown [id number] 2.16.840.1.284292.3.579.2 47 1998 Unknown [id number] 2.16.840.1.317352.3.579.2 47 1998 Unknown [id number] 2.16.840.1.817925.3.579.2 47 1998 Unknown [id number] 2.16.840.1.186769.3.579.2 1998 Unknown [id number] 2.16.840.1.327094.3.579.2 47 1998 Unknown [id number] 2.16.840.1.043433.3.579.2 47 1998 Unknown [id number] 2.16.840.1.850467.3.579.2 47 1998 Unknown [id number] 2.16.840.1.468794.3.579.2 47 1998 Unknown [id number] 2.16.840.1.892883.3.579.2. 1243 09-14-1840 Unknown [id number] 2.16.840.1.214214.3.579.2. 903 09-14-1840 Unknown [id number] 2.16.840.1.018347.3.579.2. 900 09-14-1840 Unknown [id number] 2.16.840.1.067493.3.579.2. 902 Medicaid [place] [id number] Effective for all dates [id number]. [id number] Unknown [employer] Unknown [employer] [place] [id number] Unknown [id number] 2.16.840.1.903155.3.579.2. 462 Unknown [id number] 2.16.840.1.546433.3.579.2. 462 Social History Date Type Detail Facility Start: 11-28-2020 End: 03-22-2025 Tobacco smoking status NHIS Never smoker [facility] Start: 11-28-2020 End: 03-22-2025 Tobacco use and exposure Never used [facility] Start: 11-28-2020 End: 03-05-2021 Alcohol intake Current drinker of alcohol (finding) [facility] Start: 11-28-2020 History SDOH Alcohol Frequency 2 [facility] Start: 1998 Sex Assigned At Not on file [facility] Start: 08-19-2024 End: 08-29-2024 Exposure to SARS-CoV-2 (event) Not sure [facility] Start: 03-22-2025 Occasional alcohol use Occasional alcohol use [facility] Work Phone: Start: 08-01-2022 End: 03-20-2023 Tobacco smoking status NHIS Unknown if ever smoked [facility] Start: 1998 Sex Assigned At Female [facility] Start: 03-22-2025 Gender identity Not on file [facility] Work Phone: NEGATED: Highlighted row - - [facility] Work Phone: NEGATED: Highlighted row [facility] Goals Date Patient Goal Desired Activity /State Comment on above: Condom use for STI p rotection Formatting of this n ote might be different from the original. Condom use for STI protection Functional Status Date Assessment Result Facility 03-22-2025 Patient Health Questionnaire 2 item (PHQ-2) [Reported] [facility] Work Phone: NEGATED: Highlighted row Functional performance Functional status health issues are not documented Disease [facility] Work Phone: Mental Status Date Assessment Result Facility 03-07-2023 Cognitive function Level Of Cons ciousness Awake;Alert;Appropriate [facility] Work Phone: NEGATED: Highlighted row Cognitive function [Interpretation] Cognitive status health issues are not documented Disease [facility] Work Phone: Clinical Notes 03-05-2021 to 03-22-2025 Ursula Rosas PA-C - 03/22/2025 10:40 AM EDT Note Date & Type Note Facility 03-22-2025 History of Present illness Narrative Subjective Patient ID: Markel Lan is a 24 y.o. female who presents for Establish Care (ESTABLISH NEW PT/PT JUST FOUND OUT THAT SHE IS ) HPI Est as new patient Recently discovered she is - following with [facility] and visit in the near future She has had some office symptoms but now wondering if its bc of preg Due for gen labs Fatigue Heart palp x 1 month - feels like she can have when she is relaxed or anxious. - episode can last seconds. She was noting spells daily but now noticing less often - maybe 1 time every other day No known alleviating factors given it goes away in sec Denies excess caffeine - no more than 1/day Off feeling in the evening prior to dinner as well We discussed checking BS, BP Suggest updated labs as iron def and thyroid can cause some of the symptoms Pending labs and symptoms we discussed EKG in addition to monitor and echo as well Med check Allergies on zyrtec Depression /Anxiety - feels more anxiety - on zoloft Wellbutrin - extreme numb feeling and was hospitalized Buspar - prn Iron def anemia Preventative testing Fall Phq2 - NEG - known depression and anxiety - stable on meds PAP- [employer] [facility] - [facility] Colon - suggest age 43 Mammo - mom breast cancer age 39 - suggest screening age 29/30 DEXA Problem List[1] Review of Systems Constitutional: Positive for fatigue. Negative for chills and fever. HENT: Negative for congestion, rhinorrhea, sinus pain, sore throat and tinnitus. Eyes: Negative for discharge, redness and visual disturbance. Respiratory: Negative for cough, chest tightness, shortness of breath and wheezing. Cardiovascular: Positive for palpitations. Negative for chest pain and leg swelling. Gastrointestinal: Negative for abdominal pain, constipation, diarrhea, nausea and vomiting. Endocrine: Negative for cold intolerance and heat intolerance. Genitourinary: Negative for flank pain, frequency and urgency. Musculoskeletal: Negative for back pain, gait problem and neck pain. Skin: Negative for rash and wound. Neurological: Negative for dizziness, tremors, syncope, numbness and headaches. Hematological: Does not bruise/bleed easily. Psychiatric/Behavioral: Positive for dysphoric mood. Negative for confusion, sleep disturbance and suicidal ideas. The patient is nervous/anxious. Medical History[2] Surgical History[3] Family History[4] Social History[5] Allergies[6] Current Medications[7] Objective BP 130/84 Pulse 86 Ht 1.651 m (5' 5) Wt 87.5 kg (192 lb 12.8 oz) BMI 32.08 kg/m Physical Exam Vitals reviewed. Constitutional: Appearance: Normal appearance. She is obese. HENT: Head: Normocephalic. Right Ear: External ear normal. Left Ear: External ear normal. Nose: Nose normal. No congestion or rhinorrhea. Mouth/Throat: Mouth: Mucous membranes are moist. Eyes: Extraocular Movements: Extraocular movements intact. Conjunctiva/sclera: Conjunctivae normal. Pupils: Pupils are equal, round, and reactive to light. Cardiovascular: Rate and Rhythm: Normal rate and regular rhythm. Pulses: Normal pulses. Pulmonary: Effort: Pulmonary effort is normal. Breath sounds: Normal breath sounds. Abdominal: General: Bowel sounds are normal. Palpations: Abdomen is soft. Tenderness: There is no abdominal tenderness. There is no right CVA tenderness or left CVA tenderness. Musculoskeletal: General: No tenderness. Normal range of motion. Cervical back: Normal range of motion and neck supple. No tenderness. Skin: General: Skin is warm and dry. Neurological: General: No focal deficit present. Mental Status: She is alert and oriented to person, place, and time. Psychiatric: Mood and Affect: Mood normal. Behavior: Behavior normal. Testing Impression MDM 1) COMPLEXITY: 1 UNDIAGNOSED NEW PROBLEM WITH UNCERTAIN PROGNOSIS 2)DATA: TESTS INTERPRETED AND OR ORDERED, TOOK INDEPENDENT HISTORY OR RECORDS REVIEWED 3)RISK: MODERATE RISK DUE TO NATURE OF MEDICAL CONDITIONS/COMORBIDITY OR MEDICATIONS ORDERED OR SURGICAL OR PROCEDURE REFERRAL, . Reviewed labs and Testing on file Patient to follow diet low in cholesterol, fat, and sodium. Patient is advised to increase Exercise. Patient is recommended to lose weight. Reviewed Meds and discussed common side effects Continue as directed Patient is strongly advised to be compliant with recommendations. Return to Clinic sooner if needed. Patient denies further questions/concerns at this time Assessment/Plan Problem List Items Addressed This Visit ICD-10-CM Depression, major, recurrent, mild F33.0 Relevant Medications sertraline (Zoloft) 50 mg tablet Other Relevant Orders CBC and Auto Differential Comprehensive Metabolic Panel Thyroid Stimulating Hormone Thyroxine, Free Iron and TIBC Ferritin Magnesium History of iron deficiency Z86.39 Relevant Orders Iron and TIBC Ferritin CHARO (generalized anxiety disorder) F41.1 Relevant Orders CBC and Auto Differential Comprehensive Metabolic Panel Thyroid Stimulating Hormone Thyroxine, Free Iron and TIBC Ferritin Magnesium Seasonal allergies J30.2 Other Visit Diagnoses Codes Encounter to establish care with new doctor - Primary Z76.89 Fatigue, unspecified type R53.83 Relevant Orders CBC and Auto Differential Comprehensive Metabolic Panel Thyroid Stimulating Hormone Thyroxine, Free Iron and TIBC Ferritin Magnesium Heart palpitations R00.2 Relevant Orders CBC and Auto Differential Comprehensive Metabolic Panel Thyroid Stimulating Hormone Thyroxine, Free Iron and TIBC Ferritin Magnesium Encounter for wellness examination in adult Z00.00 Relevant Orders CBC and Auto Differential Comprehensive Metabolic Panel Thyroid Stimulating Hormone Thyroxine, Free Iron and TIBC Ferritin Magnesium Class 1 obesity due to excess calories without serious comorbidity with body mass index (BMI) of 32.0 to 32.9 in adult E66.811, E66.09, Z68.32 FU in 2-8 weeks with wellness labs fasting and med check Print orders [1] Patient Active Problem List Diagnosis Congenital fusion of cervical spine Depression Genital warts History of iron deficiency Cervical radiculitis Lumbar radiculitis Persistent adjustment disorder with mixed anxiety and depressed mood Wrist pain, chronic [2] Past Medical History: Diagnosis Date Other specified health status No pertinent past medical history [3] Past Surgical History: Procedure Laterality Date ADENOIDECTOMY SECTION, LOW TRANSVERSE 02/2023 TONSILLECTOMY [4] Family History Problem Relation Name Age of Onset Breast cancer Mother Fibromyalgia Mother No Known Problems Father [5] Social History Tobacco Use Smoking status: Never Smokeless tobacco: Never Vaping Use Vaping status: Former Substances: Nicotine, Flavoring Devices: Disposable [6] No Known Allergies [7] Current Outpatient Medications Medication Sig Dispense Refill cetirizine (ZyrTEC) 10 mg tablet Take 1 tablet (10 mg) by mouth once daily. sertraline (Zoloft) 50 mg tablet Take 1 tablet (50 mg) by mouth once daily. No current facility-administered medications for this visit. documented in this encounter [facility] Work Phone: 03-08-2023 Discharge summary Note Date/Time March 08, 2023 7:59 am [facility] Medical Records Department [address] [place] [id number] Instructions for Home/Discharge Instructions 03/08/23 0758 MR#: [id number] Acct: [id number] Name: MARKEL LAN CATHRYN Rep #:[id number] : 2000 22 From: Raisa Hawkins CNM PCP: Care Physician,No Primary Status :ADM IN Discharge Instructions Diet Discharge Diet: No restrictions Activity May shower in (days): 0 May resume sexual activity in: 4-6 weeks Weight Bearing Status: Full weight bearing Dressing / Incision Call your doctor if your incision/area has: Continuous Slow Oozing, Sudden Increased Bleeding, Increased Pain/ Swelling, Increased Redness and Foul Smelling Discharge Call your doctor if you observe: Fever of 101 or Higher and Using more than 1 pad per hour (for 2 hours) Suture Line Care: Avoid Pulling/Pushing and Avoid Pinching/Bending Cleanse incision/area with: Soap & Water and Keep Dressing Clean & Dry Follow Up Care Please Follow Up With: Fatmata Arteaga MD Test Results: Test results from this visit will be discussed in further detail at your follow-up appointment, if applicable. Discharge Plan Admission Admit Date/Time: 03/05/23 17:05 Attending Provider: Fatmata Arteaga Primary Care Provider: Care Physician,No Primary Discharge Orders/Prescriptions Prescriptions: New oxycodone-acetaminophen [Percocet] 5-325 mg tablet 1 tab PO Q6H PRN (Reason: pain) 7 Days Qty: 20 0RF naproxen [naproxen] 500 mg tablet 500 mg PO BID PRN PRN (Reason: Pain) Qty: 30 1RF Continued PNV-Whiting 28-1-300 mg capsule 1 cap PO DAILY Zyrtec 10 mg capsule 10 mg PO DAILY PRN (Reason: allergies) Referrals / Follow Up: Care Physician,No Primary [Primary Care Provider] - Disposition Disposition (needs filled in before D/C Order can be placed): Home, Self Care 03/08/23 0759<Electronically signed by Raisa Hawkins CNM>Raisa Hawkins CNM CC: No Primary Care Physician ~ Signed [facility] Work Phone: 1(617) 821-732806-25-2023 Progress note Author Raisa Hawkins [facility] March 08, 2023 7:58am Note Date/Time March 08, 2023 7:58 am [facility] Medical Records Department [address] [place] [address] Progress Note - OBGYN 03/08/23 0756 MR#: [id number] Acct: [id number] Name: MARKEL LAN CATHRYN Rep #:[id number] : 2000 22 From: Raisa Hawkins CNM PCP: Care Physician,No Primary Status :ADM IN Location: [place] [address] Subjective Subjective Patient doing well without complaints. Tolerating PO. Ambulating and voiding without difficulty. Feeding well. Denies chest pain, shortness of breath, calf pain/swelling, fevers, chills, lightheadedness. Objective Data Objective Data Vital Signs: Vital Signs Temp Pulse Resp BP Pulse Ox O2 Del Method 97.3 F L 86 18 126/76 H 98 Room Air 03/08/23 07:35 03/08/23 07:37 03/08/23 07:35 03/08/23 07:35 03/08/23 07:37 03/08/23 07:35 Oxygen Delivery Method Room Air Weight: 201 lb 6 oz Body Mass Index (BMI) 34.5 Intake & Output: Intake and Output for Last 24 Hours 03/06/23 03/07/23 03/08/23 23:59 23:59 23:59 Intake Total 3189.85 / 3189.85 1171.67 / 1171.67 Output Total 1550 / 1550 850 / 850 Balance 1639.85 / 1639.85 321.67 / 321.67 Lab / Micro Data Attestation: I reviewed the patient's lab results. Result Diagrams: 03/07/23 05:40 ROS Constitutional Constitutional: Reports systems reviewed and no addt'l complaints, except as documented; Denies anorexia or headache(s) Cardiovascular Cardiovascular: Reports systems reviewed and no addt'l complaints, except as documented; Denies dizziness, dyspnea, nausea or tachypnea Respiratory/Chest Respiratory/Chest: Reports systems reviewed and no addt'l complaints, except as documented; Denies cough, dyspnea, shortness of breath at rest or tachypnea Gastrointestinal Gastrointestinal: Reports systems reviewed and no addt'l complaints, except as documented; Denies abdominal pain, constipation or nausea Genitourinary Genitourinary: Reports systems reviewed and no addt'l complaints, except as documented; Denies burning urination, difficulty urinating, dysuria, urinary frequency or urinary incontinence Musculoskeletal Musculoskeletal: Reports systems reviewed and no addt'l complaints, except as documented Integumentary Integumentary: Reports systems reviewed and no addt'l complaints, except as documented Neurologic Neurologic: Reports systems reviewed and no addt'l complaints, except as documented; Denies abnormal speech, dizziness or headache(s) Psychiatric Psychiatric: Reports systems reviewed and no addt'l complaints, except as documented Endocrine Endocrinology: Reports systems reviewed and no addt'l complaints, except as documented Hematologic/Lymphatic Hematologic/Lymphatic: Reports systems reviewed and no addt'l complaints, exceptas documented Physical Exam Const alert, oriented x3 and no apparent distress Neck full ROM Resp normal respiratory effort, normal air movement and no retractions Effort and Inspection: able to speak in complete sentences and symmetric chest movement GI soft to palpation Inspection: incision intact Bladder / Kidney Exam: bladder normal to palpation Uterus Palpation: uterus fundus firm Extremity normal to inspection and full ROM Psych mental status grossly normal, thought process normal and cooperative Assessment & Plan (1) delivery delivered: COMMENT: SM/KW IOL IUGR recurrent decels cat II 7 cm LTCS PLAN: s/p LTCS PPD # 2 1. routine post care 2. breast feeding- support given 3. rh positive 4. rubella immune 5. 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 03-07-2023 Progress note Author Raisa Hawkins [facility] March 07, 2023 8:34am Note Date/Time March 07, 2023 8:34 am [facility] Medical Records Department [address] [place] [address] Progress Note - OBGYN 03/07/23 0833 MR#: [id number] Acct: [id number] Name: MARKEL LAN CATHRYN Rep #:[id number] : 2000 22 From: Raisa Hawkins CNM PCP: Care Physician,No Primary Status :ADM IN Location: [place] [address] Subjective Subjective Patient doing well without complaints. Tolerating PO. Ambulating and voiding without difficulty. Feeding well. Denies chest pain, shortness of breath, calf pain/swelling, fevers, chills, lightheadedness. Objective Data Objective Data Vital Signs: Vital Signs Temp Pulse Resp BP Pulse Ox O2 Del Method 97.0 F L 85 18 114/59 L 98 Room Air 03/07/23 05:39 03/07/23 08:00 03/07/23 05:39 03/07/23 08:00 03/07/23 08:00 03/07/23 05:39 Oxygen Delivery Method Room Air Weight: 201 lb 6 oz Body Mass Index (BMI) 34.5 Intake & Output: Intake and Output for Last 24 Hours 03/05/23 03/06/23 03/07/23 23:59 23:59 23:59 Intake Total 3189.85 / 3189.85 615 / 615 Output Total 1550 / 1550 600 / 600 Balance 1639.85 / 1639.85 Lab / Micro Data Attestation: I reviewed the patient's lab results. Result Diagrams: 03/07/23 05:40 Labs: Laboratory Results - last 24 hr 03/07/23 05:40: WBC 14.7 H, RBC 3.64 L, Hgb 10.3 L, Hct 31.3 L, MCV 86.0, MCH 28.3, MCHC 32.9, RDW Std Deviation 43.2, RDW Coeff of Grace 14.0, Plt Count 229, MPV 9.7 ROS Constitutional Constitutional: Reports systems reviewed and no addt'l complaints, except as documented; Denies anorexia or headache(s) Cardiovascular Cardiovascular: Reports systems reviewed and no addt'l complaints, except as documented; Denies dizziness, dyspnea, nausea or tachypnea Respiratory/Chest Respiratory/Chest: Reports systems reviewed and no addt'l complaints, except as documented; Denies cough, dyspnea, shortness of breath at rest or tachypnea Gastrointestinal Gastrointestinal: Reports systems reviewed and no addt'l complaints, except as documented; Denies abdominal pain, constipation or nausea Genitourinary Genitourinary: Reports systems reviewed and no addt'l complaints, except as documented; Denies burning urination, difficulty urinating, dysuria, urinary frequency or urinary incontinence Musculoskeletal Musculoskeletal: Reports systems reviewed and no addt'l complaints, except as documented Integumentary Integumentary: Reports systems reviewed and no addt'l complaints, except as documented Neurologic Neurologic: Reports systems reviewed and no addt'l complaints, except as documented; Denies abnormal speech, dizziness or headache(s) Psychiatric Psychiatric: Reports systems reviewed and no addt'l complaints, except as documented Endocrine Endocrinology: Reports systems reviewed and no addt'l complaints, except as documented Hematologic/Lymphatic Hematologic/Lymphatic: Reports systems reviewed and no addt'l complaints, exceptas documented Physical Exam Const alert, oriented x3 and no apparent distress Neck full ROM Resp normal respiratory effort, normal air movement and no retractions Effort and Inspection: able to speak in complete sentences and symmetric chest movement GI soft to palpation Inspection: incision intact Bladder / Kidney Exam: bladder normal to palpation Uterus Palpation: uterus fundus firm Extremity normal to inspection and full ROM Psych mental status grossly normal, thought process normal and cooperative Assessment & Plan (1) delivery delivered: COMMENT: SM/KW IOL IUGR recurrent decels cat II 7 cm LTCS (2) 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 03/07/23 0834 <Electronically signed by Raisa Hawkins CNM> Cosigner Signature (if applicable): CC: ~ Signed [facility] Work Phone: 1(264) 237-398106-23-2023 Progress note Author Raisa Hawkins [facility] March 06, 2023 5:52pm Note Date/Time March 06, 2023 5:51 pm [facility] Medical Records Department [address] [place] [address] Progress Note 03/06/23 1744 MR#: [id number] Acct: [id number] Name: LANMARKEL CHE CATHRYN Rep #:[id number] : 2000 22 From: Raisa Hawkins CNM PCP: Care Physician,No Primary Status :ADM IN Location: [place] [address] Progress Note comfortable with epidural current tracing: FHT: 140 Moderate variability reactive with stimulation, recurrent variables category II tracing Tat Momoli: 3-4 minute Contractions SVE: 5/70/-1 Pitocin at 6mu A/P: IUPC placed, plan for amnioinfusion continue to titrate pitocin continue position changes Dr Arteaga reviewed strip and agrees with plan of care. 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: (5) Supervision of high risk , antepartum: (6) : QUALIFIERS: Weeks of gestation: 38 weeks Qualified Code(s): Z3A.38 - 38 weeks gestation of (7) Anxiety: (8) Seasonal allergies: Procedures Urinary/Genital 52xxx-59xxx: No Charge 03/06/231751 <Electronically signed by Raisa Hawkins CNM> Raisa Hawkins CNM Cosigner Signature (if applicable): CC: ~ Signed [facility] Work Phone: 1(389) 529-283406-23-2023 Progress note Author Raisa Hawkins [facility] March 06, 2023 4:24pm Note Date/Time March 06, 2023 4:24 pm [facility] Medical Records Department [address] [place] [address] Progress Note 03/06/23 1620 MR#: [id number] Acct: [id number] Name: MARKEL LAN Rep #:[id number] : 2000 22 From: Raisa Hawkins CNM PCP: Care Physician,No Primary Status :ADM IN Location: [place] [address] Progress Note comfortable with epidural current tracing: FHT: 145 Moderate variability reactive no decelerations category II tracing Tat Momoli: 4-5 minute Contractions Pitocin: 4mu reviewed tracing abnormalities since last note: Reviewed strip with Dr Arteaga. Plan to continue pitocin titration A/P: continuous FHT continue pitocin titration per protocol continue position changes Anticipate Assessment & Plan Assessment/Plan (1) Encounter for induction of labor: (2) IUGR (intrauterine growth restriction) affecting care of mother: (3) Abnormal glucose in , antepartum: (4) ASCUS with 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: (5) Supervision of high risk , antepartum: (6) : QUALIFIERS: Weeks of gestation: 38 weeks Qualified Code(s): Z3A.38 - 38 weeks gestation of (7) Anxiety: (8) Seasonal allergies: Multi Select Codes Urinary/Genital Urinary/Genital CPT Codes: No Charge 03/06/231623 <Electronically signed by Raisa Hawkins CNM> Raisa Hawkins CNM Cosigner Signature (if applicable): CC: ~ Signed [facility] Work Phone: [phone]) 277-272706-23-2023 Progress note Author Raisa Hawkins [facility] March 06, 2023 7:46am Note Date/Time March 06, 2023 7:45 am [facility] Medical Records Department [address] [place] [address] Progress Note 03/06/23 0742 MR#: [id number] Acct: [id number] Name: MARKLE LAN #:[id number] : 2000 22 From: Raisa Hawkins CNM PCP: Care Physician,No Primary Status :ADM IN Location: [place] [address] Progress Note Doing well with contractions current tracing: FHT: 145 Moderate variability reactive no decelerations category I tracing Tat Momoli: moderate irregular Contractions SVE: 2/50/-2 Membranes: Intact A/P: Licona bulb placed start pitocin and titrate per protocol when appropriate AROM when appropriate continue position changes anticipate Multi Select Codes Urinary/Genital Urinary/Genital CPT Codes: No Charge 03/06/23 0745 <Electronically signed by Raisa Hawkins CNM> Raisa Hawkins CNM Cosigner Signature (if applicable): CC: ~ Signed ADDENDUM by TONJA Hawkins on 03/06/23 at 0746 Assessment & Plan (1) Encounter for induction of labor: COMMENT: cytotec IOL (2) IUGR (intrauterine growth restriction) affecting care of mother: COMMENT: - NST at [facility], Mondays- BPP every other week at [facility]-get NST on mondays when not getting BPP. Growth US 12/18/22 37% AC at 5%. Growth US every 2 weeks, umbilical artery doppler weekly and delivery depends on EFW%. consider delivery 38-39weeks per [facility], 01/12 growth 8% 6.5 AC now 10th% and considered resolved if still at 39 weeks will have another growth scan as of 02/23- [facility] recommending IOL at 39 weeks regardless due to h/o IUGR earlier in the . 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 NIPT low risk, carrier neg. anatomy reviewed. (7) Anxiety: COMMENT: not medicated; noting more anxiety, considering zoloft and will call for RX 03/06/23 0746 <Electronically signed by Raisa sparks CNM> Date _ Raisa Hawkins CNM Cosigner Signature (if applicable): Date cc: ~* Signed [facility] Work Phone: 1(880) 634-451906-23-2023 History and physical note Author Dr. 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 03/06/23 0158 MR#: [id number] Acct: [id number] Name: MARKEL LAN CATHRYN Rep #:[id number] : 2000 22 From: aFtmata burrows MD PCP: Care Physician,No Primary Status :ADM IN Location: [place] [id number] HPI - General General Date of Admission: 03/05/23 HPI Narrative MARKEL LAN, is a 22 F who presents for IOL secondary to IUGR, no vb lof admits good fm Maternal Data Information KATHI Calculator Estimated Delivery Date Method Current WG Current Estimate 03/12/23 LMP (Certain) 39w 1d Other Estimates 03/16/23 Ultrasound #1 38w 4d PFSH PFSH Medical History Depression Palpitations Home Medications cetirizine 10 mg capsule (Zyrtec) 10 mg PO DAILY PRN allergies 08/01/22 [History Last Taken Unknown] multivit-min no.71-iron fum 28 mg-folate no.1 1 mg-dha 300 mg capsule (PNV- Whiting) 1 cap PO DAILY 08/01/22 [History Last Taken Unknown] Allergy/AdvReac Type Severity Reaction Status Date / Time No Known Allergies Allergy Verified 02/26/23 08:44 Family History Mother Breast cancer, Onset Age: 40 not hereditary type of cancer Surgical History History of tonsillectomy and adenoidectomy Social History adopted: No household members: significant other housing: house current occupational status: employed 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 @ [employer] current occupational exposures/hazards: No pets and animals: Yes pets and animals: dog(s) history of recent travel: No sexually active: Yes Smoking Status: Former smoker quit date: 07/07/22 Smokeless tobacco user: other Electronic Cigarette Use: with nicotine quit status: quit date established counseling given: provider counseling alcohol intake: former details: socially prior to substance use type: does not use well-balanced diet: about half the time caffeine: Yes Type: carbonated beverages Number of servings: 1 eating out: 1-3 times/week during the past year weight has: remained stable what type of physical activity do you participate in: none sarwat/anglican: None seatbelt use: sometimes do you feel safe at home: Yes additional social history: BF/FOB [employer] History 1 Elective abortions Hx Para 0 Spontaneous abortions Hx # Term Pregnancies Ectopic pregnancies Hx # Pregnancies Multiple births # of living children Visit Details Expected Delivery Route/Plan Labor Preferences- CB/BF classes: [] labor support person: [] labor intervention preferences: [] pain management options preferred: [] cut cord/dad catch: [] : [] PP control planned: [] discussed possible routes of delivery and associated risks: [] special requests: [] Plans Covid status: [] Flu vaccine: [] Tdap vaccine: [] Rhogam: [] LARC form signed: [] Problem list reviewed and updated with the most current plan of care details and appropriate orders placed. Relevant counseling for the gestational age provided. Continue routine care and follow up unless otherwise noted in visit notes/problem list details OB Flowsheet Initial Weight: Not Recorded Date -?-?-?-?-?-?-?-?-?-?-?-?- EGA Weight BP Urine Prot -?-?-?-?-?-?-?-?-?-?-?-?- Glucose FHR FuHt Pres Dilation -?-?-?-?-?-?-?-?-?-?-?-?- Effaced St Visit Note 08/14/22 -?-?-?-?-?-?-?-?-?-?-?-?- 10w 0d 174 lb 6 oz 123/86 Nega tive -?-?-?-?-?-?-?-?-?-?-?-?- Negative 179 -?-?-?-?-?-?-?-?-?-?-?-?- JV- single live IUP measuring 9weeks 3 days consistent with LMP. 09/12/22 -?-?-?-?-?-?-?-?-?-?-?-?- 14w 1d 174 lb 140/84 Negative -?-?-?-?-?-?-?-?-?-?-?-?- Negative 158 -?-?-?-?-?-?-?-?-?-?--?-?- LC- doing well. no concerns. no vb/cramping. declines afp. anatomy to be scheduled with [facility] 10/07/22 -?-?-?-?-?-?-?-?-?-?-?-?- 17w 5d 176 lb 124/82 Negative -?-?-?-?-?-?-?-?-?-?-?-?- Negative 162 -?-?-?-?-?-?-?-?-?-?-?-?- MH-No VB. Review ed PN labs. Some GERD-rev meds. 11/04/22 -?-?-?--?-?-?-?-?-?-?-?-?- 21w 5d 183 lb 8 oz 118/78 Nega tive -?-?-?-?-?-?-?-?-?-?-?-?- Negative 151 -?-?-?-?-?-?-?-?-?-?-?-?- MH-No Vb, LOF. F eeling movement. More anxiety but manageable. Considering zoloft 11/12/22 -?-?-?-?-?-?-?-?-?-?-?-?- 22w 6d 181 lb 6 oz 111/73 Nega tive -?-?-?-?-?-?-?-?-?-?-?-?- Negative 155 -?-?-?-?-?-?-?-?-?-?-?-?- LC- no vb/ctx. h aving questionable LOF. ROM plus sent- negative, neg bv/trich. gential cx sent. 12/02/22 -?-?-?-?-?--?-?-?-?-?-?-?- 25w 5d 187 lb 123/80 Negative -?-?-?-?-?-?-?-?-?-?-?-?- Negative 150 -?-?-?-?-?-?-?-?-?-?-?-?- JV- no lof, vagi nal bleeding but was having dec fm until this am. gct ordered. 12/15/22 -?-?-?-?-?-?-?-?-?-?-?-?- 27w 4d 188 lb 6 oz 125/80 Nega tive -?-?-?-?-?-?-?-?-?-?-?-?- Negative 145 28 -?-?-?-?-?-?-?-?-?-?-?-?- SM- no vb lof go od fm no regular ctx 12/22/22 -?-?-?-?-?-?-?-?-?-?-?-?- 28w 4d 189 lb 2 oz 131/79 Nega tive -?-?-?-?-?-?-?-?-?-?-?-?- Negative 140 -?-?-?-?-?-?-?-?-?-?-?-?- LC- pt with reso lved previa. 5%AC, obtaining NST today, reactive. c/o HR130- 140s at baseline that increases to 160s with activity per pt. cards consult placed. to call if worsens. LC- pt with resolved previa. however with 5%AC, obtaining NST today, reactive. c/o [id number] at baseline that increases to 160s with activity per pt. cards consult placed. to call if worsens. 01/01/23 -?-?-?-?-?-?-?-?-?-?-?-?- 30w 0d 190 lb 122/79 Negative -?-?-?-?-?-?-?--?-?-?-?-?- Negative 150 -?-?-?-?-?-?-?-?-?-?-?-?- JV- IUGR- pt is being monitored by mfm with q 2 week growths/dopplers. NST reactive today 01/08/23 -?-?-?-?-?-?-?-?-?-?-?-?- 31w 0d 193 lb 6 oz 113/74 Nega tive -?-?-?-?-?-?-?-?-?-?-?-?- Negative 150 -?-?-?-?-?-?-?-?-?-?-?-?- MH-NST only reac tive 01/12/23 -?-?-?-?-?-?-?-?-?-?-?-?- 31w 4d 191 lb 4 oz 106/69 Nega tive -?-?-?-?-?-?-?-?-?-?-?-?- Negative 145 -?-?-?-?-?-?-?-?-?--?-?-?- SM- no v lof goo d fm no regular ctx 01/22/23 -?-?-?-?-?-?-?-?-?-?-?-?- 33w 0d 196 lb 4 oz 111/72 Nega tive -?-?-?-?-?-?-?-?-?-?-?-?- Negative 150 -?-?-?-?-?-?-?-?-?-?-?-?- MH-NST only reac tive 01/29/23 -?-?-?-?-?-?-?-?-?-?-?-?- 34w 0d 198 lb 128/70 128/70 Negative -?-?-?-?-?-?-?-?-?-?-?-?- Negative 150 34 -?-?-?-?-?-?-?-?-?-?-?-?- JV- nst reactive . we discussed birthing plan today. only wants BF in room. we may need to be the bad pet counselor and excuse in-laws and mom. 02/05/23 -?-?-?-?-?-?-?-?-?-?-?-?- 35w 0d 197 lb 6 oz 112/77 Nega tive -?-?-?-?-?-?-?-?-?-?-?-?- Negative 150 -?-?-?-?-?-?-?-?-?-?-?-?- MH-Reactive NST. No VB, LOF or CTX. Good FM. 02/19/23 -?-?-?-?-?-?-?-?-?-?-?-?- 37w 0d 199 lb 114/76 Negative -?-?-?-?-?-?-?-?-?-?-?-?- Negative 150 0 -?-?-?-?-?-?-?-?-?-?-?-?- JV- growth scan from 02/16 states the AC is now up to 10th% and resolved IUGR however MFM is still doing bpp's and growths one more at 39 weeks. if IUGR at 39 week scan likely will require induction. normal dopplers. 02/26/23 -?-?-?-?-?-?-?-?-?-?-?-?- 38w 0d 191 lb 8 oz 121/80 Nega tive -?-?-?-?-?-?-?-?-?-?-?-?- Negative 150 0 -?-?-?-?-?-?-?-?-?-?-?-?- JV- IUGr resolve d but JV- IUGr resolved but mfm re commending 39 weeks IOL 03/05/23 -?-?-?-?-?-?-?-?-?-?-?-?- 39w 0d 201 lb 6 oz 139/81 120/72 120/78 138/89 120/76 118/75 -?-?-?-?-?-?-?-?-?-?-?-?- -?-?-?-?-?-?-?-?-?-?-?-?- NST FHR Rate Baby A Baseline: 130 Variability:: Moderate Accelerations:: 15 x 15 Decelerations:: None NST Reactive:: Yes FHR Category:: Category I Uterine Activity:: irregular ROS Constitutional Constitutional: Reports systems reviewed and no addt'l complaints, except as documented Eyes Eyes: Denies change in vision ENT HEENT: Reports systems reviewed and no addt'l complaints, except as documented; Denies headache(s) Cardiovascular Cardiovascular: Reports systems reviewed and no addt'l complaints, except as documented; Denies chest pain or dyspnea Respiratory/Chest Respiratory/Chest: Reports systems reviewed and no addt'l complaints, except as documented Gastrointestinal Gastrointestinal: Reports systems reviewed and no addt'l complaints, except as documented; Denies abdominal pain Genitourinary Genitourinary: Reports systems reviewed and no addt'l complaints, except as documented, contractions Details: present (irregular) and movement Details: present; Denies dysuria or genital lesions Musculoskeletal Musculoskeletal: Reports systems reviewed and no addt'l complaints, except as documented Neurologic Neurologic: Reports systems reviewed and no addt'l complaints, except as documented Endocrine Endocrinology: Reports systems reviewed and no addt'l complaints, except as documented Vital Signs Vital Signs Vital Signs: 03/05/23 17:29 03/05/23 17:29 03/05/23 17:29 Temperature Temperature Source Pulse Rate 99 Blood Pressure 139/81 H BP Systolic 139 BP Diastolic 81 Pulse Ox 98 03/05/23 17:29 03/05/23 17:29 03/05/23 17:29 Temperature 98.1 F Temperature Source Temporal Pulse Rate 100 Blood Pressure BP Systolic BP Diastolic Pulse Ox 03/05/23 17:29 03/05/23 17:29 03/05/23 17:40 Temperature 98.1 F Temperature Source Pulse Rate Blood Pressure 120/72 BP Systolic 120 BP Diastolic 72 Pulse Ox 98 03/05/23 17:40 03/05/23 17:51 03/05/23 17:51 Temperature Temperature Source Pulse Rate 104 H 97 Blood Pressure 120/78 BP Systolic 120 BP Diastolic 78 Pulse Ox 03/05/23 18:01 03/05/23 18:01 03/05/23 19:15 Temperature 98.1 F Temperature Source Pulse Rate 108 H Blood Pressure 138/89 H BP Systolic 138 BP Diastolic 89 Pulse Ox 03/05/23 19:14 03/05/23 19:15 03/05/23 19:15 Temperature Temperature Source Temporal Pulse Rate 99 Blood Pressure 120/76 BP Systolic 120 BP Diastolic 76 Pulse Ox 03/05/23 19:14 03/05/23 23:09 03/05/23 23:09 Temperature 98.1 F Temperature Source Temporal Pulse Rate Blood Pressure 118/75 BP Systolic 118 BP Diastolic 75 Pulse Ox 03/05/23 23:09 03/05/23 23:09 03/05/23 23:09 Temperature 98.2 F Temperature Source Pulse Rate 82 Blood Pressure BP Systolic BP Diastolic Pulse Ox 98 Weight Weight: 201 lb 6 oz Body Mass Index (BMI) 34.5 Physical Exam Const alert, oriented x3, no apparent distress and healthy appearing HEENT normocephalic and moist oral mucous membranes Head and Scalp: atraumatic Neck full ROM, no lymphadenopathy, supple and thyroid normal General: trachea midline Lymph Lymphatic: no lymphadenopathy noted Chest inspection of chest normal Resp normal respiratory effort Cardio regular rate GI normal to inspection, nondistended, normoactive bowel sounds, soft to palpation and non-tender Inspection: gravid external exam normal Manual OB Exam: estimated gestational size appropriate, presentation cephalic, dilated, effaced and station Extremity normal to inspection General Extremity: Negative for edema Skin no rashes or lesions noted Neuro no focal motor deficits and deep tendon reflexes 2+ bilaterally Motor Exam: strength 5/5 throughout and clonus absent Psych mental status grossly normal Labs Labs Labs: Blood Type O POSITIVE Antibody Screen NEGATIVE Hct 35.5 % (37-47) L Hgb 11.5 g/dL (12.0-15.0) L Syphilis Total Ab Non-reactive VZV IgG Antibody 859 index (Immune >165) Rubella IgG Antibody Reactive (Nonreactive) Hep Bs Antigen Non-Reactive (Nonreactive) Chlamydia DNA (RA) Negative (Negative) Neisseria gonorrhoeae DNA (RA) Negative (Negative) HIV 1&2 Antibody Non-Reactive (Nonreactive) Glucose 1 Hr 50 gm 157 mg/dL (70-140) H Assessment & Plan (1) Seasonal allergies: COMMENT: mainly Spring. Takes zyrtec as needed. (2) Anxiety: COMMENT: not medicated; noting more anxiety, considering zoloft and will call for RX (3) : QUALIFIERS: Weeks of gestation: 38 weeks Qualified Code(s): Z3A.38 - 38 weeks gestation of COMMENT: GBS neg. NIPT low risk, carrier neg. anatomy reviewed. 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 Growth US 12/18/22 37% AC at 5%. Growth US every 2 weeks, umbilical artery doppler weekly and delivery depends on EFW%. consider delivery 38-39weeks per [facility], 01/12 growth 8% 6.5 AC now 10th% and considered resolved if still at 39 weeks will have another growth scan as of 02/23- [facility] recommending IOL at 39 weeks regardless due to h/o IUGR earlier in the . set up for 03/05 at 7pm (8) Encounter for induction of labor: COMMENT: cytotec IOL PLAN: Plan Patient presents IOL, plan management for with cytotec then pitocin. Pain management: plans epidural. GBS negative. Management of any complications: IUGR I have reviewed the [facility] and made any clinically relevant updates. 03/06/23 0200 <Electronically signed by Fatmata Arteaga MD> Cosigner Signature (if applicable): CC: Dr. Fatmata Arteaga MD; No Primary Care Physician~ Signed [facility] Work Phone: 1(974) 939-263311-22-2022 NotePap Smear Specimen AdequacyNov2021 11:14amComment.Satisfactory for evaluation. Endocervical and/or squamous metaplasticcells (endocervical component)are present.[facility] A#[id number] Work Phone: Comment on above:Satisfactory for evaluation. Endocervical and/or squamous metaplasticcells (endocervical component)are present.08-05-2022 NotePap Smear Specimen AdequacyNov2021 11:14am Comment.Satisfactory for evaluation. Endocervical and/or squamous metaplasticcells (endocervical component)are present.[facility] A#[id number] HospitalComment on above:Satisfactory for evaluation. Endocervical and/or squamous metaplasticcells (endocervical component)are present.03-05-2021 History of Present illness Narrative* Shanta Oconnell MD - 03/05/2021 10:24 AM EDT Images from the original note were not included. [facility] - [facility] 2nd floor [place] [phone] Nerve Conduction & EMG Report Patient: Markel Lan Sex: Female Date of : 2000 Visit Date: 03/05/2021 10:11 Age: 20 Years Examining MD: Shanta Oconnell MD Referred by: LOBO Seay Temperature: 33.2 Current Height: 5 feet 4 inch Referred for: More than a year of bilateral wrist pain. + neck pain. No DM. Plan: This study is design to evaluate for entrapment neuropathy, median or ulnar neuropathy, radiculopathy, or brachial plexopathy. Procedure indication, side effects, complications, risk and alternatives were explain. Patient agreed to proceed with verbal consent obtain. Patient was instructed toclean the puncture site with soap and water and put some ice pack for bruising. EMG Summary: The bilateral median and ulnar motor and sensory nerve conduction studies were normal.The bilateral radial, medial and lateral antebrachial cutaneous sensory nerve conduction studies were also normal. Needle EMG of the tested muscle showed no abnormal spontaneous activity. Normal motor unit action potentials and recruitment patterns were seen. Impression: This is a normal EMG. There is NO clear electrodiagnostic evidence of a bilateral cervical radiculopathy, brachial plexopathy, entrapment neuropathy, median or ulnar neuropathy at this time. Shanta Oconnell MD Diplomate, ABPN, NBPAS Clinical Neurophysiology, Neurology, Vascular Neurology and Sleep Medicine [facility] [place] [phone] Motor NCS Nerve / Sites Muscle Latency Amplitude Distance Velocity ms mV cm m/s R Median - APB Wrist APB 2.71 15.7 7 Elbow APB 6.42 15.6 22 59.3 L Median - APB Wrist APB 2.81 11.7 7 Elbow APB 6.38 11.8 21 58.9 R Ulnar - ADM Wrist ADM 2.17 13.2 6.5 B.Elbow ADM 5.60 11.5 22 64.0 A.Elbow ADM 7.35 11.6 11 62.9 L Ulnar - ADM Wrist ADM 2.40 12.4 6.5 B.Elbow ADM 5.81 12.1 22 64.4 A.Elbow ADM 7.73 11.9 10 52.2 Sensory NCS Nerve / Sites Peak Amp Amp.2-3 Distance Velocity d Lat.2 ms V V cm m/s ms R Radial - Snuff Forearm 2.02 58.7 66.3 10 63 L Radial - Snuff Forearm 1.92 55.6 60.5 10 69 R Median, Ulnar - Transcarpal comparison Median Palm 1.60 94.2 101.8 8 66 Ulnar Palm 1.63 15.8 23.5 8 64 -0.02 L Median, Ulnar - Transcarpal comparison Median Palm 1.60 78.2 110.2 8 65 Ulnar Palm 1.58 26.4 27.3 8 66 0.02 EMG Summary Table Spontaneous Activity Amplitude Duration Recruitment Polyphasia Comment Muscle Ins Act Fib PSW Fasc - - - - - L. Cervical paraspinals Normal 0 0 0 Normal Normal Normal Normal Normal L. Deltoid Normal 0 0 0 Normal Normal Normal Normal Normal L. Triceps brachii Normal 0 0 0 Normal Normal Normal Normal Normal L. Biceps brachii Normal 0 0 0 Normal Normal Normal Normal Normal L. Pronator teres Normal 0 0 0 Normal Normal Normal Normal Normal L. Extensor digitorum communis Normal 0 0 0 Normal Normal Normal Normal Normal L. First dorsal interosseous Normal 0 0 0 Normal Normal Normal Normal Normal L. Abductor pollicis brevis Normal 0 0 0 Normal Normal Normal Normal Normal R. Cervical paraspinals Normal 0 0 0 Normal Normal Normal Normal Normal R. Deltoid Normal 0 0 0 Normal Normal Normal Normal Normal R. Triceps brachii Normal 0 0 0 Normal Normal Normal Normal Normal R. Biceps brachii Normal 0 0 0 Normal Normal Normal Normal Normal R. Pronator teres Normal 0 0 0 Normal Normal Normal Normal Normal R. Extensor digitorum communis Normal 0 0 0 Normal Normal Normal Normal Normal R. First dorsal interosseous Normal 0 0 0 Normal Normal Normal Normal Normal R. Abductor pollicis brevis Normal 0 0 0 Normal Normal Normal Normal Normal [facility]Evaluation [facility]* Diagnosis Chronic pain of both wrists- Primary [facility] Diagnosis Chronic pain of both wrists [facility] noteNo assessment information availableWGrant [facility] Work Phone: evaluation note* Diagnosis Onset Date Resolution Status Anxiety acute acute Seasonal allergies acute Supervision of high risk , antepartum acute [facility] Work Phone: evaluation note* Diagnosis Onset Date Resolution Status Anxiety acute acute Seasonal allergies acute Supervision of high risk , antepartum acute Anxiety acute acute Seasonal allergies acute Supervision of high risk , antepartum acute acute Supervision of high risk , antepartum acute [facility] Work Phone: evaluation note* Diagnosis Onset Date Resolution Status Anxiety acute acute Seasonal allergies acute Supervision of high risk , antepartum acute acute Supervision of high risk , antepartum acute Anxiety acute Placenta previa acute acute Supervision of high risk , antepartum acute Anxiety acute 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 Placenta previa acute acute Seasonal allergies acute Supervision of high risk , antepartum acute Anxiety acute 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 Placenta previa acute acute Seasonal allergies acute Supervision of high risk , antepartum acute Abnormal glucose in , antepartum acute Anxiety acute 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 Placenta previa acute acute Seasonal allergies acute Supervision of high risk , antepartum acute [facility] Work Phone: Evaluation note* Diagnosis Onset Date Resolution Status Anxiety acute 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 Placenta previa resolved resolved Seasonal allergies resolved Supervision of high risk , antepartum resolved Anxiety acute 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 Placenta previa resolved resolved Seasonal allergies resolved Supervision of high risk , antepartum resolved Anxiety acute 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 Abnormal glucose in , antepartum resolved Placenta previa resolved resolved Seasonal allergies resolved Supervision of high risk , antepartum resolved Anxiety acute Abnormal glucose in , antepartum resolved IUGR (intrauterine growth re striction) affecting care of mother resolved resolved Seasonal allergies resolved Supervision of high risk , antepartum resolved Tachycardia, unspecified res olved Anxiety acute 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 Abnormal glucose in , antepartum resolved IUGR (intrauterine growth re striction) affecting care of mother resolved Placenta previa resolved resolved Seasonal allergies resolved Supervision of high risk , antepartum resolved Tachycardia, unspecified res olved IUGR (intrauterine growth re striction) affecting care of mother resolved resolved Supervision of high risk , antepartum resolved Tachycardia, unspecified res olved Anxiety acute 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 Abnormal glucose in , antepartum resolved IUGR (intrauterine growth re striction) affecting care of mother resolved resolved Seasonal allergies resolved Supervision of high risk , antepartum resolved Anxiety acute 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 Abnormal glucose in , antepartum resolved IUGR (intrauterine growth re striction) affecting care of mother resolved resolved Seasonal allergies resolved Supervision of high risk , antepartum resolved IUGR (intrauterine growth re striction) affecting care of mother resolved resolved Supervision of high risk , antepartum resolved Anxiety acute 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 Abnormal glucose in , antepartum resolved IUGR (intrauterine growth re striction) affecting care of mother resolved Palpitations resolved resolved Seasonal allergies resolved Supervision of high risk , antepartum resolved Anxiety acute 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 Abnormal glucose in , antepartum resolved IUGR (intrauterine growth re striction) affecting care of mother resolved Palpitations resolved resolved Seasonal allergies resolved Supervision of high risk , antepartum resolved Anxiety acute 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 Abnormal glucose in , antepartum resolved IUGR (intrauterine growth re striction) affecting care of mother resolved resolved Seasonal allergies resolved Supervision of high risk , antepartum resolved Anxiety acute 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 Abnormal glucose in , antepartum resolved IUGR (intrauterine growth re striction) affecting care of mother resolved resolved Seasonal allergies resolved Supervision of high risk , antepartum resolved Anxiety acute 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 Abnormal glucose in , antepartum resolved IUGR (intrauterine growth re striction) affecting care of mother resolved resolved Seasonal allergies resolved Supervision of high risk , antepartum resolved Anxiety acute 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 delivery delivered acute Abnormal glucose in , antepartum resolved Encounter for induction of labor resolved IUGR (intrauterine growth re striction) affecting care of mother resolved resolved Seasonal allergies resolved Supervision of high risk , antepartum resolved Variable heart rate decelerations, antepartum resolved [facility] Work Phone: Evaluation note* Diagnosis Onset Date Resolution Status Anxiety acute 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 Placenta previa resolved resolved Seasonal allergies resolved Supervision of high risk , antepartum resolved Anxiety acute 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 Abnormal glucose in , antepartum resolved Placenta previa resolved resolved Seasonal allergies resolved Supervision of high risk , antepartum resolved Anxiety acute Abnormal glucose in , antepartum resolved IUGR (intrauterine growth re striction) affecting care of mother resolved resolved Seasonal allergies resolved Supervision of high risk , antepartum resolved Tachycardia, unspecified res olved Anxiety acute 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 Abnormal glucose in , antepartum resolved IUGR (intrauterine growth re striction) affecting care of mother resolved Placenta previa resolved resolved Seasonal allergies resolved Supervision of high risk , antepartum resolved Tachycardia, unspecified res olved IUGR (intrauterine growth re striction) affecting care of mother resolved resolved Supervision of high risk , antepartum resolved Tachycardia, unspecified res olved Anxiety acute 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 Abnormal glucose in , antepartum resolved IUGR (intrauterine growth re striction) affecting care of mother resolved resolved Seasonal allergies resolved Supervision of high risk , antepartum resolved Anxiety acute 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 Abnormal glucose in , antepartum resolved IUGR (intrauterine growth re striction) affecting care of mother resolved resolved Seasonal allergies resolved Supervision of high risk , antepartum resolved IUGR (intrauterine growth re striction) affecting care of mother resolved resolved Supervision of high risk , antepartum resolved Anxiety acute 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 Abnormal glucose in , antepartum resolved IUGR (intrauterine growth re striction) affecting care of mother resolved Palpitations resolved resolved Seasonal allergies resolved Supervision of high risk , antepartum resolved Anxiety acute 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 Abnormal glucose in , antepartum resolved IUGR (intrauterine growth re striction) affecting care of mother resolved Palpitations resolved resolved Seasonal allergies resolved Supervision of high risk , antepartum resolved Anxiety acute 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 Abnormal glucose in , antepartum resolved IUGR (intrauterine growth re striction) affecting care of mother resolved resolved Seasonal allergies resolved Supervision of high risk , antepartum resolved Anxiety acute 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 Abnormal glucose in , antepartum resolved IUGR (intrauterine growth re striction) affecting care of mother resolved resolved Seasonal allergies resolved Supervision of high risk , antepartum resolved Anxiety acute 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 Abnormal glucose in , antepartum resolved IUGR (intrauterine growth re striction) affecting care of mother resolved resolved Seasonal allergies resolved Supervision of high risk , antepartum resolved Anxiety acute 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 Abnormal glucose in , antepartum resolved Encounter for induction of labor resolved IUGR (intrauterine growth re striction) affecting care of mother resolved resolved Seasonal allergies resolved Supervision of high risk , antepartum resolved Variable heart rate decelerations, antepartum resolved Care and examination of lactating mother noneactive Anxiety acute Severe depression acute [facility] Work Phone: Evaluation note* Diagnosis Onset Date Resolution Status Anxiety acute 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 Placenta previa resolved resolved Seasonal allergies resolved Supervision of high risk , antepartum resolved Anxiety acute 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 Abnormal glucose in , antepartum resolved Placenta previa resolved resolved Seasonal allergies resolved Supervision of high risk , antepartum resolved Anxiety acute Abnormal glucose in , antepartum resolved IUGR (intrauterine growth re striction) affecting care of mother resolved resolved Seasonal allergies resolved Supervision of high risk , antepartum resolved Tachycardia, unspecified res olved Anxiety acute 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 Abnormal glucose in , antepartum resolved IUGR (intrauterine growth re striction) affecting care of mother resolved Placenta previa resolved resolved Seasonal allergies resolved Supervision of high risk , antepartum resolved Tachycardia, unspecified res olved IUGR (intrauterine growth re striction) affecting care of mother resolved resolved Supervision of high risk , antepartum resolved Tachycardia, unspecified res olved Anxiety acute 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 Abnormal glucose in , antepartum resolved IUGR (intrauterine growth re striction) affecting care of mother resolved resolved Seasonal allergies resolved Supervision of high risk , antepartum resolved Anxiety acute 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 Abnormal glucose in , antepartum resolved IUGR (intrauterine growth re striction) affecting care of mother resolved resolved Seasonal allergies resolved Supervision of high risk , antepartum resolved IUGR (intrauterine growth re striction) affecting care of mother resolved resolved Supervision of high risk , antepartum resolved Anxiety acute 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 Abnormal glucose in , antepartum resolved IUGR (intrauterine growth re striction) affecting care of mother resolved Palpitations resolved resolved Seasonal allergies resolved Supervision of high risk , antepartum resolved Anxiety acute 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 Abnormal glucose in , antepartum resolved IUGR (intrauterine growth re striction) affecting care of mother resolved Palpitations resolved resolved Seasonal allergies resolved Supervision of high risk , antepartum resolved Anxiety acute 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 Abnormal glucose in , antepartum resolved IUGR (intrauterine growth re striction) affecting care of mother resolved resolved Seasonal allergies resolved Supervision of high risk , antepartum resolved Anxiety acute 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 Abnormal glucose in , antepartum resolved IUGR (intrauterine growth re striction) affecting care of mother resolved resolved Seasonal allergies resolved Supervision of high risk , antepartum resolved Anxiety acute 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 Abnormal glucose in , antepartum resolved IUGR (intrauterine growth re striction) affecting care of mother resolved resolved Seasonal allergies resolved Supervision of high risk , antepartum resolved Anxiety acute 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 Abnormal glucose in , antepartum resolved Encounter for induction of labor resolved IUGR (intrauterine growth re striction) affecting care of mother resolved resolved Seasonal allergies resolved Supervision of high risk , antepartum resolved Variable heart rate decelerations, antepartum resolved Care and examination of lactating mother noneactive Anxiety acute Severe depression acute Nausea & vomiting acute Severe depression acute [facility] Work Phone: Evaluation note* Diagnosis Pain in left ankle and joints of left foot documented in this encounter [facility] Work Phone: Evaluation note* Diagnosis Encounter to establish care with new doctor- Primary History of iron deficiency CHARO (generalized anxiety disorder) Generalized anxiety disorder Depression, major, recurrent, mild Fatigue, unspecified type Heart palpitations Palpitations Encounter for wellness examination in adult Seasonal allergies Allergic rhinitis, cause unspecified Class 1 obesity due to excess calories without serious comorbidity with body mass index (BMI) of 32.0 to 32.9 in adult documented in this encounter [facility] Work Phone: History of Present illness Narrative* there are no concerns today. The patient's health since the last visit is described as good. There are no interval changes in the patient's PMH, PSH, and current medications. There are no interval changes in the patient's social and family history. She has regular dental visits. She denies vision problems. She denies hearing loss. Immunizations status: up to date. * Lifestyle: She does not have a healthy diet. She has weight concerns. She does not exercise regularly. She does not use tobacco. She denies alcohol use. Gaining weight. * Reproductive health: she reports normal menses. [facility] Work Phone: History of Present illness Narrative* Markel returns with complaints of bladder leakage for unsure amount of time. Has not had any children. Does not have frequent UTIs. * tender around umbilicus left side of to palpitation. Non-tender to palpitation around bladder, non distended. * uinalysis is neagtive. in office. [facility] Work Phone: History of Present illness Delon returns with complaints of bladder leakage she believes. She is unsure of when this started,but have recently thought it to be annoying enough, to get checked out. She denies any pregnancies/deliveries. She does not have any history of frequent UTIs. She denies any exposure to STIs or believe the wetness/discharge on her underwear is coming from her vagina. She reports some mild tenderness around her belly button that just started. Denies any new or different back/flank pain. She is sexually active and is in a monogamous relationship of 4 years.[facility] [address] DO Work Phone: History of Present illness Delon returns with complaints of bladder leakage she believes. She is unsure of when this started,but have recently thought it to be annoying enough, to get checked out. She denies any pregnancies/deliveries. She does not have any history of frequent UTIs. She denies any exposure to STIs or believe the wetness/discharge on her underwear is coming from her vagina. She reports some mild tenderness around her belly button that just started. Denies any new or different back/flank pain. She is sexually active and is in a monogamous relationship of 4 years.[facility] Work Phone: Hospital Discharge instructions Additional Instructions Please eat a bland diet for the next 48 hours. Tomorrow brought anything that he can see through. Make sure that you get enough electrolytes. Please return here for worsening symptoms. You will not feel 100% in the next 24 to 48 hours however you need to keep improving. [facility] Discharge instructionsAmbulatory Orders* Gastroenterology Location: None Selected [facility] Work Phone: Reason for visit Narrative* Imaging (Routine) - Authorized Specialty Diagnoses / Procedures Referred By Contac t Referred To Contact Radiology Diagnoses Pain in left ankle and joints of left foot Procedures XR ankle left 3+ views Ingrid Perez, DPKalyani [address] [place] [address] Phone: tel: fax: Referral ID Status Reason Start Date Expiration Date Visits Requested Visits Authorized [id number] Authorized Perform Procedure 4 08/29/2025 1 1 [facility] Work Phone: Summary Purpose Family History Mother Name Dates Details Family history of malignant neoplasm of breast(V16.3, Z80.3) Status:Active Mother Name Dates Details Family history of malignant neoplasm of breast(V16.3, Z80.3) Status:Active Mother Name Dates Details Family history of malignant neoplasm of breast(V16.3, Z80.3) Status:Active Unknown Family Member Name Dates Details Family history of malignant neoplasm of breast: Mother(V16.3, Z80.3) Status:Active Unknown Family Member Name Dates Details Family history of malignant neoplasm of breast: Mother(V16.3, Z80.3) Status:Active Unknown Family Member Name Dates Details Family history of malignant neoplasm of breast: Mother(V16.3, Z80.3) Status:Active Unknown Family Member Name Dates Details Family history of malignant neoplasm of breast: Mother(V16.3, Z80.3) Status:Active Unknown Family Member Name Dates Details Family history of malignant neoplasm of breast: Mother(V16.3, Z80.3) Status:Active Relationship Condition Age at Onset Recorded Date/T hillary mother Malignant neoplasm of breast 40 Advance Directives Documents on File Type Date Recorded 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 Advance Directives and Living Will 12/21/2019 12:00 AM NO LIVING WILL OR PO A 12-21-2019 Advance Directive Response Recorded Date/ Time Living Will No March 05, 2023 6:44pm Power of Ear Mold Laboratory Technician No March 05 6:44pm Advance Directive Response Recorded Date/ Time Living Will No March 13, 2023 3:21pm Power of Ear Mold Laboratory Technician No March 13 3:21pm Reason for Referral Status Reason Specialty Diagnoses / Procedures Referred By Contact Referred To Contact Authorized Neurology Diagnoses Chronic pain of both wrists Jim Seay February, 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 Chief Complaint and Reason for Visit Chief Complaint NOB LMP 06/05 Reason for Visit Anxiety Seasonal allergies Supervision of high risk , antepartum Chief Complaint NOB LMP 06/05 14wk ob 18 WK OB Reason for Visit Anxiety Seasonal allergies Supervision of high risk , antepartum Anxiety Seasonal allergies Supervision of high risk , antepartum Supervision of high risk , antepartum Chief Complaint 14wk ob 18 WK OB 22 WK OB ROM check 25 WK OB Encounter for screening for diabetes mellitus 28 WK OB Reason for Visit Anxiety Seasonal allergies Supervision of high risk , antepartum Supervision of high risk , antepartum Anxiety Placenta previa Supervision of high risk , antepartum Anxiety ASCUS with 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 Placenta previa Seasonal allergies Supervision of high risk , antepartum Anxiety ASCUS with 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 Placenta previa Seasonal allergies Supervision of high risk , antepartum Abnormal glucose in , antepartum Anxiety ASCUS with 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 Placenta previa Seasonal allergies Supervision of high risk , antepartum Chief Complaint ROM check 25 WK OB Encounter for screening for diabetes mellitus 28 WK OB NST 30 WK OB/NST NST 32 WK OB / nst NST NST Amb Documentation NST 34 wk ob/NST 36 WK OB 37 WK OB 38 WK OB/NST INDUCTION INDUCTION INDUCTION INDUCTION Reason for Visit Anxiety ASCUS with 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 Placenta previa Seasonal allergies Supervision of high risk , antepartum Anxiety ASCUS with 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 Placenta previa Seasonal allergies Supervision of high risk , antepartum Anxiety ASCUS with 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 Abnormal glucose in , antepartum Placenta previa Seasonal allergies Supervision of high risk , antepartum Anxiety Abnormal glucose in , antepartum IUGR (intrauterine growth restriction) affecting care of mother Seasonal allergies Supervision of high risk , antepartum Tachycardia, unspecified Anxiety ASCUS with 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 Abnormal glucose in , antepartum IUGR (intrauterine growth restriction) affecting care of mother Placenta previa Seasonal allergies Supervision of high risk , antepartum Tachycardia, unspecified IUGR (intrauterine growth restriction) affecting care of mother Supervision of high risk , antepartum Tachycardia, unspecified Anxiety ASCUS with 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 Abnormal glucose in , antepartum IUGR (intrauterine growth restriction) affecting care of mother Seasonal allergies Supervision of high risk , antepartum Anxiety ASCUS with 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 Abnormal glucose in , antepartum IUGR (intrauterine growth restriction) affecting care of mother Seasonal allergies Supervision of high risk , antepartum IUGR (intrauterine growth restriction) affecting care of mother Supervision of high risk , antepartum Anxiety ASCUS with 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 Abnormal glucose in , antepartum IUGR (intrauterine growth restriction) affecting care of mother Palpitations Seasonal allergies Supervision of high risk , antepartum Anxiety ASCUS with 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 Abnormal glucose in , antepartum IUGR (intrauterine growth restriction) affecting care of mother Palpitations Seasonal allergies Supervision of high risk , antepartum Anxiety ASCUS with 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 Abnormal glucose in , antepartum IUGR (intrauterine growth restriction) affecting care of mother Seasonal allergies Supervision of high risk , antepartum Anxiety ASCUS with 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 Abnormal glucose in , antepartum IUGR (intrauterine growth restriction) affecting care of mother Seasonal allergies Supervision of high risk , antepartum Anxiety ASCUS with 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 Abnormal glucose in , antepartum IUGR (intrauterine growth restriction) affecting care of mother Seasonal allergies Supervision of high risk , antepartum Anxiety ASCUS with 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 delivery delivered Abnormal glucose in , antepartum Encounter for induction of labor IUGR (intrauterine growth restriction) affecting care of mother Seasonal allergies Supervision of high risk , antepartum Variable heart rate decelerations, antepartum Chief Complaint 25 WK OB Encounter for screening for diabetes mellitus 28 WK OB NST 30 WK OB/NST NST 32 WK OB / nst NST NST Amb Documentation NST 34 wk ob/NST 36 WK OB 37 WK OB 38 WK OB/NST INDUCTION INDUCTION INDUCTION INDUCTION assessment pp depression N/V Reason for Visit Anxiety ASCUS with 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 Placenta previa Seasonal allergies Supervision of high risk , antepartum Anxiety ASCUS with 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 Abnormal glucose in , antepartum Placenta previa Seasonal allergies Supervision of high risk , antepartum Anxiety Abnormal glucose in , antepartum IUGR (intrauterine growth restriction) affecting care of mother Seasonal allergies Supervision of high risk , antepartum Tachycardia, unspecified Anxiety ASCUS with 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 Abnormal glucose in , antepartum IUGR (intrauterine growth restriction) affecting care of mother Placenta previa Seasonal allergies Supervision of high risk , antepartum Tachycardia, unspecified IUGR (intrauterine growth restriction) affecting care of mother Supervision of high risk , antepartum Tachycardia, unspecified Anxiety ASCUS with 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 Abnormal glucose in , antepartum IUGR (intrauterine growth restriction) affecting care of mother Seasonal allergies Supervision of high risk , antepartum Anxiety ASCUS with 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 Abnormal glucose in , antepartum IUGR (intrauterine growth restriction) affecting care of mother Seasonal allergies Supervision of high risk , antepartum IUGR (intrauterine growth restriction) affecting care of mother Supervision of high risk , antepartum Anxiety ASCUS with 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 Abnormal glucose in , antepartum IUGR (intrauterine growth restriction) affecting care of mother Palpitations Seasonal allergies Supervision of high risk , antepartum Anxiety ASCUS with 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 Abnormal glucose in , antepartum IUGR (intrauterine growth restriction) affecting care of mother Palpitations Seasonal allergies Supervision of high risk , antepartum Anxiety ASCUS with 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 Abnormal glucose in , antepartum IUGR (intrauterine growth restriction) affecting care of mother Seasonal allergies Supervision of high risk , antepartum Anxiety ASCUS with 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 Abnormal glucose in , antepartum IUGR (intrauterine growth restriction) affecting care of mother Seasonal allergies Supervision of high risk , antepartum Anxiety ASCUS with 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 Abnormal glucose in , antepartum IUGR (intrauterine growth restriction) affecting care of mother Seasonal allergies Supervision of high risk , antepartum Anxiety ASCUS with 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 Abnormal glucose in , antepartum Encounter for induction of labor IUGR (intrauterine growth restriction) affecting care of mother Seasonal allergies Supervision of high risk , antepartum Variable heart rate decelerations, antepartum Care and examination of lactating mother Anxiety Severe depression Chief Complaint 25 WK OB Encounter for screening for diabetes mellitus 28 WK OB NST 30 WK OB/NST NST 32 WK OB / nst NST NST Amb Documentation NST 34 wk ob/NST 36 WK OB 37 WK OB 38 WK OB/NST INDUCTION INDUCTION INDUCTION INDUCTION assessment pp depression N/V incision check, 1 wk pp depression fu Reason for Visit Anxiety ASCUS with 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 Placenta previa Seasonal allergies Supervision of high risk , antepartum Anxiety ASCUS with 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 Abnormal glucose in , antepartum Placenta previa Seasonal allergies Supervision of high risk , antepartum Anxiety Abnormal glucose in , antepartum IUGR (intrauterine growth restriction) affecting care of mother Seasonal allergies Supervision of high risk , antepartum Tachycardia, unspecified Anxiety ASCUS with 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 Abnormal glucose in , antepartum IUGR (intrauterine growth restriction) affecting care of mother Placenta previa Seasonal allergies Supervision of high risk , antepartum Tachycardia, unspecified IUGR (intrauterine growth restriction) affecting care of mother Supervision of high risk , antepartum Tachycardia, unspecified Anxiety ASCUS with 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 Abnormal glucose in , antepartum IUGR (intrauterine growth restriction) affecting care of mother Seasonal allergies Supervision of high risk , antepartum Anxiety ASCUS with 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 Abnormal glucose in , antepartum IUGR (intrauterine growth restriction) affecting care of mother Seasonal allergies Supervision of high risk , antepartum IUGR (intrauterine growth restriction) affecting care of mother Supervision of high risk , antepartum Anxiety ASCUS with 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 Abnormal glucose in , antepartum IUGR (intrauterine growth restriction) affecting care of mother Palpitations Seasonal allergies Supervision of high risk , antepartum Anxiety ASCUS with 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 Abnormal glucose in , antepartum IUGR (intrauterine growth restriction) affecting care of mother Palpitations Seasonal allergies Supervision of high risk , antepartum Anxiety ASCUS with 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 Abnormal glucose in , antepartum IUGR (intrauterine growth restriction) affecting care of mother Seasonal allergies Supervision of high risk , antepartum Anxiety ASCUS with 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 Abnormal glucose in , antepartum IUGR (intrauterine growth restriction) affecting care of mother Seasonal allergies Supervision of high risk , antepartum Anxiety ASCUS with 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 Abnormal glucose in , antepartum IUGR (intrauterine growth restriction) affecting care of mother Seasonal allergies Supervision of high risk , antepartum Anxiety ASCUS with 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 Abnormal glucose in , antepartum Encounter for induction of labor IUGR (intrauterine growth restriction) affecting care of mother Seasonal allergies Supervision of high risk , antepartum Variable heart rate decelerations, antepartum Care and examination of lactating mother Anxiety Severe depression Nausea & vomiting Severe depression Additional Source Comments INFORMATION SOURCE (unrecogn ized section and content) DATE CREATED AUTHOR 03/09/2018 [facility] DATE CREATED AUTHOR AUTHOR'S ORGANIZ ATION 05/03/2018 [facility] DATE CREATED AUTHOR AUTHOR'S ORGANIZ ATION 06/26/2019 [facility] DATE CREATED AUTHOR AUTHOR'S ORGANIZ ATION 03/06/2021 [facility] DATE CREATED AUTHOR AUTHOR'S ORGANIZ ATION 02/13/2022 [employer] DATE CREATED AUTHOR AUTHOR'S ORGANIZ ATION 09/07/2022 [facility] DATE CREATED AUTHOR AUTHOR'S ORGANIZ ATION 03/02/2023 [facility] DATE CREATED AUTHOR AUTHOR'S ORGANIZ ATION 03/31/2024 [facility] DATE CREATED AUTHOR AUTHOR'S ORGANIZ ATION 08/06/2024 [facility] DATE CREATED AUTHOR AUTHOR'S ORGANIZ ATION 09/04/2024 [facility] Reason for Visit (unrecogniz ed section and content) Status Reason Specialty Diagnoses / Procedures Referre d By Contact Referred To Contact Closed Neurology Diagnoses Chronic pain of both wrists Jim Seay Flora, CUSTOMER LOYALTY REPRESENTATIVE [address] [place] [address] Shanta Oconnell MD [facility] [address] [address] Reason Comments Establish Care ESTABLISH NEW PTPT J UST FOUND OUT THAT SHE IS Goals (unrecognized section and content) Goals may be documented in a n alternate sectionGoals may be documented in an alternate sectionGoals may be documented in an alternate sectionGoals may be documented in an alternate section Care Teams (unrecognized sec tion and content) Team Status: Active Member Role Status Dates No Primary Care Physician Primary Care Provider Active Team Status: Inactive Member Role Status Dates Jim Seay EXECUTIVE ASSOCIATE, EXECUTIVE ASSOCIATE-C Referring Provider Active Dr. Carine Romero DO Attending Provider Activ e No Primary Care Physician Primary Care Provider Active Team Status: Inactive Member Role Status Dates No Primary Care Physician Primary Care Provider, Refer ring Provider Active Elmer Hinkle CNM Attending Provider Active Team Status: Inactive Member Role Status Dates No Primary Care Physician Primary Care Provider, Refer ring Provider Active Hawa Mota EXECUTIVE ASSOCIATE, EXECUTIVE ASSOCIATE-C Attending Provider Active Team Status: Inactive Member Role Status Dates Dr. Raghavendra Reyes MD Attending Provider Active Team Status: Inactive Member Role Status Dates No Primary Care Physician Primary Care Provider Active Dr. Carine Romero DO Attending Provider, Refe rring Provider Active Team Status: Inactive Member Role Status Dates No Primary Care Physician Primary Care Provider Active Hawa Mota EXECUTIVE ASSOCIATE, EXECUTIVE ASSOCIATE-C Attending Provider Active Team Status: Inactive Member Role Status Dates No Primary Care Physician Primary Care Provider, Refer ring Provider Active Dr. Carine Romero DO Attending Provider Activ e Team Status: Inactive Member Role Status Dates No Primary Care Physician Primary Care Provider, Refer ring Provider Active Dr. Fatmata Arteaga MD Attending Provider Active Team Status: Inactive Member Role Status Dates No Primary Care Physician Primary Care Provider Active Elmer Hinkle CNM Attending Provider, Referring Pr ovider Active Team Status: Active Member Role Status Dates No Primary Care Physician Primary Care Provider Active Dr. Carine Romero DO Attending Provider, Refe rring Provider Active Team Status: Inactive Member Role Status Dates No Primary Care Physician Primary Care Provider, Refer ring Provider Active Dr. Fatmata Arteaga MD Active Elmer Hinkle CNM Attending Provider Active Team Status: Active Member Role Status Dates No Primary Care Physician Primary Care Provider Active Chelsey Hess Attending Provider Active Team Status: Active Member Role Status Dates No Primary Care Physician Primary Care Provider Active Dr. Fatmata Arteaga MD Admit Provid er, Attending Provider, Referring Provider, Other Provider Active Team Status: Active Member Role Status Dates No Primary Care Physician Primary Care Provider Active Dr. Fatmata Arteaga MD Admit Provid er, Referring Provider, Other Provider Active Raisa Hawkins CNM Attending Provider Active Team Status: Active Member Role Status Dates No Primary Care Physician Primary Care Provider Active Dr. Fatmata Arteaga MD Attending Provider, Referr ing Provider Active Team Status: Inactive Member Role Status Dates No Primary Care Physician Primary Care Provider Active Dr. Fatmata Arteaga MD Admit Provid er, Attending Provider, Referring Provider Active Team Status: Inactive Member Role Status Dates No Primary Care Physician Primary Care Provider, Refer ring Provider Active Ivy Lock EXECUTIVE ASSOCIATE, EXECUTIVE ASSOCIATE-C Attending Provider Active Team Status: Inactive Member Role Status Dates No Primary Care Physician Primary Care Provider, Refer ring Provider Active Raisa Hawkins CNM Attending Provider Active Team Status: Inactive Member Role Status Dates No Primary Care Physician Primary Care Provider Active Dr. Everardo Zepeda MD Emergency Provider Active Team Status: Inactive Member Role Status Dates No Primary Care Physician Primary Care Provider Active Dr. Fatmata Arteaga MD Attending Provider, Referr ing Provider Active Team Status: Inactive Member Role Status Dates No Primary Care Physician Primary Care Provider Active Dr. Everardo Zepeda MD Attending Provider, Emergency Provider Active E Merchant Relationship Specialty Start Date End Date Jim Seay, CYTOGENETICS LABORATORY MANAGER-CUSTOMER LOYALTY REPRESENTATIVE [address] [facility] [place] [address] PCP - General 12/21/19 E Merchant Relationship Specialty Start Date End Date Ursula Rosas, MAURICEC [address] [place] [address] PCP - General Internal Medicine 03/22/25 FOR RECORDS PERTAINING TO PATIENTS WHO ARE OR HAVE BEEN ENROLLED IN A CHEMICAL DEPENDENCY/SUBSTANCEABUSE PROGRAM, SOME INFORMATION MAY BE OMITTED. This clinical summary was aggregated from multiple sources. Caution should be exercised in using it in the provision of clinical care. This summary normalizes information from multiple sources, and as a consequence, information in this document may materially change the coding, format and clinical context of patient data. In addition, data may be omitted in some cases. CLINICAL DECISIONS SHOULD BE BASED ON THE PRIMARY CLINICAL RECORDS. [facility] [employer] provides no warranty or guarantee of the accuracy or completeness of information in this document.
[2025-03-25 13:02] LABS: hCG Titer Quant., Serum 370 mIU/mL (<9 non-preg)
== END | disposition home or self-care (01) ==
LOC: LAB 11:37
PROVIDERS: Referring Provider Obstetrics & Gynecology; Visit Provider Obstetrics & Gynecology
DX: O20.9 Hemorrhage in early pregnancy, unspecified (principal); Z3A.00 Weeks of gestation of pregnancy not specified
CPT/HCPCS: 36415; 84702

== ENCOUNTER → 2025-04-18 | Outpatient (CLI) | payer OTHER, SELFPAY ==
[2025-04-21 06:07] LABS: Chlamydia By Nucleic Acid AMP Negative (Negative); Gonococcus By Nucleic Acid AMP Negative (Negative)
== END | disposition home or self-care (01) ==
LOC: LABSPEC 15:59
PROVIDERS: Referring Provider Advanced Practice Midwife; Visit Provider Advanced Practice Midwife
DX: O09.90 Supervision of high risk pregnancy, unspecified, unspecified trimester (principal); Z3A.00 Weeks of gestation of pregnancy not specified
CPT/HCPCS: 87086; 87088; 87491; 87591

== ENCOUNTER → 2025-05-05 | Outpatient (CLI) | payer OTHER, SELFPAY ==
[2025-05-05 12:47] LABS: Hematocrit 36.1 % (37-47); Hemoglobin 12.2 g/dL (12.0-15.0); Immature Granulocytes Count 0.050 X10^3/uL (0.0-0.0); Mean Corp Hgb Conc 33.8 g/dL (32-36); Mean Corpuscular Volume 82.2 fL (81-99); Mean Platelet Vol. 9.3 fl (6.2-12.0); NRBC Flagged by Analyzer 0 % (0-5); Platelet Count 322 K/mm3 (150-450); RBC Distribution Width CV 13.2 % (11.6-14.6); RBC Distribution Width SD 39.5 fl (35.1-43.9); Red Blood Count 4.39 M/mm3 (4.2-5.4); White Blood Count 8.5 K/mm3 (4.4-11.0)
[2025-05-05 16:09] LABS: HIV Nonreactive (Nonreactive); Hepatitis B Surface Antigen Nonreactive (Nonreactive); Hepatitis C Antibody Nonreactive (Nonreactive); Syphilis Antibodies Nonreactive (Nonreactive)
== END | disposition home or self-care (01) ==
PROVIDERS: Visit Provider Advanced Practice Midwife
DX: O99.210 Obesity complicating pregnancy, unspecified trimester (principal); Z3A.00 Weeks of gestation of pregnancy not specified
CPT/HCPCS: 36415; 83036; 85025; 86703; 86762; 86780; 86803; 86850; 86900; 86901; 87340

== ENCOUNTER 2025-08-31 07:45 | Outpatient (CLI) | payer OTHER, SELFPAY ==
[2025-08-31] VITALS (7 sets, daily range): BP systolic 124; BP diastolic 72; PULSE 85–100; RESP 16; TEMP 36.5; O2SAT 96–99; BMI 34.3
--- NOTE | 2025-08-31 08:31 | OB.TRI.PN ---
Progress Notes Progress Note: Taylor Avelar is a at 27w1d who presented to OB triage for decreased movement since yesterday afternoon. She does note having an anterior placenta. Otherwise no complaints. After receiving juice in triage, she felt much more movement. FHT was appropriate for gestational age. Home with decreased movement precautions. NST FHR Rate Baby A Baseline: 145 Variability:: Moderate Accelerations:: 10 x 10 Decelerations:: None NST Reactive:: Appropriate for gestational age
== END 2025-08-31 08:42 | disposition home or self-care (01) ==
LOC: WPOUT 07:50 → WP 07:58
PROVIDERS: Referring Provider Student in an Organized Health Care Education/Training Program; Visit Provider Student in an Organized Health Care Education/Training Program
DX: O36.8120 Decreased fetal movements, second trimester, not applicable or unspecified (principal); Z3A.27 27 weeks gestation of pregnancy
CPT/HCPCS: 99221; A4216; G0378

== ENCOUNTER → 2025-09-04 | Outpatient (CLI) | payer OTHER, SELFPAY ==
[2025-09-04 12:55] LABS: Hematocrit 34.1 % (37-47); Hemoglobin 11.0 g/dL (12.0-15.0); Immature Granulocytes Count 0.080 X10^3/uL (0.0-0.0); Mean Corp Hgb Conc 32.3 g/dL (32-36); Mean Corpuscular Volume 83.6 fL (81-99); Mean Platelet Vol. 9.5 fl (6.2-12.0); NRBC Flagged by Analyzer 0 % (0-5); Platelet Count 270 K/mm3 (150-450); RBC Distribution Width CV 14.1 % (11.6-14.6); RBC Distribution Width SD 43.2 fl (35.1-43.9); Red Blood Count 4.08 M/mm3 (4.2-5.4); White Blood Count 9.4 K/mm3 (4.4-11.0)
[2025-09-04 13:45] LABS: Glucose Challenge Gest 1H 50g 140 mg/dL (70-140); HIV Nonreactive (Nonreactive); Syphilis Antibodies Nonreactive (Nonreactive)
== END | disposition home or self-care (01) ==
PROVIDERS: Obstetrics & Gynecology; Visit Provider Nurse Practitioner Women's Health
DX: O09.90 Supervision of high risk pregnancy, unspecified, unspecified trimester (principal); Z3A.00 Weeks of gestation of pregnancy not specified; Z13.1 Encounter for screening for diabetes mellitus
CPT/HCPCS: 36415; 82950; 85025; 86703; 86780